=== PATIENT | male | born 1970 | race African-American/Black ===

== ENCOUNTER 2020-05-18 07:59 | Outpatient (REF) | payer OTHER, SELFPAY | END 2020-05-18 08:00 | disposition home or self-care (01) | LOC: HO.HOSX 07:59 | PROVIDERS: Visit Provider Physician Assistant | DX: M25.511 Pain in right shoulder (principal) | CPT/HCPCS: 20610; J1040 ==

== ENCOUNTER 2020-05-29 10:52 | Outpatient (REF) | payer OTHER, SELFPAY ==
--- NOTE | ~2020-05-29 | MR_ITS ---
EXAMINATION: MR SHOULDER WITHOUT CONTRAST, RIGHT CLINICAL INFORMATION: Unspecified injury of the muscles and tendons. Patient reports right shoulder pain. Decreased range of motion. Difficulty sleeping. COMPARISON: None TECHNIQUE: MRI of the shoulder without contrast was performed on a high-field scanner. FINDINGS: ROTATOR CUFF: The supraspinatus tendon is markedly thickened and heterogeneous with bursal surface fraying of the more posterior supraspinatus tendon fibers. Similar severe tendinosis is evident within the infraspinatus, more pronounced anteriorly. No discrete tears are identified. There is more mild subscapularis tendinosis. No muscle atrophy or fatty infiltration. As seen on image 14 and 15 of series 4, there is a 1.3 x 0.7 x 0.6 cm focus of low signal intensity present in the infraspinatus along the anterior aspect of the myotendinous junction, most consistent with calcific tendinitis. Additional foci of calcific tendinitis may be present near the insertion, though sensitivity is more limited due to the severity of the tendinosis in this region. BICEPS: Normal. CORACOACROMIAL ARCH: The undersurface of the acromion is flat with a small anterior subacromial spur. There is mild acromioclavicular osteoarthritis. A small volume of fluid is present in the subacromial-subdeltoid bursa, consistent with bursitis. LABRUM/CAPSULE: Posterosuperior labrum is diminutive and irregular, most consistent with labral degeneration. No discrete tears are identified. Joint capsule is intact. GLENOHUMERAL JOINT/MARROW: There is cortical irregularity at the humeral head posteriorly with mild underlying edema signal, potentially reactive to the overlying tendinosis or due to internal impingement. Glenohumeral articular cartilage appears relatively well-preserved. No fracture or malalignment. Small glenohumeral joint effusion. No loose bodies. MR/MR shoulder RT wo con IMPRESSION: 1. Severe supraspinatus and infraspinatus tendinosis without a discrete tear. A 1.3 cm focus of calcification is present at the myotendinous junction of the infraspinatus, likely corresponding to calcific tendinitis. Sensitivity for smaller foci is somewhat limited. 2. Mild acromioclavicular osteoarthritis. 3. Mild subacromial-subdeltoid bursitis. 4. Degenerative fraying of the posterosuperior glenoid labrum. Given the cortical irregularity and subcortical edema at the posterior aspect of the humeral head near the greater tuberosity, this could correspond to chronic changes of internal impingement (posterosuperior impingement).
== END 2020-05-29 10:53 | disposition home or self-care (01) ==
LOC: HO.MRI 10:52
PROVIDERS: Visit Provider Physician Assistant
DX: S46.001A Unspecified injury of muscle(s) and tendon(s) of the rotator cuff of right shoulder, initial encounter (principal); X58.XXXA Exposure to other specified factors, initial encounter; Y93.9 Activity, unspecified; Y92.9 Unspecified place or not applicable; Y99.9 Unspecified external cause status
CPT/HCPCS: 73221

== ENCOUNTER → 2020-06-16 10:18 | Outpatient (BNVA) | payer OTHER, SELFPAY | PROVIDERS: Visit Provider Physician Assistant ==

== ENCOUNTER 2020-07-26 09:00 | Outpatient (RCR) | payer OTHER, SELFPAY ==
--- NOTE | 2020-05-25 13:08 | MHC.PT.EP ---
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 HE IS A GOOD CANDIDATE FOR SKILLED PT TO ADDRESS THE ABOVE FINDINGS- TRAUMATIC IMPINGEMENT AND THE LEVEL OF RC INVOLVEMENT-> MRI FRIDAY. 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 Manual therapy to restore motion and function. Therapeutic exercise to improve strength and flexibility. Neuromuscular re-education for posture and balance. Therapeutic activities to return to functional activities of daily living. Electronically signed by: Viviana Schmidt,PT Please sign and return to therapist. Thank you for your referral.
--- NOTE | 2020-08-09 14:13 | MHC.PT.DC ---
[facility] [place] Office [place] Office [place] Office [address] Epi Ontiveros [address] [phone] F: [phone] F: [phone] F: [phone] F: [phone] Physical Therapy Discharge Report Diagnosis: RIGHT ROTATOR CUFF INJURY Date of Surgery: Date of Evaluation: 05/25/20 Date of Discharge: 08/09/20 Treatments to Date: 14 Cancellations to Date: 0 No Shows to Date: 2 Discharge Status: Achieved Goals Improved Function Independent with HEP Patient Elected to Stop Discharge Summary: Pt DEMON IMPROVED RC/ SCAP STRENGTH AND SCAP SYMMETRY- HE HAS IMPROVED FUNCT MOB/ ACTIVITY TOLERANCE, INDEP W SELF POSTURAL CORRECTION- AND IMPROVED AROM W RESIDUAL ROM RESTRICTION W IR POSTERIORLY Electronically signed by: Viviana Schmidt,PT Please sign and return to therapist. Thank you for your referral.
== END 2020-08-09 14:14 | disposition home or self-care (01) ==
LOC: HO.PTCHIC 09:00
PROVIDERS: Visit Provider Physician Assistant
DX: S46.009A Unspecified injury of muscle(s) and tendon(s) of the rotator cuff of unspecified shoulder, initial encounter (principal)
CPT/HCPCS: 97014; 97110; 97140; 97162

== ENCOUNTER → 2020-10-18 14:15 | Outpatient (BNVA) | payer OTHER, SELFPAY | PROVIDERS: Visit Provider Physician Assistant | DX: S46.001A Unspecified injury of muscle(s) and tendon(s) of the rotator cuff of right shoulder, initial encounter (principal) | CPT/HCPCS: 20610; J1040 ==

== ENCOUNTER 2021-02-21 08:39 | Outpatient (REF) | payer OTHER, SELFPAY ==
[2021-02-21 09:24] LABS: Binax Internal Control QC Valid; Binax Now Covid-19 Ag Negative (Negative)
== END 2021-02-21 08:40 | disposition home or self-care (01) ==
LOC: HO.LAB 08:39
PROVIDERS: Visit Provider Internal Medicine
DX: Z20.822 Contact with and (suspected) exposure to COVID-19 (principal)
CPT/HCPCS: C9803

== ENCOUNTER 2021-07-14 17:25 | Emergency (ER) | payer OTHER, SELFPAY ==
[2021-07-14 17:36] VITALS: BP 129/82; PULSE 74; RESP 18; TEMP 36.9; O2SAT 99; BMI 19.5
[2021-07-14] MEDS: Diphth,Pertus(ACell),Tet Adult 0.5 ML SYRINGE IM (19:34)
[2021-07-14] MEDS: Lidocaine HCl 2 % 20 ML VIAL 5 ML INFILTRATI (19:36)
--- NOTE | 2021-07-14 20:10 | ED_ITS ---
HPI - Wound/Laceration General Chief Complaint: Wound/Laceration Stated Complaint: Lac on L index finger Time Seen by Provider: 07/14/21 19:13 Source: patient Mode of arrival: ambulatory Limitations: no limitations History of Present Illness HPI narrative: 50-year-old male with laceration to left index finger that he sustained wall using a machine ii trimmer earlier today. Related Data Home Medications Medication Instructions Recorded Confirmed acetaminophen 325 mg capsule 325 mg PO QID PRN 05/18/20 (Tylenol) Allergies Allergy/AdvReac Type Severity Reaction Status Date / Time No Known Allergies Allergy Verified 10/18/20 14:29 Review of Systems Constitutional: Constitutional: Denies body ache(s), Denies chills, Denies fatigue, Denies fever(s), Denies headache(s), Denies malaise and Denies weakness Eyes: Eyes: Denies diplopia ENT: Denies vertigo, Denies dizziness, Denies otalgia, Denies headache(s), Denies mouth pain, Denies post nasal drip, Denies sinus pain, Denies sinus pressure, Denies sore throat and Denies throat swelling Cardiovascular: Cardiovascular: Denies chest pain, Denies syncope, Denies leg edema, Denies lightheadedness, Denies Loss of Consciousness, Denies palpitations and Denies dyspnea Respiratory: Respiratory: Denies chest congestion, Denies cough and Denies dyspnea Gastrointestinal: Gastrointestinal: Denies abdominal pain, Denies hematochezia, Denies constipation, Denies diarrhea and Denies vomiting Musculoskeletal: Musculoskeletal: Reports no additional musculoskeletal c omplaints Integumentary/Breasts: Skin/Breast: Reports wounds Comments: Laceration to left index finger tip Neurologic: Denies confusion, Denies vertigo, Denies dizziness, Denies syncope, Denies headache(s) and Denies weakness Psychiatric: Psychiatric: Denies anxiety, Denies confusion and Denies depression Endocrine: Endocrine: Denies fatigue and Denies palpitations Allergic/Immunologic: Allergic/Immunologic: Denies throat swelling [facility] Social History Social History (Updated 10/18/20 @ 14:30 by Can Damian) Advance Directives: No Advance Directives Information Provided: Yes Current occupational status: employed 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 Physical Exam Vital Signs: Vital Signs: Last Vital Signs Temp 98.5 F 07/14/21 17:36 Pulse 74 07/14/21 17:36 Resp 18 07/14/21 17:36 BP 129/82 07/14/21 17:36 Pulse Ox 99 07/14/21 17:36 BMI result Body Mass Index 19.5 Const: General: No confusion Nutritional Appearance: well nourished Orientation/consciousness: No confusion Limitations: no limitations Eyes: Conjunctivae: conjunctivae normal Pupils: Equal, round and reactive pupils present EOM: EOMs intact bilaterally Neck: Neck: Yes full ROM, Yes no lymphadenopathy and Yes supple Resp: Effort & Inspection: normal respiratory effort and able to speak in complete sentences Auscultation: clear to auscultation bilaterally, no crackles, no rales, no rhonchi and no wheezes Cardio: Rate: regular rate Rhythm: regular rhythm Heart sounds: S1 normal heart sound present and S2 normal heart sound present Skin: Other: Laceration to left index finger tip Neuro: General: No confusion Cranial nerves: Yes Equal, round and reactive pupils present Extrem: General: Yes normal to inspection and Yes full ROM Psych: Appearance: grossly normal Affect: normal affect Attitude: cooperative Thought process: Normal thought process present Course Course Course Narrative: Tetanus given, 3 sutures placed. Wound care instructions given, infection return precautions given, patient verbalized agreement and understanding Procedures Laceration Laceration 1: Site: hand Side (If applicable): left Size (cm): 2 Description: irregular Depth: simple, single layer Local Anesthetic: lidocaine 2% Amount of anesthesia used (mL): 3 Pre-repair: wound explored, irrigated extensively and deep structures in tact Skin layer closed with: vicryl Size (cm): 5-0 Number of sutures: 3 Technique: simple, interrupted Discharge Plan Discharge Clinical Impression: Laceration of finger of left hand Patient Disposition: Home, Self-Care Instructions: Care For Your Stitches (ED), Finger Laceration (ED) Additional Instructions: You have THREE stitches. Please return to have them removed in 7 days, on July 21. You may come back here to the emergency room, or you may have them removed at any urgent care. Please leave the dressing we put on it until tomorrow at this time. Then you may take it off, wash with soap and water, gently pat dry, apply thin layer of bacitracin, a nonstick dressing, and wrap with gauze. Do the same procedure every 24 hours for the next 3 or 4 days. After that, you may just wash daily with soap and water, and use a Band-Aid. If you have redness, swelling, warmth, or worsening pain, please return to be seen because these are signs of infection. Please return to emergency room for any new or concerning symptoms Prescriptions: No Action acetaminophen [Tylenol] 325 mg capsule 325 mg PO QID [id number]
== END 2021-07-14 20:30 | disposition home or self-care (01) ==
PROVIDERS: Emergency Provider Emergency Medicine
DX: S61.211A Laceration without foreign body of left index finger without damage to nail, initial encounter (principal); W29.3XXA Contact with powered garden and outdoor hand tools and machinery, initial encounter; Y93.9 Activity, unspecified; Y92.9 Unspecified place or not applicable; Y99.9 Unspecified external cause status
CPT/HCPCS: 12001; 90471; 90715; 99284

== ENCOUNTER 2022-04-16 18:23 | Inpatient (IN) | payer OTHER, SELFPAY ==
--- NOTE | ~2022-04-16 | CT_ITS ---
EXAMINATION: CT HEAD WITHOUT CONTRAST CT ANGIOGRAM HEAD CT ANGIOGRAM NECK CLINICAL INFORMATION: Aphasia. COMPARISON: None available. TECHNIQUE: Initial noncontrast joiner imaging of the head and neck was performed. Noncontrast head CT was also performed. Test bolus sequences followed by intravenous administration 70 mL of Omnipaque 350. Helical imaging was performed in the axial plane from the aortic arch to the skull vertex. Delayed postcontrast imaging of the head was also performed. The data was processed at the veterinary surgery technologist's workstation for generation of MIP sequences. Angled MIPs and volume rendered reformatted images were also generated at an offline 3D workstation. Stenoses are assessed in accordance with NASCET criteria unless otherwise indicated. This CT examination was performed using dose optimization techniques as appropriate, variously including the following: *Automated exposure control. *Adjustment of mA and/or kV according to patient size (this includes techniques or standardized protocols for targeted exams where dose is matched to indication/reason for exam; i.e. extremities or head). *Use of iterative reconstruction technique. DLP: 2225 mGy-cm FINDINGS: CT Head: There is no evidence of acute intracranial hemorrhage or edematous territorial infarction. There is no abnormal attenuation within the brain parenchyma. Ag-white matter differentiation is preserved. The ventricles are normal in size and configuration. No evidence for obstructive hydrocephalus. No abnormal mass effect or midline shift. No extra-axial fluid collections. No pathologic intra-axial enhancement or regional oligemia. No acute soft tissue or osseous abnormalities. Mild mucosal thickening of the paranasal sinuses. The mastoid air cells and middle ear cavities are clear. Multifocal odontogenic enamel erosions and periapical lucencies. CT Neck: The thyroid gland and remaining cervical soft tissues are within normal limits. Reversal the normal cervical lordosis centered on C4-C5. Moderate multilevel degenerative spondyloarthropathy of the cervical spine. CT Upper Chest: Mild to moderate centrilobular emphysema demonstrated in the visualized upper lungs. Otherwise, the Visualized lung apices and upper mediastinum are within normal limits. Neck CTA: Aortic Arch: Normal contour and caliber. Two vessel branching pattern of the arch with left common carotid artery arising from the brachiocephalic trunk. Great Vessel Origins: No significant stenosis of the branch origins. Right Common Carotid Artery: No focal stenosis or occlusion. Cervical Right Internal Carotid Artery: Mild calcific atherosclerotic disease of the carotid bulb and proximal internal carotid artery without flow-limiting stenosis. Left Common Carotid Artery: No focal stenosis or occlusion. Cervical Left Internal Carotid Artery: Mild calcific atherosclerotic disease of the carotid bulb and proximal internal carotid artery without flow-limiting stenosis. Cervical Right Vertebral Artery: No focal stenosis or occlusion. Cervical Left Vertebral Artery: Mildly dominant. No focal stenosis or occlusion. Brain CTA: Intracranial Internal Carotid Arteries: Mild calcific atherosclerotic disease of the intracranial internal carotid arteries without occlusion or flow-limiting stenosis. Right Anterior Cerebral Artery: Normal A1 segment. Normal opacification of the distal ARON segments. Left Anterior Cerebral Artery: Normal A1 segment. Normal opacification of the distal ARON segments. Anterior Communicating Artery: Normal. Right Middle Cerebral Artery: Normal M1 segment of the MCA without focal stenosis or occlusion. Normal arborization of the distal segments. Left Middle Cerebral Artery: Normal M1 segment of the MCA without focal stenosis or occlusion. Normal arborization of the distal segments. Right Vertebral Artery: Normal V4 segment. The posterior inferior cerebellar artery is not well opacified; however, there is no CT evidence of acute occlusion. Left Vertebral Artery: Normal V4 segment. Normal opacification of the proximal segments of the posterior inferior cerebellar artery. Basilar Artery: Normal without focal stenosis or occlusion. Normal appearance of the proximal superior cerebellar arteries. Right Posterior Cerebral Artery: Normal P1 segment. Normal opacification of the distal BUNCHER MACHINE segments. Left Posterior Cerebral Artery: Normal P1 segment. Normal opacification of the distal BUNCHER MACHINE segments. Normal opacification of the superior sagittal, straight, transverse, and sigmoid sinuses. CT/CT head/brain wo IV con IMPRESSION: 1. No evidence of acute intracranial hemorrhage or edematous territorial infarction. 2. CTA of the head and neck without proximal occlusion or flow-limiting stenosis. 3. Extensive multifocal odontogenic disease. 4. Emphysema.
--- NOTE | ~2022-04-16 | CT_ITS ---
EXAMINATION: CT HEAD WITHOUT CONTRAST CT ANGIOGRAM HEAD CT ANGIOGRAM NECK CLINICAL INFORMATION: Aphasia. COMPARISON: None available. TECHNIQUE: Initial noncontrast top ironer imaging of the head and neck was performed. Noncontrast head CT was also performed. Test bolus sequences followed by intravenous administration 70 mL of Omnipaque 350. Helical imaging was performed in the axial plane from the aortic arch to the skull vertex. Delayed postcontrast imaging of the head was also performed. The data was processed at the senior technologist's workstation for generation of MIP sequences. Angled MIPs and volume rendered reformatted images were also generated at an offline 3D workstation. Stenoses are assessed in accordance with NASCET criteria unless otherwise indicated. This CT examination was performed using dose optimization techniques as appropriate, variously including the following: *Automated exposure control. *Adjustment of mA and/or kV according to patient size (this includes techniques or standardized protocols for targeted exams where dose is matched to indication/reason for exam; i.e. extremities or head). *Use of iterative reconstruction technique. DLP: 2225 mGy-cm FINDINGS: CT Head: There is no evidence of acute intracranial hemorrhage or edematous territorial infarction. There is no abnormal attenuation within the brain parenchyma. Ag-white matter differentiation is preserved. The ventricles are normal in size and configuration. No evidence for obstructive hydrocephalus. No abnormal mass effect or midline shift. No extra-axial fluid collections. No pathologic intra-axial enhancement or regional oligemia. No acute soft tissue or osseous abnormalities. Mild mucosal thickening of the paranasal sinuses. The mastoid air cells and middle ear cavities are clear. Multifocal odontogenic enamel erosions and periapical lucencies. CT Neck: The thyroid gland and remaining cervical soft tissues are within normal limits. Reversal the normal cervical lordosis centered on C4-C5. Moderate multilevel degenerative spondyloarthropathy of the cervical spine. CT Upper Chest: Mild to moderate centrilobular emphysema demonstrated in the visualized upper lungs. Otherwise, the Visualized lung apices and upper mediastinum are within normal limits. Neck CTA: Aortic Arch: Normal contour and caliber. Two vessel branching pattern of the arch with left common carotid artery arising from the brachiocephalic trunk. Great Vessel Origins: No significant stenosis of the branch origins. Right Common Carotid Artery: No focal stenosis or occlusion. Cervical Right Internal Carotid Artery: Mild calcific atherosclerotic disease of the carotid bulb and proximal internal carotid artery without flow-limiting stenosis. Left Common Carotid Artery: No focal stenosis or occlusion. Cervical Left Internal Carotid Artery: Mild calcific atherosclerotic disease of the carotid bulb and proximal internal carotid artery without flow-limiting stenosis. Cervical Right Vertebral Artery: No focal stenosis or occlusion. Cervical Left Vertebral Artery: Mildly dominant. No focal stenosis or occlusion. Brain CTA: Intracranial Internal Carotid Arteries: Mild calcific atherosclerotic disease of the intracranial internal carotid arteries without occlusion or flow-limiting stenosis. Right Anterior Cerebral Artery: Normal A1 segment. Normal opacification of the distal ARON segments. Left Anterior Cerebral Artery: Normal A1 segment. Normal opacification of the distal ARON segments. Anterior Communicating Artery: Normal. Right Middle Cerebral Artery: Normal M1 segment of the MCA without focal stenosis or occlusion. Normal arborization of the distal segments. Left Middle Cerebral Artery: Normal M1 segment of the MCA without focal stenosis or occlusion. Normal arborization of the distal segments. Right Vertebral Artery: Normal V4 segment. The posterior inferior cerebellar artery is not well opacified; however, there is no CT evidence of acute occlusion. Left Vertebral Artery: Normal V4 segment. Normal opacification of the proximal segments of the posterior inferior cerebellar artery. Basilar Artery: Normal without focal stenosis or occlusion. Normal appearance of the proximal superior cerebellar arteries. Right Posterior Cerebral Artery: Normal P1 segment. Normal opacification of the distal IT INVESTMENT/PORTFOLIO MANAGER segments. Left Posterior Cerebral Artery: Normal P1 segment. Normal opacification of the distal IT INVESTMENT/PORTFOLIO MANAGER segments. Normal opacification of the superior sagittal, straight, transverse, and sigmoid sinuses. CT/CT angio head neck IMPRESSION: 1. No evidence of acute intracranial hemorrhage or edematous territorial infarction. 2. CTA of the head and neck without proximal occlusion or flow-limiting stenosis. 3. Extensive multifocal odontogenic disease. 4. Emphysema.
--- NOTE | ~2022-04-16 | MR_ITS ---
EXAMINATION: MR BRAIN WITHOUT CONTRAST CLINICAL INFORMATION: aphasia COMPARISON: CTA head and neck 04/16/2022 TECHNIQUE: MRI of the brain was obtained using routine sequences without contrast. FINDINGS: Mildly motion degraded examination. There is an acute left MCA territory infarct involving the left frontal lobe inclusive of the left precentral gyrus and left middle frontal gyrus, left insula, left temporal operculum, and left rice radiata, seen to better advantage on MRI due to increased sensitivity. There is no significant mass effect or hemorrhagic transformation. There is associated oligemia within the left MCA complex distal branches with FLAIR hyperintense signal. No extra-axial fluid collection. The ventricles and sulci are normal in size and configuration without significant volume loss or hydrocephalus. Normal dural venous sinus flow voids. Normal appearance of the midline structures. The orbits are grossly unremarkable. Trace mucosal disease throughout the ethmoid air cells. The mastoid air cells are well aerated. Chronic appearing C4 inferior endplate compression fracture with minimal height loss. No suspicious osseous lesion. MR/MR head/brain wo con IMPRESSION: Acute left MCA territory infarct involving the left frontal lobe inclusive of the left precentral gyrus and left middle frontal gyrus, left insula, left temporal operculum, and left rice radiata, seen to better advantage on MRI due to increased sensitivity. No significant mass effect or hemorrhagic transformation.
--- NOTE | 2022-04-16 18:36 | ED_ITS ---
HPI - General Adult General Chief complaint: Altered Mental Status <Keysha Mosley CNP - Last Filed: 04/16/22 18:54> Stated complaint: Confusion/ Anxious? <Keysha Mosley CNP - Last Filed: 04/16/22 18:54> Time Seen by Provider: 04/16/22 19:00 <Keysha Mosley CNP - Last Filed: 04/16/22 18:54> Source: patient and family <Larissa Julio MD - Last Filed: 04/16/22 20:37> Mode of arrival: ambulatory <Larissa Julio MD - Last Filed: 04/16/22 20:37> Limitations: no limitations <Larissa Julio MD - Last Filed: 04/16/22 20:37> History of Present Illness HPI narrative: Patient comes to the emergency room complaining of dysarthria and aphasia. Patient comes accompanied by his . The explains that the patient has had a hard time finding and saying words. Patient can answer yes no questions. Patient understands the conversations but is unable to express himself and he gets very frustrated. The last time the patient was seen well was approximately at 06:00, 14 hours ago. The patient's states that only conversation that they had early this morning, patient's asked the patient if it was okay to turn on the light, he answered yes but that was the only conversation they had. The last real conversation had was approximately 24 hours ago. Patient is awake alert but cannot express himself. Patient seems frustrated. <Larissa Julio MD - Last Filed: 04/16/22 20:37> Related Data Home medications: Home Medications Medication Instructions Recorded Confirmed No Known Home Meds 04/16/22 04/16/22 <Keysha Mosley CNP - Last Filed: 04/16/22 18:54> Allergies/adverse reactions: Allergies Allergy/AdvReac Type Severity Reaction Status Date / Time No Known Allergies Allergy Verified 10/18/20 14:29 <Keysha Mosley CNP - Last Filed: 04/16/22 18:54> Review of Systems Review of Systems: Constitutional : No Weight loss, No Fever, No Chills, No Night Sweats, No Fatigue, No Malaise ENT/Mouth : No Hearing loss, No Ear Pain, No Nasal Congestion, No Sinus Pain, No Hoarseness, No sore throat, No Rhinorrhea, No Swallowing Difficulty Eyes: No Eye Pain, No Swelling, No Redness, No Foreign Body, No Discharge, No Vision Changes Cardiovascular : No Chest Pain, No SOB, No Dyspnea on Exertion, No Orthopnea, No Edema, No Palpitations Respiratory : No Cough, No Sputum, No Wheezing, No Smoke Exposure, No Dyspnea Gastrointestinal : No Nausea, No Vomiting, No Diarrhea, No Constipation, No abdominal Pain, No Hematochezia, No Melena Genitourinary : no irregular bleeding, No Dysuria, No Urinary Frequency, No Hematuria, No Urinary Incontinence, No Urgency, No Flank Pain, No Urinary Flow Changes, No Hesitancy Musculoskeletal : No joint pain, No Myalgias, No Joint Swelling Skin : No Skin Lesions, No rash Neuro : Difficulty finding words, difficulty expressing words. 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 <Keysha Mosley CNP - Last Filed: 04/16/22 18:54> Physical Exam ED Vital Signs: Vital Signs - 24 hr 04/16/22 18:38 04/16/22 19:39 Temperature 97.9 F 98.5 F Pulse Rate 73 69 Respiratory Rate 18 16 Blood Pressure 152/91 H 122/82 Pulse Oximetry 99 100 Oxygen Delivery Method Room Air Room Air BMI result Body Mass Index 20.3 <Keysha Mosley CNP - Last Filed: 04/16/22 18:54> Vital Signs - 24 hr 04/16/22 18:38 04/16/22 19:39 Temperature 97.9 F 98.5 F Pulse Rate 73 69 Respiratory Rate 18 16 Blood Pressure 152/91 H 122/82 Pulse Oximetry 99 100 Oxygen Delivery Method Room Air Room Air BMI result Body Mass Index 20.3 <Larissa Julio MD - Last Filed: 04/16/22 20:37> NIH Stroke Scale Time: 18:41 <Keyshaladi Mosley CNP - Last Filed: 04/16/22 18:54> Level of Consciousness: Alert <Keyshaladi Mosley CNP - Last Filed: 04/16/22 18:54> Level of Consciousness Questions: Answers both questions correctly <Keysha Lisakayy Mosley CNP - Last Filed: 04/16/22 18:54> Level of Consciousness Commands: Performs both tasks correctly <Keyshaladi Mosley CNP - Last Filed: 04/16/22 18:54> Best Gaze: Normal <Keyshaladi Mosley CNP - Last Filed: 04/16/22 18:54> Visual: No visual loss <Keyshaladi Mosley CNP - Last Filed: 04/16/22 18:54> Facial Palsy: Normal <Keysha Lisakayy Mosley CNP - Last Filed: 04/16/22 18:54> Motor Arm (Right): No drift <Keyshaladi Mosley CNP - Last Filed: 04/16/22 18:54> Motor Arm (Left): No drift <Keyshaladi Mosley CNP - Last Filed: 04/16/22 18:54> Motor Leg (Right): No drift <Keysha Lisa Mosley CNP - Last Filed: 04/16/22 18:54> Motor Leg (Left): No drift <Keysha Lisa MANJINDER Mosley - Last Filed: 04/16/22 18:54> Limb Ataxia: Absent <Keysha Mosley CNP - Last Filed: 04/16/22 18:54> Sensory: Normal <Keysha Lisa Mosley CNP - Last Filed: 04/16/22 18:54> Best Language: No aphasia <Keysha Mosley CNP - Last Filed: 04/16/22 18:54> Dysarthia: Normal <Keysha Lisa Mosley CNP - Last Filed: 04/16/22 18:54> Extinction and Inattention: No abnormality <Keysha Mosley CNP - Last Filed: 04/16/22 18:54> Score: 0 <Keysha Mosley CNP - Last Filed: 04/16/22 18:54> 0 <Larissa Julio MD - Last Filed: 04/16/22 20:37> Course Course Course Narrative: This is an RME: Additional HPI, ROS, PE not included below will be deferred to primary provider. Patient is a 51-year-old male who presents to the emergency department. is present [id number]. came home from work at 1730, patient sitting on couch, patient seeming confused, not responding to articulate questions appropriately. He is able to state hsi name, when asked questions such as where is daughter, he said I just cant say it . Patient able to identify objects; glasses, phone, pen without difficulty. reports not pmhx, no daily medications. Denies drug or alcohol usage. PE: no focal neurological deficits. NIH stroke score 0 Plan: labs, CT/ CTA head and neck, spoke with ED attending Dr. Julio, agrees with plan <Keysha Mosley CNP - Last Filed: 04/16/22 18:54> Medications Administered Discontinued Medications Generic Name Dose Route Start Last Admin Trade Name Freq PRN Reason Stop Dose Admin Iohexol 70 ml 04/16/22 19:29 04/16/22 19:29 Iohexol 350 Mg/Ml 75 Ml Infus..Btl IV 04/16/22 19:30 70 ml ONCE ONE Administration <Keyshaladi Mosley CNP - Last Filed: 04/16/22 18:54> Medications Administered Discontinued Medications Generic Name Dose Route Start Last Admin Trade Name Freq PRN Reason Stop Dose Admin Iohexol 70 ml 04/16/22 19:29 04/16/22 19:29 Iohexol 350 Mg/Ml 75 Ml Infus..Btl IV 04/16/22 19:30 70 ml ONCE ONE Administration <Larissa Julio MD - Last Filed: 04/16/22 20:37> Medical Decision Making Medical Decision Making MDM Narrative: -patient's labs are relatively unremarkable. -patient's toxicology positive for marijuana. -I discussed the CT scan with radiology, CT scan and CTA are both negative for any acute findings. -discussed with the patient that he will be admitted, he will need a full workup and neurology consult. <Larissa Julio MD - Last Filed: 04/16/22 20:37> Differential Diagnosis Differential Diagnoses: The differential diagnosis associated with the presentation includes (Embolic CVA, hemorrhagic CVA, substance abuse) <Larissa Julio MD - Last Filed: 04/16/22 20:37> Admission/Observation Consideration of admission/observation: Escalation of care including admission/observation considered <Larissa Julio MD - Last Filed: 04/16/22 20:37> Consult Healthcare Provider Management of the patient was discussed with: Hospitalist <Larissa Julio MD - Last Filed: 04/16/22 20:37> Lab Data MDM Lab Attestation statement: I reviewed the patient's lab results. <Larissa Julio MD - Last Filed: 04/16/22 20:37> Result Diagrams: 04/16/22 18:48 04/16/22 18:48 <Keysha Mosley CNP - Last Filed: 04/16/22 18:54> Labs: Lab Results 04/16/22 04/16/22 04/16/22 Range/Units 18:48 18:48 18:48 WBC 11.1 H (4.8-10.8) X10*3/uL RBC 4.83 (4.60-5.80) X10*6/uL Hgb 14.9 (14.0-18.0) g/dl Hct 43.3 (42.0-52.0) % MCV 89.6 (80.0-98.0) fL MCH 30.8 (27.0-33.0) pg MCHC 34.4 (31.0-36.0) g/dl RDW 13.4 (11.0-16.0) % Plt Count 306 (160-400) X10*3/uL MPV 8.3 L (9.4-12.4) fL Immature Gran % (Auto) 0.3 (0.0-0.4) % Neut % (Auto) 68.2 (45-73) % Lymph % (Auto) 23.0 (20-40) % [place] % (Auto) 7.1 (2-11) % Eos % (Auto) 0.3 (0-4) % Baso % (Auto) 1.1 (0-2) % Lymph # (Auto) 2.6 (1.2-4.9) X10*3/uL [place] # (Auto) 0.8 (0.1-1.2) X10*3/uL Eos # (Auto) 0.0 (0.0-0.4) X10*3/uL Baso # (Auto) 0.1 (0.0-0.2) X10*3/uL Abs Immat Gran (auto) 0.03 (0.00-0.03) X10*3/uL Absolute Neuts (auto) 7.6 (2.0-8.3) x10*3/uL Absolute Nucleated RBC 0.000 (0.0-0.012) X10*3/uL Nucleated RBC % (auto) 0.0 (0.0-0.2) /100WBC PT 10.9 (10.0-13.1) SEC INR 1.0 (0.9-1.1) Sodium 139 (135-145) mmol/L Potassium 4.0 (3.3-5.1) mmol/L Chloride 105 (96-108) mmol/L Carbon Dioxide 23 (22-29) mmol/L Anion Gap 15 (12-20) BUN 8 L (9-16) mg/dL Creatinine 0.99 (0.5-1.4) mg/dL Estim Creat Clear Calc 72.7 Estimated GFR > 60 Random Glucose 98 (60-115) mg/dL Calcium 9.5 (8.4-10.2) mg/dL Total Bilirubin 0.5 (0.0-1.0) mg/dL AST 25 (5-37) U/L ALT 12 (0-40) U/L Alkaline Phosphatase 97 (39-117) U/L Total Protein 7.5 (6.5-8.0) g/dL Albumin 4.4 (3.5-5.0) g/dL Urine Opiates Screen (Not Detect) Urine Fentanyl Screen (Not Detect) Ur Barbiturates Screen (Not Detect) Ur Phencyclidine Scrn (Not Detect) Ur Amphetamines Screen (Not Detect) U Benzodiazepines Scrn (Not Detect) Urine Cocaine Screen (Not Detect) U Marijuana (THC) Screen (Not Detect) 04/16/22 Range/Units 18:52 WBC (4.8-10.8) X10*3/uL RBC (4.60-5.80) X10*6/uL Hgb (14.0-18.0) g/dl Hct (42.0-52.0) % MCV (80.0-98.0) fL MCH (27.0-33.0) pg MCHC (31.0-36.0) g/dl RDW (11.0-16.0) % Plt Count (160-400) X10*3/uL MPV (9.4-12.4) fL Immature Gran % (Auto) (0.0-0.4) % Neut % (Auto) (45-73) % Lymph % (Auto) (20-40) % [place] % (Auto) (2-11) % Eos % (Auto) (0-4) % Baso % (Auto) (0-2) % Lymph # (Auto) (1.2-4.9) X10*3/uL [place] # (Auto) (0.1-1.2) X10*3/uL Eos # (Auto) (0.0-0.4) X10*3/uL Baso # (Auto) (0.0-0.2) X10*3/uL Abs Immat Gran (auto) (0.00-0.03) X10*3/uL Absolute Neuts (auto) (2.0-8.3) x10*3/uL Absolute Nucleated RBC (0.0-0.012) X10*3/uL Nucleated RBC % (auto) (0.0-0.2) /100WBC PT (10.0-13.1) SEC INR (0.9-1.1) Sodium (135-145) mmol/L Potassium (3.3-5.1) mmol/L Chloride (96-108) mmol/L Carbon Dioxide (22-29) mmol/L Anion Gap (12-20) BUN (9-16) mg/dL Creatinine (0.5-1.4) mg/dL Estim Creat Clear Calc Estimated GFR Random Glucose (60-115) mg/dL Calcium (8.4-10.2) mg/dL Total Bilirubin (0.0-1.0) mg/dL AST (5-37) U/L ALT (0-40) U/L Alkaline Phosphatase (39-117) U/L Total Protein (6.5-8.0) g/dL Albumin (3.5-5.0) g/dL Urine Opiates Screen Not Detected (Not Detect) Urine Fentanyl Screen Not Detected (Not Detect) Ur Barbiturates Screen Not Detected (Not Detect) Ur Phencyclidine Scrn Not Detected (Not Detect) Ur Amphetamines Screen Not Detected (Not Detect) U Benzodiazepines Scrn Not Detected (Not Detect) Urine Cocaine Screen Not Detected (Not Detect) U Marijuana (THC) Screen POSITIVE H (Not Detect) <Keysha Mosley CNP - Last Filed: 04/16/22 18:54> Lab Results 04/16/22 04/16/22 04/16/22 Range/Units 18:48 18:48 18:48 WBC 11.1 H (4.8-10.8) X10*3/uL RBC 4.83 (4.60-5.80) X10*6/uL Hgb 14.9 (14.0-18.0) g/dl Hct 43.3 (42.0-52.0) % MCV 89.6 (80.0-98.0) fL MCH 30.8 (27.0-33.0) pg MCHC 34.4 (31.0-36.0) g/dl RDW 13.4 (11.0-16.0) % Plt Count 306 (160-400) X10*3/uL MPV 8.3 L (9.4-12.4) fL Immature Gran % (Auto) 0.3 (0.0-0.4) % Neut % (Auto) 68.2 (45-73) % Lymph % (Auto) 23.0 (20-40) % [place] % (Auto) 7.1 (2-11) % Eos % (Auto) 0.3 (0-4) % Baso % (Auto) 1.1 (0-2) % Lymph # (Auto) 2.6 (1.2-4.9) X10*3/uL [place] # (Auto) 0.8 (0.1-1.2) X10*3/uL Eos # (Auto) 0.0 (0.0-0.4) X10*3/uL Baso # (Auto) 0.1 (0.0-0.2) X10*3/uL Abs Immat Gran (auto) 0.03 (0.00-0.03) X10*3/uL Absolute Neuts (auto) 7.6 (2.0-8.3) x10*3/uL Absolute Nucleated RBC 0.000 (0.0-0.012) X10*3/uL Nucleated RBC % (auto) 0.0 (0.0-0.2) /100WBC PT 10.9 (10.0-13.1) SEC INR 1.0 (0.9-1.1) Sodium 139 (135-145) mmol/L Potassium 4.0 (3.3-5.1) mmol/L Chloride 105 (96-108) mmol/L Carbon Dioxide 23 (22-29) mmol/L Anion Gap 15 (12-20) BUN 8 L (9-16) mg/dL Creatinine 0.99 (0.5-1.4) mg/dL Estim Creat Clear Calc 72.7 Estimated GFR > 60 Random Glucose 98 (60-115) mg/dL Calcium 9.5 (8.4-10.2) mg/dL Total Bilirubin 0.5 (0.0-1.0) mg/dL AST 25 (5-37) U/L ALT 12 (0-40) U/L Alkaline Phosphatase 97 (39-117) U/L Total Protein 7.5 (6.5-8.0) g/dL Albumin 4.4 (3.5-5.0) g/dL Urine Opiates Screen (Not Detect) Urine Fentanyl Screen (Not Detect) Ur Barbiturates Screen (Not Detect) Ur Phencyclidine Scrn (Not Detect) Ur Amphetamines Screen (Not Detect) U Benzodiazepines Scrn (Not Detect) Urine Cocaine Screen (Not Detect) U Marijuana (THC) Screen (Not Detect) 04/16/22 Range/Units 18:52 WBC (4.8-10.8) X10*3/uL RBC (4.60-5.80) X10*6/uL Hgb (14.0-18.0) g/dl Hct (42.0-52.0) % MCV (80.0-98.0) fL MCH (27.0-33.0) pg MCHC (31.0-36.0) g/dl RDW (11.0-16.0) % Plt Count (160-400) X10*3/uL MPV (9.4-12.4) fL Immature Gran % (Auto) (0.0-0.4) % Neut % (Auto) (45-73) % Lymph % (Auto) (20-40) % [place] % (Auto) (2-11) % Eos % (Auto) (0-4) % Baso % (Auto) (0-2) % Lymph # (Auto) (1.2-4.9) X10*3/uL [place] # (Auto) (0.1-1.2) X10*3/uL Eos # (Auto) (0.0-0.4) X10*3/uL Baso # (Auto) (0.0-0.2) X10*3/uL Abs Immat Gran (auto) (0.00-0.03) X10*3/uL Absolute Neuts (auto) (2.0-8.3) x10*3/uL Absolute Nucleated RBC (0.0-0.012) X10*3/uL Nucleated RBC % (auto) (0.0-0.2) /100WBC PT (10.0-13.1) SEC INR (0.9-1.1) Sodium (135-145) mmol/L Potassium (3.3-5.1) mmol/L Chloride (96-108) mmol/L Carbon Dioxide (22-29) mmol/L Anion Gap (12-20) BUN (9-16) mg/dL Creatinine (0.5-1.4) mg/dL Estim Creat Clear Calc Estimated GFR Random Glucose (60-115) mg/dL Calcium (8.4-10.2) mg/dL Total Bilirubin (0.0-1.0) mg/dL AST (5-37) U/L ALT (0-40) U/L Alkaline Phosphatase (39-117) U/L Total Protein (6.5-8.0) g/dL Albumin (3.5-5.0) g/dL Urine Opiates Screen Not Detected (Not Detect) Urine Fentanyl Screen Not Detected (Not Detect) Ur Barbiturates Screen Not Detected (Not Detect) Ur Phencyclidine Scrn Not Detected (Not Detect) Ur Amphetamines Screen Not Detected (Not Detect) U Benzodiazepines Scrn Not Detected (Not Detect) Urine Cocaine Screen Not Detected (Not Detect) U Marijuana (THC) Screen POSITIVE H (Not Detect) <Larissa Julio MD - Last Filed: 04/16/22 20:37> Independent Interpretation I performed an independent interpretation of an: CT Scan (My interpretation of head CT without contrast: No acute findings, no intracranial bleed) <Larissa Julio MD - Last Filed: 04/16/22 20:37> Radiology Impression Discussion of test interpretation with radiology: I have reviewed the radiologist's reading. <Larissa Julio MD - Last Filed: 04/16/22 20:37> Radiologist Impression: FINDINGS: CT Head: There is no evidence of acute intracranial hemorrhage or edematous territorial infarction. There is no abnormal attenuation within the brain parenchyma. Ag-white matter differentiation is preserved. The ventricles are normal in size and configuration. No evidence for obstructive hydrocephalus. No abnormal mass effect or midline shift. No extra-axial fluid collections. No pathologic intra-axial enhancement or regional oligemia. No acute soft tissue or osseous abnormalities. Mild mucosal thickening of the paranasal sinuses. The mastoid air cells and middle ear cavities are clear. Multifocal odontogenic enamel erosions and periapical lucencies. CT Neck: The thyroid gland and remaining cervical soft tissues are within normal limits. Reversal the normal cervical lordosis centered on C4-C5. Moderate multilevel degenerative spondyloarthropathy of the cervical spine. CT Upper Chest: Mild to moderate centrilobular emphysema demonstrated in the visualized upper lungs. Otherwise, the Visualized lung apices and upper mediastinum are within normal limits. Neck CTA: Aortic Arch: Normal contour and caliber. Two vessel branching pattern of the arch with left common carotid artery arising from the brachiocephalic trunk. Great Vessel Origins: No significant stenosis of the branch origins. Right Common Carotid Artery: No focal stenosis or occlusion. Cervical Right Internal Carotid Artery: Mild calcific atherosclerotic disease of the carotid bulb and proximal internal carotid artery without flow-limiting stenosis. Left Common Carotid Artery: No focal stenosis or occlusion. Cervical Left Internal Carotid Artery: Mild calcific atherosclerotic disease of the carotid bulb and proximal internal carotid artery without flow-limiting stenosis. Cervical Right Vertebral Artery: No focal stenosis or occlusion. Cervical Left Vertebral Artery: Mildly dominant. No focal stenosis or occlusion. Brain CTA: Intracranial Internal Carotid Arteries: Mild calcific atherosclerotic disease of the intracranial internal carotid arteries without occlusion or flow-limiting stenosis. Right Anterior Cerebral Artery: Normal A1 segment. Normal opacification of the distal ARON segments. Left Anterior Cerebral Artery: Normal A1 segment. Normal opacification of the distal ARON segments. Anterior Communicating Artery: Normal. Right Middle Cerebral Artery: Normal M1 segment of the MCA without focal stenosis or occlusion. Normal arborization of the distal segments. Left Middle Cerebral Artery: Normal M1 segment of the MCA without focal stenosis or occlusion. Normal arborization of the distal segments. Right Vertebral Artery: Normal V4 segment. The posterior inferior cerebellar artery is not well opacified; however, there is no CT evidence of acute occlusion. Left Vertebral Artery: Normal V4 segment. Normal opacification of the proximal segments of the posterior inferior cerebellar artery. Basilar Artery: Normal without focal stenosis or occlusion. Normal appearance of the proximal superior cerebellar arteries. Right Posterior Cerebral Artery: Normal P1 segment. Normal opacification of the distal [employer]INE[employer]ING segments. Left Posterior Cerebral Artery: Normal P1 segment. Normal opacification of the distal [employer]INEERING segments. Normal opacification of the superior sagittal, straight, transverse, and sigmoid sinuses. CT/CT angio head neck IMPRESSION: 1.? No evidence of acute intracranial hemorrhage or edematous territorial infarction. 2.? CTA of the head and neck without proximal occlusion or flow-limiting stenosis. 3.? Extensive multifocal odontogenic disease. 4.? Emphysema. ? <Larissa Julio MD - Last Filed: 04/16/22 20:37> Discharge Plan Discharge Clinical Impression: Dysarthria, Aphasia, Brain TIA <Keysha Mosley CNP - Last Filed: 04/16/22 18:54> Patient Disposition: Admitted As Inpatient <Keysha Mosley CNP - Last Filed: 04/16/22 18:54> Prescriptions: No Action No Known Home Meds <Keysha Mosley CNP - Last Filed: 04/16/22 18:54>
[2022-04-16 18:38] VITALS: BP 152/91; PULSE 73; RESP 18; TEMP 36.6; O2SAT 99; BMI 20.3
[2022-04-16 18:53] LABS: MANUAL DIFF FLAG NO
[2022-04-16 18:55] LABS: Basophils Absolute Auto 0.1 X10*3/uL (0.0-0.2); Basophils Percent Auto 1.1 % (0-2); Eosinophils Percent Auto 0.3 % (0-4); Hematocrit 43.3 % (42.0-52.0); Hemoglobin 14.9 g/dl (14.0-18.0); Imm Gran Abs Auto 0.03 X10*3/uL (0.00-0.03); Imm Gran Pct Auto 0.3 % (0.0-0.4); Lymphocytes Absolute Auto 2.6 X10*3/uL (1.2-4.9); Mean Corpuscular HGB Conc 34.4 g/dl (31.0-36.0); Mean Corpuscular Hemoglobin 30.8 pg (27.0-33.0); Mean Corpuscular Volume 89.6 fL (80.0-98.0); Mean Platelet Volume 8.3 fL (9.4-12.4); Monocytes Absolute Auto 0.8 X10*3/uL (0.1-1.2); Monocytes Percent Auto 7.1 % (2-11); Neutrophils Absolute Auto 7.6 x10*3/uL (2.0-8.3); Neutrophils Percent Auto 68.2 % (45-73); Platelet Count 306 X10*3/uL (160-400); Red Blood Count 4.83 X10*6/uL (4.60-5.80); Red Cell Distribution Width 13.4 % (11.0-16.0); White Blood Count 11.1 X10*3/uL (4.8-10.8)
[2022-04-16 19:06] LABS: Prothrombin Time 10.9 SEC (10.0-13.1)
[2022-04-16 19:12] LABS: Amphetamine Screen Urine Not Detected (Not Detect); Barbiturates, Urine Not Detected (Not Detect); Benzodiazepines Screen Urine Not Detected (Not Detect); Cannabinoid Screen Urine POSITIVE (Not Detect); Cocaine Screen Urine Not Detected (Not Detect); Fentanyl, urine Not Detected (Not Detect); Opiate Screen Urine Not Detected (Not Detect); Phencyclidine Screen Urine Not Detected (Not Detect)
[2022-04-16 19:17] LABS: Alanine Aminotransferase 12 U/L (0-40); Albumin Level 4.4 g/dL (3.5-5.0); Alkaline Phosphatase 97 U/L (39-117); Anion Gap 15 (12-20); Aspartate Amino Transferase 25 U/L (5-37); Bilirubin Total 0.5 mg/dL (0.0-1.0); Blood Urea Nitrogen 8 mg/dL (9-16); Calcium 9.5 mg/dL (8.4-10.2); Carbon Dioxide 23 mmol/L (22-29); Chloride 105 mmol/L (96-108); Creatinine Clr Calc Pharmacy 72.7; Estimated Glomerular Filt Rate > 60; Glucose Random 98 mg/dL (60-115); Sodium 139 mmol/L (135-145); Total Protein 7.5 g/dL (6.5-8.0)
[2022-04-16] MEDS: iohexoL 350 MG/ML 75 ML INFUS..BTL 70 ML IV (19:29)
[2022-04-16 19:39] VITALS: BP 122/82; PULSE 69; RESP 16; TEMP 36.9; O2SAT 100
--- NOTE | 2022-04-16 22:32 | P.HPHOSP_ITS ---
History of Present Illness Date of Service: 04/16/22 Chief Complaint: Word finding difficulty 51-year-old male with no significant past medical history presented to the hospital with a chief complaint of difficulty finding words. Most of the history provided by the patient and patient's at bedside. Patient at the time of my interview is alert and awake, able to talk but has difficulty finding words and expressing words. Patient was able to answer in 1 word answers. Oriented x3. But has difficult time recalling the events and timing. Mentioned that his symptoms probably started around 13:00. Per patient's 5 patient was last well known with normal speech around 21:00 on 04/15/2022. This morning she woke up and she went to the work and has spoken to him in the evening when she came back from the work around 17:00 and noted that he has difficulty time answering her and of finding words and noted speech difficulty. Subsequently brought him to the hospital immediately for further evaluation chapito koo concerns for stroke. Patient denies any chest pain palpitations lightheadedness or dizziness. Denies any fever chills cough or sputum production. Denies any GI symptoms. Denies any focal numbness tingling or weakness. Patient mentioned that he smokes cigarettes. But denies any tobacco use. Denies any alcohol our illicit drug use. Review of all other systems is negative except mentioned above Per ER physician, patient noted to have grossly nonfocal examination but noted to have an dysarthria/expressive aphasia. CT head and CT angio head and neck were done which showed no acute intra cranial process are no acute large vessel occlusion. 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 Meds Allergies Allergy/AdvReac Type Severity Reaction Status Date / Time No Known Allergies Allergy Verified 10/18/20 14:29 Active Medications: Current Medications Acetaminophen (Acetaminophen 325 Mg Tablet) 650 mg PO Q6H PRN PRN Reason: Pain, Mild (Pain Scale 1-3) Aspirin (Aspirin Enteric Coated 81 Mg Tablet.Dr) 81 mg PO DAILY AUGUST Atorvastatin Calcium (Atorvastatin Calcium 80 Mg Tablet) 80 mg PO DAILY AUGUST Melatonin (Melatonin 3 Mg Tablet) 6 mg PO BEDTIME PRN PRN Reason: Insomnia Pharmacy Consult (Consult Rx Perform Med Rec) 1 each MISCELLANE ONCE PRN PRN Reason: Consult order Senna (Sennosides 8.6 Mg Tablet) 17.2 mg PO BEDTIME PRN PRN Reason: Constipation Physical Exam Vital Signs and Narrative: Vital Signs: Last Vital Signs Temp 98.5 F 04/16/22 19:39 Pulse 69 04/16/22 19:39 Resp 16 04/16/22 19:39 BP 122/82 04/16/22 19:39 Pulse Ox 100 04/16/22 19:39 O2 Del Method 04/16/22 19:39 BMI result Body Mass Index 20.3 Gen: Appears be in no acute distress HEENT: NCAT, Moist mucosa. Pulmonary: Vesicular breath sounds, fair air entry CVS: Normal S1-S2 Abdomen: BS+, Soft, Nontender Extremities: Warm well perfused Neuro: Alert and awake. Oriented x3; has dysarthria and word-finding difficulty-expressive aphasia. Sensations intact throughout and symmetrical. Strength 5/for eyes throughout. Tongue is midline. No able a deviation. No facial asymmetry noted. No pronator drift. Results Labs 04/16/22 18:48 04/16/22 18:48 Labs: Laboratory Results - last 24 hr 04/16/22 04/16/22 04/16/22 18:48 18:48 18:48 MCV 89.6 MCH 30.8 MCHC 34.4 RDW 13.4 Plt Count 306 MPV 8.3 L Immature Gran % (Auto) 0.3 Neut % (Auto) 68.2 Lymph % (Auto) 23.0 [place] % (Auto) 7.1 Eos % (Auto) 0.3 Baso % (Auto) 1.1 Lymph # (Auto) 2.6 [place] # (Auto) 0.8 Eos # (Auto) 0.0 Baso # (Auto) 0.1 Abs Immat Gran (auto) 0.03 Absolute Neuts (auto) 7.6 Absolute Nucleated RBC 0.000 Nucleated RBC % (auto) 0.0 PT 10.9 INR 1.0 Anion Gap 15 Estim Creat Clear Calc 72.7 Estimated GFR > 60 Random Glucose 98 Calcium 9.5 Total Bilirubin 0.5 AST 25 ALT 12 Alkaline Phosphatase 97 Total Protein 7.5 Albumin 4.4 Urine Opiates Screen Urine Fentanyl Screen Ur Barbiturates Screen Ur Phencyclidine Scrn Ur Amphetamines Screen U Benzodiazepines Scrn Urine Cocaine Screen U Marijuana (THC) Screen 04/16/22 18:52 MCV MCH MCHC RDW Plt Count MPV Immature Gran % (Auto) Neut % (Auto) Lymph % (Auto) [place] % (Auto) Eos % (Auto) Baso % (Auto) Lymph # (Auto) [place] # (Auto) Eos # (Auto) Baso # (Auto) Abs Immat Gran (auto) Absolute Neuts (auto) Absolute Nucleated RBC Nucleated RBC % (auto) PT INR Anion Gap Estim Creat Clear Calc Estimated GFR Random Glucose Calcium Total Bilirubin AST ALT Alkaline Phosphatase Total Protein Albumin Urine Opiates Screen Not Detected Urine Fentanyl Screen Not Detected Ur Barbiturates Screen Not Detected Ur Phencyclidine Scrn Not Detected Ur Amphetamines Screen Not Detected U Benzodiazepines Scrn Not Detected Urine Cocaine Screen Not Detected U Marijuana (THC) Screen POSITIVE H Imaging Radiologist's Impressions: Impressions Head CT 04/16/22 19:16 IMPRESSION: 1. No evidence of acute intracranial hemorrhage or edematous territorial infarction. 2. CTA of the head and neck without proximal occlusion or flow-limiting stenosis. 3. Extensive multifocal odontogenic disease. 4. Emphysema. Head/Neck CTA 04/16/22 19:40 IMPRESSION: 1. No evidence of acute intracranial hemorrhage or edematous territorial infarction. 2. CTA of the head and neck without proximal occlusion or flow-limiting stenosis. 3. Extensive multifocal odontogenic disease. 4. Emphysema. Assessment and Plan (1) Dysarthria: Status: Acute (2) Aphasia: Status: Acute (3) Stroke: Status: Acute Plan 51-year-old male with no significant past medical history presented to the hospital with a chief complaint of difficulty finding words. Noted to have dysarthria/expressive aphasia. Admitted to the hospital for further management. Dysarthria/expressive aphasia: Patient last well known per patient's was 21:00 on 04/15/2022. Patient also reports that his symptoms might have started around 13:00 today. ER physician felt patient is out of window for tPA. Received aspirin in the ER. CT head and CT angio head and neck showed no acute finding. -neuro checks -PT/OT/speech and swallow eval -MRI brain -echocardiogram -neurology consult -continue aspirin/statin -will check hemoglobin A1c, TSH, lipid profile History of cannabis use: Counseled to avoid cannabis use. DVT prophylaxis: SCD boots Code status: Telephone Ad Taker Spent With Patient Time: Total time managing care of this patient today ____ minutes. Quality Stroke Does the patient have a stroke diagnosis?: No VTE Prior VTE?: No VTE Risk Level:: Medical - moderate - high VTE Device Contraindication: Treatment Not Indicated VTE Drug Contraindication: N/A - Med Ordered
[2022-04-16 23:09] LABS: COVID-19 Test Negative (Negative); IDNOW Serial# 6674DD1D
[2022-04-16 23:21] LABS: Anion Gap 12 (12-20); Blood Urea Nitrogen 8 mg/dL (9-16); Calcium 9.2 mg/dL (8.4-10.2); Carbon Dioxide 26 mmol/L (22-29); Chloride 106 mmol/L (96-108); Creatinine Clr Calc Pharmacy 69.2; Estimated Glomerular Filt Rate > 60; Glucose Random 90 mg/dL (60-115); Potassium 4.8 mmol/L (3.3-5.1); Sodium 139 mmol/L (135-145)
[2022-04-16 23:30] LABS: Troponin-I High Sensitivity < 3.5 ng/L (<3.5-35.0)
[2022-04-17] VITALS: BP 136/83; PULSE 63; RESP 20; TEMP 37.9; O2SAT 99
[2022-04-17] MEDS: Aspirin Enteric Coated 81 MG TABLET.DR PO ×2 (00:53→07:53)
[2022-04-17] MEDS: Atorvastatin Calcium 80 MG TABLET PO ×2 (00:54→07:53)
[2022-04-17 01:29] VITALS: BMI 19.4
[2022-04-17 01:58] LABS: Troponin-I High Sensitivity < 3.5 ng/L (<3.5-35.0)
[2022-04-17 04:00] VITALS: BP 134/83; PULSE 88; RESP 20; TEMP 37.8; O2SAT 99
--- NOTE | 2022-04-17 05:00 | PC.NURSE ---
pt's temp 100.2 ,[address] alvarez.no other symptoms reported by patient.neuros stable except remains with expressive aphasia.no new orders per md.
[2022-04-17] MEDS: Acetaminophen 325 MG TABLET 650 MG PO (06:35)
[2022-04-17 06:48] LABS: MANUAL DIFF FLAG NO
[2022-04-17 06:55] LABS: Basophils Absolute Auto 0.1 X10*3/uL (0.0-0.2); Basophils Percent Auto 1.2 % (0-2); Eosinophils Absolute Auto 0.2 X10*3/uL (0.0-0.4); Eosinophils Percent Auto 2.1 % (0-4); Hematocrit 41.7 % (42.0-52.0); Imm Gran Abs Auto 0.02 X10*3/uL (0.00-0.03); Imm Gran Pct Auto 0.2 % (0.0-0.4); Lymphocytes Absolute Auto 2.5 X10*3/uL (1.2-4.9); Lymphocytes Percent Auto 27.3 % (20-40); Mean Corpuscular HGB Conc 33.6 g/dl (31.0-36.0); Mean Corpuscular Hemoglobin 29.9 pg (27.0-33.0); Mean Corpuscular Volume 89.1 fL (80.0-98.0); Mean Platelet Volume 8.1 fL (9.4-12.4); Monocytes Percent Auto 10.9 % (2-11); Neutrophils Absolute Auto 5.2 x10*3/uL (2.0-8.3); Neutrophils Percent Auto 58.3 % (45-73); Platelet Count 289 X10*3/uL (160-400); Red Blood Count 4.68 X10*6/uL (4.60-5.80); Red Cell Distribution Width 13.7 % (11.0-16.0)
--- NOTE | 2022-04-17 07:00 | CA_ITS ---
Transthoracic Echocardiogram Patient (Last, First, Middle): Saleem Grossman, Gender: Male Date of : 1970 Age: 51 Procedure Date: 04/17/2022 Procedure Type: Transthoracic Echocardiogram [place] [facility] [place]: 170.18 cm Weight: 56.25 kg BSA: 1.65 m2 Heart Rate: bpm BP: 105 / 65 mmHg Conservation Or Heritage Architect: Referring MD: Jason Nava MD Symptoms: bubbl study; CVA Study Quality: Good ECG Rhythm: Sinus Conclusions: - The left ventricular systolic function is normal. The calculated ejection fraction is 64% by biplane method. - There is no evidence of interatrial shunt by agitated saline. - No obvious valvular pathology seen on this study. Findings Left Ventricle Normal left ventricular cavity size. There is mildly increased left ventricular wall thickness. The left ventricular systolic function is normal. The calculated ejection fraction is 64% by biplane method. There is no evidence of regional wall motion abnormalities. Diastolic function is normal for age. LV peak GLS -18%. Right Ventricle Normal right ventricular cavity size and systolic function. Atria Both atria are normal in size. There is no evidence of interatrial shunt by agitated saline. Performed during rest and valsalva. Aortic Valve There is a normal trileaflet aortic valve. There is no aortic valve stenosis. There is no aortic valve regurgitation. Mitral Valve There is mild anterior mitral leaflet thickening. There is trace mitral valve regurgitation. There is no mitral valve stenosis. Pulmonic Valve The pulmonic valve is likely normal. Tricuspid Valve Normal tricuspid valve structure. There is trace tricuspid valve regurgitation. There is no evidence of pulmonary hypertension. Great Vessels The asc aorta is normal in size. Venous The inferior vena cava is normal in size and collapses greater than 50% with inspiration. Pericardium/Pleural There is no evidence of pericardial effusion. Prior Study Comparison No prior study available for comparison. Recommendations, Care & Conclusions No obvious valvular pathology seen on this study. Measurements 2D Linear Measurements IVSd: 1.02 0.6-0.9/0.6-1.0 cm LVIDd: 2.93 3.9-5.3/4.2-5.9 cm LVIDd Index: 1.78 2.4-3.2/2.2-3.1 cm/m2 LVIDs: 1.99 2.0-3.6 cm LVPWd: 1.12 0.7-1.1 cm Ao Root: 3.30 2.1-3.5 cm LA Diam: 2.70 2.7-3.8/3.0-4.0 cm LAIDs Index: 1.64 1.5-2.3 cm/m2 LV Mass: 109.38 67-162/88-224 g LV Mass Index: 66.29 43-95/49-115 g/m2 LVOT Diam: 2.00 3.0+(-)1.3 cm 2D Systolic Function EF 4C: 62.80 >55% EF 2C: 68.00 >55% EF BiP: 64.00 >55% Mitral Valve MV Pk E: 0.75 MV PK A: 0.51 MV Decel Time: 205.00 E/A: 1.50 E'Lateral: 14.50 E'Medial: 12.90 E/E' Med: 5.80 E/E' Lat: 5.10 PHT: 60.00 MVA PHT: 3.67 Decel Morrill: 3.63 Aortic Valve AoV Pk Venkatesh: 1.28 AoV Mn Venkatesh: 0.75 AoV VTI: 0.31 AoV Pk Grad: 7.00 Aov Mn Grad: 3.00 RAHEEM Cont.VTI: 1.71 LVOT LVOT Pk Venkatesh: 0.81 LVOT Mn Venkatesh: 0.51 LVOT VTI: 0.17 LVOT Pk Grad: 3.00 LVOT Mn Grad: 1.00 LVOT Diam: 2.00 LVOT Area: 3.14 Diastolic Function MV Pk E: 0.75 MV Pk A: 0.51 E/A: 1.50 E'Medial: 12.90 E/E' Med: 5.80 E' Laterial: 14.50 E/E' Lat: 5.10 Right Ventricle TAPSE (mm): 23.00 TVS' Venkatesh: 12.00 Tricuspid Valve TR Pk Venkatesh: 2.14 TR Pk Grad: 18.00 Great Vessels Aorta Ao Root-2D: 3.30 2.0-3.7 cm Ao Asc: 3.00 2.1-3.4 cm Pulmonary Valve PV Pk Venkatesh: 0.75 Peak PV Grad: 2.00 Updated in Other Vendor System with Status of Final Jorge Raymundo MD electronically signed on 04/17/2022 12:30:30 PM with status of Final
[2022-04-17 07:03] VITALS: BP 105/65; PULSE 69; RESP 17; TEMP 36.7; O2SAT 99
[2022-04-17 07:09] LABS: Cholesterol 185 mg/dL; HDL Cholesterol 34 mg/dL; LDL Cholesterol Calculated 134 mg/dl; Triglycerides 89 mg/dL
--- NOTE | 2022-04-17 09:37 | MHC.CM.PN ---
Patient is here with Aphasia and experiencing s/s of word finding difficulty; CM spoke with /Estella at listed cell #. Patient lives in a house with hisi and 2 Children (one of college age and other 16 years of age) and he was functionally independent and working [employer]. Patient had a recent insurance change and is aware of the need/importance of establishing care with a new PCP fredi. Home/? with outpatient [facility] is the tentative plan and CM has initiated and will follow for dc planning. Patient has received 4 Covid vax.
--- NOTE | 2022-04-17 09:56 | MHC.STROKE ---
Addendum entered by Geena Grover RN 04/18/22 16:56: At 1638 patient discharge from [facility]. I accompanied patient and his to the patient registration area and the Holter monitor order was not in the system, therefore the patient decided not to wait. I spoke with the quality assurance test program manager and he said to give the the phone number [phone] to the patient and and they can call in the morning and speak with someone for assistance. I will also follow up regarding this order in the morning. Addendum entered by Geena Grover RN 04/18/22 14:04: I have been assisting with communicating the stroke discharge recommendations to the team (Parts Processor, RN, Hospitalist, Neurologist, Cardiology). I have met with the patient and the multiple times to update them. Dr. Epperson and I spoke and he is recommending a 30-day Holter monitor and we are coordinating cardiology department and dietitian teacher to assist because the patient's PCP retired and case management arranged for a post-discharge appointment on 04/29/22. We are in the process of getting the order and a consult for cardiology to assist with this. The hospitalist did put in an order for Speech Therapy multiple times per week and I did speech with speech therapy and they can accommodate this patient and they understand he has a PCP appoint on 04/29/22. Addendum entered by Geena Grover RN 04/18/22 10:58: I met with the patient and his and discussed his ischemic stroke diagnosis. I reviewed all of his individual arnol factors, family history, excess coffee drinking 13-15 cups a day. We reviewed all of his test results, I gave them a screenshot of the MRI and location of the stroke and correlating symptoms. I reviewed the plan of care, Holter monitor and why, Hypercoag lab work and why. I reviewed the stroke education booklet, powerpoint slides and answered all of their questions. They are most concerned that he does not have a PCP and they are not comfortable being discharged without one. I conferred with speech therapy Yuliet and his plan of care. I did relay all this information to Dr. Garrett and Case Management. Original Note: Walk-in 1823, c/o aphasia, LKW 0600m discovered symptoms at 1730. See provider note. CT/CTA H/N No bleed, No LVO.00:45 Verified that patient passed nursing swallow prior to po medication, regular diet ordered. Neurology consult and MRI pending. I will continue to follow, ? if patient will need echo with bubble.
--- NOTE | 2022-04-17 10:54 | P.CNNE_ITS ---
History of Present Illness Data of Consult Service Date: 04/17/22 Primary Care Provider: Unknown Physician HPI Reason for consult: acute onset of Dysphasia 51-year-old male with no significant past medical history presented to the hospital with a chief complaint of difficulty finding words.?Patient was able to answer in 1 word answers.? Oriented x3.? But has difficult time recalling the events and timing.? Mentioned that his symptoms probably started around 14:00 on 04/16/2022. woke up and she went to the work and has spoken to him in the evening when she came back from the work around 17:30 and noted that he has difficulty time answering her and of finding words and noted speech difficulty.No previous history of stroke or TIA. He does not smoke cigarettes. He smokes marijuana regularly. No family history of stroke or heart disease? Review of Systems Review of Systems: Constitutional : No Weight loss, No Fever, No Chills, No Night Sweats, No Fatigue, No Malaise ENT/Mouth : No Hearing loss, No Ear Pain, No Nasal Congestion, No Sinus Pain, No Hoarseness, No sore throat, No Rhinorrhea, No Swallowing Difficulty Eyes: No Eye Pain, No Swelling, No Redness, No Foreign Body, No Discharge, No Vision Changes Cardiovascular : No Chest Pain, No SOB, No Dyspnea on Exertion, No Orthopnea, No Edema, No Palpitations Respiratory : No Cough, No Sputum, No Wheezing, No Smoke Exposure, No Dyspnea Gastrointestinal : No Nausea, No Vomiting, No Diarrhea, No Constipation, No abdominal Pain, No Hematochezia, No Melena Genitourinary : no irregular bleeding, No Dysuria, No Urinary Frequency, No Hematuria, No Urinary Incontinence, No Urgency, No Flank Pain, No Urinary Flow Changes, No Hesitancy Musculoskeletal : No joint pain, No Myalgias, No Joint Swelling Skin : No Skin Lesions, No rash Neuro : Difficulty finding words, difficulty expressing words. No Weakness, No Numbness, No Paresthesias, No Loss of Consciousness, No Dizziness, No Headache Psych : No Anxiety/Panic, No Depression, No SI/HI/AH/VH, No Social Issues, Heme/Lymph: No Bruising, No Bleeding,No Lymphadenopathy Endocrine : No Polyuria, No Polydipsia, No Temperature Intolerance [facility] Social History Social History (Updated 10/18/20 @ 14:30 by Can Damian) Household Members: Spouse Housing: House Do you presently have visiting nurse or other home services: No Patient Tobacco Use Status: Never used Tobacco Use of substances other than those prescribed or required for medical reasons: No Currently Displaying Signs/Symptoms of Drug Intoxication Withdrawal: No Have you been hit, kicked, punched, or otherwise hurt by someone within the past year? 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 Meds Allergies Allergy/AdvReac Type Severity Reaction Status Date / Time No Known Allergies Allergy Verified 10/18/20 14:29 Active Medications: Current Medications Acetaminophen (Acetaminophen 325 Mg Tablet) 650 mg PO Q6H PRN PRN Reason: Pain, Mild (Pain Scale 1-3) Last Admin: 04/17/22 06:35 Dose: 650 mg Aspirin (Aspirin Enteric Coated 81 Mg Tablet.) 81 mg PO DAILY [facility] Last Admin: 04/17/22 07:53 Dose: 81 mg Atorvastatin Calcium (Atorvastatin Calcium 80 Mg Tablet) 80 mg PO DAILY [facility] Last Admin: 04/17/22 07:53 Dose: 80 mg Melatonin (Melatonin 3 Mg Tablet) 6 mg PO BEDTIME PRN PRN Reason: Insomnia Pharmacy Consult (Consult Rx Perform Med Rec) 1 each MISCELLANE ONCE PRN PRN Reason: Consult order Senna (Sennosides 8.6 Mg Tablet) 17.2 mg PO BEDTIME PRN PRN Reason: Constipation Home Medications Medication Instructions Recorded Confirmed Last Taken Type No Known Home Meds 04/16/22 04/16/22 Unknown History Physical Exam Vital Signs: Vital Signs: Last Vital Signs Temp 98.1 F 04/17/22 07:03 Pulse 69 04/17/22 07:03 Resp 17 04/17/22 07:03 BP 105/65 04/17/22 07:03 Pulse Ox 99 04/17/22 07:03 O2 Del Method 04/17/22 07:03 BMI result Body Mass Index 19.4 Const: Other: Constitutional : Awake, interactive, not in distress Neck : Normal inspection, Supple Cardiovascular : RRR, no JVP, no lower extremity edema Respiratory : good bilateral air entry, no crackles, wheezes or rhonchi Gastrointestinal: soft, lax, Normal bowel sounds, Non tender Skin : Warm, Dry Neurological : Alert & oriented x3, No focal deficit , CN 2-12 within normal, problems in expressive, receptive languages and memory Neuro: Other: Rare word finding hesitancy. Speech is fluent. Nonfocal examinatiion with no facial droop. Slight weakness of right shoulder abduction which she says is because of her shoulder problem. Results Labs 04/17/22 06:40 04/16/22 22:57 Labs: Short CBC 04/16/22 04/17/22 Range/Units 18:48 06:40 WBC 11.1 H 9.0 (4.8-10.8) X10*3/uL Hgb 14.9 14.0 (14.0-18.0) g/dl Hct 43.3 41.7 L (42.0-52.0) % Plt Count 306 289 (160-400) X10*3/uL BMP 04/16/22 04/16/22 18:48 22:57 Sodium 139 139 Potassium 4.0 4.8 Chloride 105 106 Carbon Dioxide 23 26 BUN 8 L 8 L Creatinine 0.99 1.04 Calcium 9.5 9.2 Liver Function 04/16/22 Range/Units 18:48 Total Bilirubin 0.5 (0.0-1.0) mg/dL AST 25 (5-37) U/L ALT 12 (0-40) U/L Alkaline Phosphatase 97 (39-117) U/L Albumin 4.4 (3.5-5.0) g/dL Assessment and Plan (1) Dysarthria: Status: Acute (2) Aphasia: Status: Acute Acute stroke in the left middle cerebral territory probably embolic in origin. CT of the head and neck are negative. The patient was outside of the TPA window. No intervention because there was no vascular occlusiion noted. Recommendations: Aspirin 81 mg a day clopidogrel 75 mg a day. Echocardiogram with bubble study. 30 day cardiac event monitor for atrial fibrillation Plan 51-year-old male with no significant past medical history presented to the hospital with a chief complaint of difficulty finding words. Noted to have dysarthria/expressive aphasia. Admitted to the hospital for further management. Dysarthria/expressive aphasia: Patient last well known per patient's was 21:00 on 04/15/2022. Patient also reports that his symptoms might have started around 13:00 today. ER physician felt patient is out of window for tPA. Received aspirin in the ER. CT head and CT angio head and neck showed no acute finding. -neuro checks -PT/OT/speech and swallow eval -MRI brain -echocardiogram -neurology consult -continue aspirin/statin -will check hemoglobin A1c, TSH, lipid profile History of cannabis use: Counseled to avoid cannabis use. DVT prophylaxis: SCD boots Code status: Banking Center Manager Spent With Patient Time: Total time managing care of this patient today ____ minutes. Procedures Date of Service Date of Service: 04/17/22
[2022-04-17 11:28] VITALS: BP 115/82; PULSE 75; RESP 17; TEMP 36.7; O2SAT 99
--- NOTE | 2022-04-17 12:06 | MHC.SP.ADU ---
Addendum entered and electronically signed by Sujey Dockery MA, CCC-ORDER DESK CALLER 04/17/22 13:12: D.S. Original Note: Referring provider: MD Brandy Reason for Referral: lang/celina evdodie Type of Treatment: 93309 Evaluation Speech Sound Production WITH Language Date of Plan of Treatment: 04/17/22 Onset of Symptoms/Illness: 04/16/22 Date Treatment Started: 04/17/22 Medical Diagnosis: Dysarthria, Aphasia Primary Speech Language Diagnosis: R47.01 Aphasia History Patient is a 51 year old male who reported to ED on 04/16 d/t altered mental status and difficulty with expressive language. CT head and CT angio head and neck were done which showed no acute intra cranial process are no acute large vessel occlusion. MRI to be done. Patient's reports that his expressive language has improved since last night. 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 Patient presents w/ difficulty in expressive language, receptive language, and memory. Difficulty in expressive language characterized by difficulty in word finding, expressing complex thoughts, use of only filler words at times (I mean, well, you know). Difficulty in receptive language characterized by difficulty understanding complex directions. Difficulty in memory characterized by inability to repeat 2 to 3 digits back in reverse order. Patient does not present with dysarthric speech. Notably, patient not able to accurately complete clock drawing task. Patient performed with 100% accuracy on the following test items: responsive naming (i.e. what do you write with?), word and sentence repetition, Y/N auditory comprehension questions, sentence completion (i.e. the grass is ___), word recognition (i.e. point to the TV), automatic sequences and speech (days of the week, months of year, address). Patient followed 1-2 step commands with minimal difficulty, however when asked to wiggle your fingers, patient observed to wiggle both toes and fingers. Patient observed to use resources in room to answer questions. For example, when asked, What month is it? patient responded 3. Patient prompted to provide month name, unable to do so until prompted to recite months starting with February. When asked his age, patient initially reported 22 before laughing and changing his response to 52. When his responded his answer was not correct, patient responded with only filler words and gestures (well... I mean... you know...) to indicate that he would be turning 52 in a few months. When asked, what season comes before spring? the patient answered fall. In clock drawing task, patient accurately displayed numbers on the clock, when asked to set the clock to ten minutes after eleven he adolfo one hand of the clock to the 12 and stated I can't. With moderate prompting, patient wrote 11:10 to indicate understanding of what time the clock should be set to. When prompted to set the clock to 11:10, he again stated I can't. When prompted to set clock to 1:00, the patient adolfo hands to both 12 and 1 of the same length. When asked which hand is longer, he reported I don't know. Patient was left with a [employer] communication board with symbols and keyboard. Patient demonstrated understanding of various icons and the ability to spell words using keyboard on communication board. Patient left with dry erase marker for communication needs if needed. Informal Voice Assessment: Voice Loudness: Normal Voice Nasal Resonance: Normal Voice Oral Resonance: Normal Voice Phonatory-based Quality: Normal Voice Pitch: Normal Voice Other Observations: Clinical Impression: Intact Clinicial Observations: Impressions and Recommendations Summary: Impact on Daily Function/Activity Limitations: Daily Activities: Interpersonal Interactions: Education: Employment: Community: Prognosis for Improvement: Comment: Recommendation for Speech Therapy: Further Testing Needed Recommend patient be seen by ORDER DESK CALLER during hospitalization. If difficulty with language and cognition persist following discharge, recommend further evaluation by ORDER DESK CALLER. Recommended Referrals to be Discussed with Primary Care Provider: Neurology Patient Education: Completed: Yes Patient/Caregiver Education: Described Results of Evaluation Patient expressed understanding of evaluation Family/Caregivers expressed understanding of results Comments/Barriers to Learning: Enlisted Aircrew/Aerial Observer/Gunner Clinican/Clinical Fellow: Yes: Geena Degroot M.A., CF-ORDER DESK CALLER Supervisory Statement: Speech Language Pathologist:
--- NOTE | 2022-04-17 12:27 | P.PNIM_ITS ---
Subjective Subjective Date of Service: 04/17/22 Interval History: Seen and evaluated this morning more expressive but still having problems in expressive, receptive languages and memory no reported overnight events Review of Systems No fever, chills or weakness No chest pain, palpitation No shortness of breath or coughing No abdominal pain, nausea or vomiting No urinary symptoms No any rash or wounds Physical Exam Vital Signs: Vital Signs: Last Vital Signs Temp 98.0 F 04/17/22 11:28 Pulse 75 04/17/22 11:28 Resp 17 04/17/22 11:28 BP 115/82 04/17/22 11:28 Pulse Ox 99 04/17/22 11:28 O2 Del Method 04/17/22 11:28 BMI result Body Mass Index 19.4 Const: Other: Constitutional : Awake, interactive, not in distress Neck : Normal inspection, Supple Cardiovascular : RRR, no JVP, no lower extremity edema Respiratory : good bilateral air entry, no crackles, wheezes or rhonchi Gastrointestinal: soft, lax, Normal bowel sounds, Non tender Skin : Warm, Dry Neurological : Alert & oriented x3, No focal deficit , CN 2-12 within normal, problems in expressive, receptive languages and memory Objective Data Active Medications Acetaminophen (Acetaminophen 325 Mg Tablet) 650 mg PO Q6H PRN PRN Reason: Pain, Mild (Pain Scale 1-3) Last Admin: 04/17/22 06:35 Dose: 650 mg Documented By: ELISABETH Aspirin (Aspirin Enteric Coated 81 Mg Tablet.) 81 mg PO DAILY [facility] Last Admin: 04/17/22 07:53 Dose: 81 mg Documented By: ELIZABETH Atorvastatin Calcium (Atorvastatin Calcium 80 Mg Tablet) 80 mg PO DAILY [facility] Last Admin: 04/17/22 07:53 Dose: 80 mg Documented By: ELIZABETH Melatonin (Melatonin 3 Mg Tablet) 6 mg PO BEDTIME PRN PRN Reason: Insomnia Pharmacy Consult (Consult Rx Perform Med Rec) 1 each MISCELLANE ONCE PRN PRN Reason: Consult order Senna (Sennosides 8.6 Mg Tablet) 17.2 mg PO BEDTIME PRN PRN Reason: Constipation Labs 04/17/22 06:40 04/16/22 22:57 Labs: Laboratory Results - last 24 hr 04/16/22 04/16/22 04/16/22 18:48 18:48 18:48 MCV 89.6 MCH 30.8 MCHC 34.4 RDW 13.4 Plt Count 306 MPV 8.3 L Immature Gran % (Auto) 0.3 Neut % (Auto) 68.2 Lymph % (Auto) 23.0 [place] % (Auto) 7.1 Eos % (Auto) 0.3 Baso % (Auto) 1.1 Lymph # (Auto) 2.6 [place] # (Auto) 0.8 Eos # (Auto) 0.0 Baso # (Auto) 0.1 Abs Immat Gran (auto) 0.03 Absolute Neuts (auto) 7.6 Absolute Nucleated RBC 0.000 Nucleated RBC % (auto) 0.0 PT 10.9 INR 1.0 Anion Gap 15 Estim Creat Clear Calc 72.7 Estimated GFR > 60 Random Glucose 98 Calcium 9.5 Total Bilirubin 0.5 AST 25 ALT 12 Alkaline Phosphatase 97 Troponin I High Sens Total Protein 7.5 Albumin 4.4 Triglycerides Cholesterol LDL Cholesterol, Calc HDL Cholesterol Urine Opiates Screen Urine Fentanyl Screen Ur Barbiturates Screen Ur Phencyclidine Scrn Ur Amphetamines Screen U Benzodiazepines Scrn Urine Cocaine Screen U Marijuana (THC) Screen COVID-19 ([facility]) COVID-Lumafit 04/16/22 04/16/22 04/16/22 18:52 22:43 22:57 MCV MCH MCHC RDW Plt Count MPV Immature Gran % (Auto) Neut % (Auto) Lymph % (Auto) [place] % (Auto) Eos % (Auto) Baso % (Auto) Lymph # (Auto) [place] # (Auto) Eos # (Auto) Baso # (Auto) Abs Immat Gran (auto) Absolute Neuts (auto) Absolute Nucleated RBC Nucleated RBC % (auto) PT INR Anion Gap 12 Estim Creat Clear Calc 69.2 Estimated GFR > 60 Random Glucose 90 Calcium 9.2 Total Bilirubin AST ALT Alkaline Phosphatase Troponin I High Sens Total Protein Albumin Triglycerides Cholesterol LDL Cholesterol, Calc HDL Cholesterol Urine Opiates Screen Not Detected Urine Fentanyl Screen Not Detected Ur Barbiturates Screen Not Detected Ur Phencyclidine Scrn Not Detected Ur Amphetamines Screen Not Detected U Benzodiazepines Scrn Not Detected Urine Cocaine Screen Not Detected U Marijuana (THC) Screen POSITIVE H COVID-19 ([place]) Negative COVID-19 [facility] Com See Note 04/16/22 04/17/22 04/17/22 22:57 01:01 06:40 MCV 89.1 MCH 29.9 MCHC 33.6 RDW 13.7 Plt Count 289 MPV 8.1 L Immature Gran % (Auto) 0.2 Neut % (Auto) 58.3 Lymph % (Auto) 27.3 [place] % (Auto) 10.9 Eos % (Auto) 2.1 Baso % (Auto) 1.2 Lymph # (Auto) 2.5 [place] # (Auto) 1.0 Eos # (Auto) 0.2 Baso # (Auto) 0.1 Abs Immat Gran (auto) 0.02 Absolute Neuts (auto) 5.2 Absolute Nucleated RBC 0.000 Nucleated RBC % (auto) 0.0 PT INR Anion Gap Estim Creat Clear Calc Estimated GFR Random Glucose Calcium Total Bilirubin AST ALT Alkaline Phosphatase Troponin I High Sens < 3.5 < 3.5 Total Protein Albumin Triglycerides Cholesterol LDL Cholesterol, Calc HDL Cholesterol Urine Opiates Screen Urine Fentanyl Screen Ur Barbiturates Screen Ur Phencyclidine Scrn Ur Amphetamines Screen U Benzodiazepines Scrn Urine Cocaine Screen U Marijuana (THC) Screen COVID-19 ([place]) COVID-19 Clin Com 04/17/22 06:40 MCV MCH MCHC RDW Plt Count MPV Immature Gran % (Auto) Neut % (Auto) Lymph % (Auto) [place] % (Auto) Eos % (Auto) Baso % (Auto) Lymph # (Auto) [place] # (Auto) Eos # (Auto) Baso # (Auto) Abs Immat Gran (auto) Absolute Neuts (auto) Absolute Nucleated RBC Nucleated RBC % (auto) PT INR Anion Gap Estim Creat Clear Calc Estimated GFR Random Glucose Calcium Total Bilirubin AST ALT Alkaline Phosphatase Troponin I High Sens Total Protein Albumin Triglycerides 89 Cholesterol 185 LDL Cholesterol, Calc 134 HDL Cholesterol 34 Urine Opiates Screen Urine Fentanyl Screen Ur Barbiturates Screen Ur Phencyclidine Scrn Ur Amphetamines Screen U Benzodiazepines Scrn Urine Cocaine Screen U Marijuana (THC) Screen COVID-19 ([facility]) COVID-19 Clin Com Assessment and Plan (1) Aphasia: Status: Acute Plan 51-year-old male with no significant past medical history presented to [facility] with a chief complaint of difficulty finding words. Noted to have dysarthria/expressive aphasia. Admitted to the hospital for further management. Aphasia, Expressive out of window for tPA CT head and CT angio head and neck showed no acute finding. Pending MRI neuro checks PT/OT speech team to follow pending echocardiogram pending neurology consult continue aspirin/statin History of cannabis use: Counseled to avoid cannabis use. DVT prophylaxis: SCD boots Code status: Community Advocate Spent With Patient Time: Total time managing care of this patient today ____ minutes. Quality Stroke Does the patient have a stroke diagnosis?: No VTE Prior VTE?: No VTE Risk Level:: Medical - moderate - high VTE Device Contraindication: Treatment Not Indicated VTE Drug Contraindication: N/A - Med Ordered
[2022-04-17] MEDS: Enoxaparin Sodium 40 MG/0.4 ML SYRINGE SUBCUT (13:51)
[2022-04-17 15:01] VITALS: BMI 19.4
[2022-04-17 15:42] VITALS: BP 132/68; PULSE 57; RESP 14; TEMP 37.2; O2SAT 99
[2022-04-17 19:24] VITALS: BP 120/83; PULSE 63; RESP 14; TEMP 37; O2SAT 98
[2022-04-18] VITALS: BP 133/75; PULSE 60; RESP 20; TEMP 36.9; O2SAT 99
[2022-04-18 03:54] VITALS: BP 134/65; PULSE 57; RESP 20; TEMP 37; O2SAT 98
[2022-04-18 07:11] VITALS: BP 127/74; PULSE 60; RESP 18; TEMP 37.2; O2SAT 100
[2022-04-18] MEDS: Clopidogrel Bisulfate 75 MG TABLET PO (09:22)
[2022-04-18] MEDS: Aspirin Enteric Coated 81 MG TABLET.DR PO (09:22)
[2022-04-18] MEDS: Atorvastatin Calcium 80 MG TABLET PO (09:22)
[2022-04-18 10:13] LABS: Prothrombin Time 11.8 SEC (10.0-13.1)
[2022-04-18 10:16] LABS: Partial Thromboplastin Time 29.7 SEC (26.0-36.4)
--- NOTE | 2022-04-18 11:02 | MHC.CM.PN ---
Per MD's request in ROUNDS, CM met with Patient and his at bedside to present to them a PCP Pamphlet in order to assist Patient to obtain a PCP. Patient's expressed her disbelief that CM was unable to tell her which Doctors are accepting new Patients and requested to speak with CM Administration. CM has relayed this request and CM/Director/Kelly will be meeting with Patient and his shortly. CM will follow further as needed.
--- NOTE | 2022-04-18 11:15 | MHC.CLN ---
F/U SUPPLEMENT CHANGED TO ENSURE BID. PROVIDES ADDITIONAL 700 KCALS, 40 G PROTEIN.
[2022-04-18 11:18] VITALS: BP 120/82; PULSE 69; RESP 18; TEMP 36.9; O2SAT 100
--- NOTE | 2022-04-18 11:36 | MHC.CM.PN ---
Patient has been medically cleared for dc to home today, self care.
--- NOTE | 2022-04-18 11:37 | PM.DS ---
DS: Providers Provider Date of Service: 04/18/22 Date of admission: 04/16/22 22:27 Primary care physician: Unknown Physician Consults: 04/16/22 22:26 Consult to Neurology Routine Consulting Provider: Liss Mackenzie Reason for consultation: Exp aphasia DS: Diagnosis Discharge Diagnosis (1) Dysarthria: Status: Acute (2) Aphasia: Status: Acute (3) Stroke: Status: Acute DS: Summary Hospital Course Hospital Course: Admission note HPI 51-year-old male with no significant past medical history presented to the hospital with a chief complaint of difficulty finding words.? Most of the history provided by the patient and patient's at bedside.? Patient at the time of my interview is alert and awake, able to talk but has difficulty finding words and expressing words.? Patient was able to answer in 1 word answers.? Oriented x3.? But has difficult time recalling the events and timing.? Mentioned that his symptoms probably started around 13:00.? Per patient's 5 patient was last well known with normal speech around 21:00 on 04/15/2022. This morning she woke up and she went to the work and has spoken to him in the evening when she came back from the work around 17:00 and noted that he has difficulty time answering her and of finding words and noted speech difficulty.? Subsequently brought him to the hospital immediately for further evaluation given concerns for stroke.? Patient denies any chest pain palpitations lightheadedness or dizziness.?Denies any fever chills cough or sputum production.?Denies any GI symptoms.?Denies any focal numbness tingling or weakness.? Patient mentioned that he smokes cigarettes.? But denies any tobacco use.? Denies any alcohol our illicit drug use.? Per ER physician, patient noted to have grossly nonfocal examination but noted to have an dysarthria/expressive aphasia.? CT head and CT angio head and neck were done which showed no acute intra cranial process are no acute large vessel occlusion. Hospital course The patient was admitted to the hospital for evaluation of speech problem. Diagnosed as expressive aphasia as he was evaluated with brain images of CT angiogram of head and neck showing no acute stenosis or evidence of bleeding or stroke. MRI was done showing evidence of left MCA territory stroke with concern over possible embolic origin. Echocardiogram was done with bubble study showing no evidence of connection between left and right side of the heart. CTA showed no car the disease. Monitored on telemetry with no evidence of irregular rhythm. Evaluated by speech therapy who recommended outpatient follow-up. PT and OT recommended no therapy needed at this stage for the patient. Started on dual antiplatelet therapy of aspirin and Plavix with addition of atorvastatin at bedtime. Patient will need multiple sessions of speech therapy on weekly basis for best possible outcome. Start baby aspirin daily Start clopidogrel (Plavix) daily Start atorvastatin 80 mg at bedtime To follow-up with Cardiology as outpatient for Holter monitoring device within the next 2 weeks To follow-up with speech therapy as outpatient You will need a primary care to follow on pending blood work and to arrange the care for you in the future Time Spent with Patient Time attestation: Total time managing care of this patient today ____ minutes. Discharge coordination time: Greater than 30 minutes Quality: Safe Use of Opioids Does Pt have an Active Cancer Diagnosis on the Problem List?: No Quality: Stroke Does the patient have a stroke diagnosis?: Yes Reason for No Anti-thrombotic at DC: N/A - Med Ordered Reason for No Anticoagulant at DC: N/A - Med Ordered Reason Not Initiating IV-Tpa: N/A - Med Ordered Reason for No Anti-thrombotic by Day Two: N/A - Med Ordered Reason for No Statin at DC: N/A - Med Ordered Physical Exam Vital Signs: Vital Signs: Last Vital Signs Temp 98.5 F 04/18/22 11:18 Pulse 69 04/18/22 11:18 Resp 18 04/18/22 11:18 BP 120/82 04/18/22 11:18 Pulse Ox 100 04/18/22 11:18 O2 Del Method 04/18/22 11:18 BMI result Body Mass Index 19.4 Const: Other: Constitutional : Awake, interactive, not in distress Neck : Normal inspection, Supple Cardiovascular : RRR, no JVP, no lower extremity edema Respiratory : good bilateral air entry, no crackles, wheezes or rhonchi Gastrointestinal: soft, lax, Normal bowel sounds, Non tender Skin : Warm, Dry Neurological : Alert & oriented x3, No focal deficit , CN 2-12 within normal, problems in expressive, receptive languages and memory DS: Data Data Completed and Pending Labs on day of discharge: Laboratory Results - last 24 hr 04/18/22 09:59 PT 11.8 INR 1.[address] scan - head: Radiologist's impression: ITS Impressions Head CT 04/16/22 19:16 IMPRESSION: 1. No evidence of acute intracranial hemorrhage or edematous territorial infarction. 2. CTA of the head and neck without proximal occlusion or flow-limiting stenosis. 3. Extensive multifocal odontogenic disease. 4. Emphysema. Head/Neck CTA 04/16/22 19:40 IMPRESSION: 1. No evidence of acute intracranial hemorrhage or edematous territorial infarction. 2. CTA of the head and neck without proximal occlusion or flow-limiting stenosis. 3. Extensive multifocal odontogenic disease. 4. Emphysema. Brain MRI 04/17/22 12:15 IMPRESSION: Acute left MCA territory infarct involving the left frontal lobe inclusive of the left precentral gyrus and left middle frontal gyrus, left insula, left temporal operculum, and left rice radiata, seen to better advantage on MRI due to increased sensitivity. No significant mass effect or hemorrhagic transformation. Discharge Plan Discharge Anticipated Discharge Date/Time: 04/18/22 11:18 Patient Disposition: Home, Self-Care Discharge Diagnosis: Acute left MCA stroke Referrals: Ke Barajas MD [Physician] - 1 Month (Left Shoulder pain, recurrent need of steroid injections. ) Sita Abraham FNP [Nurse Practitioner] - 04/29/22 2:30 pm Joe Alvarez MD [Physician] - 2 Weeks (Acute stroke, concern for embolic origin. for Holter monitoring and follow up. ) Discharge Medications: New atorvastatin 80 mg Tablet 80 mg PO BEDTIME Qty: 90 0RF clopidogrel 75 mg Tablet 75 mg PO DAILY Qty: 90 0RF aspirin 81 mg Tablet,Delayed Release (Dr/Ec) 81 mg PO DAILY 90 Days Qty: 90 0RF Discharge Orders: Discharge Order (Routine); Ordered 04/18/22 Ordered By: Nena Garrett Diet: Advance to usual diet Activity on Discharge: As tolerated Stand Alone Forms: Patient Portal Discharge page, Work/School Release Other Ambulatory Orders: ECG 14 day holter monitor (Routine) Timeframe: 2 Weeks Facility: [facility] - Location: Cardiology Ordered By: Nena Garrett Care Plan Goals: Read below Health Concerns: Read below Plan of Treatment: Read below Assessment: You were admitted to the hospital for evaluation of difficulty speech. Evaluated with brain images of CT scan and MRI showing an evidence of acute stroke in left cerebral artery territory. Evaluated by neurologist , physical therapy and speech therapist with recommendation for outpatient speech therapy and to start aspirin, Plavix and cholesterol medication. Start baby aspirin daily Start clopidogrel (Plavix) daily Start atorvastatin 80 mg at bedtime To follow-up with Cardiology as outpatient for Holter monitoring device within the next 2 weeks To follow-up with speech therapy as outpatient You will need a primary care to follow on pending blood work and to arrange the care for you in the future Patient Instructions: Clopidogrel (By mouth) Discharge Date/Time: 04/18/22 16:38
--- NOTE | 2022-04-18 11:57 | MHC.CM.PN ---
This securities underwriter was asked to speak with patient and regarding f/u PCP appointment. Prior to hospital admission patient's PCP appt had retired and they are seeking a new PCP. This securities underwriter was able to secure a PCP appt for patient @ [address] w/ CAMERA OPERATOR Sita Mathew @ 2:30pm. Instructed patient and that they MUST call [facility] insurance HEATHER to assign the CAMERA OPERATOR to the insurance or they will not be able to be seen, they verbalized understanding.
--- NOTE | 2022-04-18 12:26 | MHC.CM.PN ---
Per 's request, COREY called Cardiology at Ext. [phone] and spoke with José.Per José, in order for Patient to obtain a halter monitor today, MD must first write an order, once Patient is completely dc and out of INPATIENT status, Patient must then go to REGISTRATION, register as an OUTPATIENT and get a new account number and then go to the Cardiology Department to get the halter monitor. Process Cheese Cooker/Geena is informing Patient and his of this process and COREY has informed the MD.
[2022-04-18 15:49] VITALS: BP 117/79; PULSE 62; RESP 18; TEMP 37.2; O2SAT 100
--- NOTE | 2022-04-18 16:04 | MHC.CM.PN ---
Patient will be dc to home today with his . Lizbet Monitor is on Patient and PCP appointment has been set up by CM Director.
--- NOTE | 2022-04-18 16:07 | MHC.CM.PN ---
New PCP appointment is scheduled for 04/29/2022 at 2:30 PM.
[2022-04-21 21:48] LABS: Anti-Thrombin III Antigen 94 % normal (80-120)
[2022-04-21 23:54] LABS: Protein C Activity 131 % normal (70-180)
[2022-04-22 00:02] LABS: Protein S Activity rflx Tot&Fr 97 % normal (70-150)
[2022-04-22 16:29] LABS: Homocysteine 10.4 umol/L (<11.4)
[2022-04-23 19:24] LABS: Prothrombin 20210A NEGATIVE
[2022-04-23 23:04] LABS: PTT (LAC) Screen 31 sec (<=40)
[2022-04-24 16:24] LABS: Factor V Leiden NEGATIVE
[2022-05-05 16:19] LABS: Cardiolipin IgG Ab <2.0 GPL-U/mL (<20.0); Cardiolipin IgM Ab <2.0 MPL-U/mL (<20.0)
== END 2022-04-18 16:38 | disposition home or self-care (01) | DRG 66 ==
LOC: HO.ED 20:37 → HO.EDOVER 22:38 → HO.IMC 23:15
PROVIDERS: Nurse Practitioner Family; Admitting Provider Hospitalist; Emergency Provider Emergency Medicine; Visit Provider Student in an Organized Health Care Education/Training Program
DX: I63.412 Cerebral infarction due to embolism of left middle cerebral artery (principal); R47.01 Aphasia; R47.1 Dysarthria and anarthria; Z20.822 Contact with and (suspected) exposure to COVID-19; F17.210 Nicotine dependence, cigarettes, uncomplicated; Z71.6 Tobacco abuse counseling
CPT/HCPCS: 36415; 70450; 70496; 70498; 70551; 80048; 80053; 80061; 80307; 81240; 81241; 83090; 84484; 85025; 85301; 85302; 85303; 85305; 85306; 85597; 85610; 85613; 85730; 86147; 87635; 92523; 93306; 93356; 97161; 97165; 99282; J1650; Q9967

== ENCOUNTER → 2022-04-18 | Outpatient (REF) | payer OTHER, SELFPAY | LOC: HO.CARD | PROVIDERS: Visit Provider Internal Medicine | DX: I63.9 Cerebral infarction, unspecified (principal); R00.0 Tachycardia, unspecified; R00.2 Palpitations | CPT/HCPCS: 93270 ==

== ENCOUNTER 2022-04-24 12:52 | Outpatient (RCR) | payer OTHER, SELFPAY ==
--- NOTE | 2022-04-25 11:24 | MHC.SP.ADU ---
Referring provider: Dr. Garrett Reason for Referral: Assess and treat Expressive Aphasia, s/p CVA Type of Treatment: 86236 Evaluation Speech Sound Production WITH Language Date of Plan of Treatment: 04/24/22 Onset of Symptoms/Illness: 04/15/22 Date Treatment Started: 04/24/22 Medical Diagnosis: S/P CVA with residual Aphasia. Inpatient stay at [facility] 04/16-04/18. From MRI report of Brain study completed 04/17/22: Acute Left MCA territory Infarct involving Left Frontal Gyrus, Left Insula, Left Temporal Lobe, L Omalley Radiata with no mass effect or hemorrhagic transformation. Primary Speech Language Diagnosis: R47.01 Aphasia Secondary Speech Language Diagnosis: History Saleem Grossman is a 51 year old man who recently had a stroke (onset 04/15/22) and was admitted for treatment at [facility] 04/16/22-04/18/22. 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 Saleem and his , Estella, report that the primary presenting symptoms at the time of his stroke was his loss of ability to express himself, at the time, using single words haltingly. Saleem's ability to use language expressively has steadily improved since the time of the stroke, but he notes that he still has some word finding difficulty that can interrupt his ability to communicate his thoughts fluently. Saleem and Estella have also noted occasional difficulty understanding and recalling information from more complex expression. At the time of the assessment, Saleem was planning on returning to his place of work ([employer] in [place]) on the following day. While he was eager to return to work, he expressed awareness that he might have some communication difficulties, and reported that he had notified his employer of the Stroke. In his intake report, Saleem indicated that he has hobbies that include woodworking/carpentry as well as art/painting. He also reported he enjoys listening to audiobooks and has a special interest in astronomy. He is a proud parent of two children one age 21 and one age 16. Medical History: Other: Anxiety/Depression Medication List: Lipitor, Plaxid Recent Hospitalizations: Yes: [facility] 04/16/22-04/18/22 Respiratory Needs: Room Air Patient Orientation: Alert & Oriented x 4 Social History: Employment Status: [employer] Former Employed Highest level of education obtained: Completed some years of college. Current Living Situation: Saleem lives with his and children in a private home in [place]. Assistive Devices in use: Saleem reported that he needs readers, and intends to see an honing machine operator production for his age related vision needs. Past Speech Language Therapy: None Other Therapies Seen in Current Calendar Year: Other: While he was an inpatient, Saleem was screened by both Occupational and Physical Therapy and found to have no needs. Swallowing History: Dysphagia Specific: Within Functional Limits Comments: Saleem has had no difficulty swallowing and no oral motor impairment was indicated as a result of his Stroke. Reported Speech, Language, Cognition difficulties: Understanding, Memory, Speaking Comments: Saleem is currently presenting with mild language issues related to word finding difficulties (in context) and retention and recall of details/information from short term auditory memory. Quality of Life: Excellent Patient Stated Goal of Speech-Language Therapy: Improve verbal expression and recall of information through structured exercises and instruction of compensatory strategies. Assessment Speech Production: Aphasic: Nonfluent Articulate Clinical Impression: Intact Observations: Saleem presents with clear and articulate speech. He evidenced excellent prosody, volume and the ability to use speech effectively and expressively. Aphasic behaviors relate to expressive production of language; Saleem evidenced no use of paraphasia or jargon in his expressive language. Informal Voice Assessment: Voice Loudness: Normal Voice Nasal Resonance: Normal Voice Oral Resonance: Normal Voice Phonatory-based Quality: Normal Voice Pitch: Normal Voice Other Observations: Clinical Impression: Impaired Clinicial Observations: All aspects of voice and vocal production were normal. Tests of Speech & Lang Adults: BDAE BNT Clinical Impression: Impaired Observations: Saleem was administered the Ambler Naming Test and The Ambler Diagnostic Aphasia Evaluation, Short Form. He sustained very strong attention to the evaluation throughout, mostly responding rapidly and efficiently to all items presented. On the Ambler Naming Test, Saleem had difficulty retrieving four more advanced items on the test. He notably demonstrated tip of the tongue behavior (sensing that he knew the word, but could not retrieve it), and was able to describe function or use of the item. When given the first letter or sound of these words, he was able to retrieve the target words. On narrative and conversational tasks, Saleem was generally able to grammatical and fluent speech with descriptive details and some complex vocabulary. While this was evident on testing today, he reports that he continues to have some issues with word retrieval functionally, which can interrupt his flow of communication with others. On receptive language tasks, Saleem was able to retain and repeat words and sentences, follow two step and complex directions, and answer some more abstract yes/no questions in response to a paragraph. He had mild errors retaining/recalling information from paragraph length information that he had read aloud. Impressions and Recommendations Summary: Saleem is currently presenting with primarily a mild anomic aphasia that functionally mildly affects his fluent expression in conversational and functional communication activity. He has made gains in his communicative function, steadily, since the event of his stroke at the beginning of April. Saleem additionally evidences some mild issues with recall related to his short term memory, although further testing is needed in this area. Saleem's difficulties with word retrieval and interruptions to his ability to communicate fluently are likely more salient to him and family members, but his functional ability to communicate is largely intact, and should not impede his return to work and daily communication. Saleem would benefit from a period of speech therapy to improve skills and strategies related to word finding and to further assess issues related to short term memory. Impact on Daily Function/Activity Limitations: Daily Activities: None Interpersonal Interactions: Mild Education: Mild Employment: Mild Community: Mild Prognosis for Improvement: Excellent Comment: Saleem's steady recovery of his communication skills is a strong indication for full recovery from his stroke. Recommendation for Speech Therapy: Outpatient Speech Therapy Frequency/Duration: One weekly speech therapy session to address word finding needs and related memory function, with carry over activities provided during each session. Date Range for Service Requested: 4-8 weeks Time to Reassess: PRN Fpc Goals: Saleem keren improve fluency of word recall in functional and conversational speech, demonstrating awareness of learned strategies as evaluated by demonstrating skills in the 80th percentle or higher on re-evaluation of his skills. Short Term Goals: Goal # : 1./ Saleem will participate and complete assessment of the Repeatable Battery A NS, over two to three sessions. Goal Status: Goal# : 2.1: When given a closed set category (list of items, similar terms, similar functions), Saleem will retrieve the category word with 80% accuracy 2.2 When given an open set category (category name), Saleem will used strategies to name at least 8 items w/in the category w/ 80% accuracy. 2.3: When given a task that requires reasoning or multistep deduction, Saleem will retrieve the target word with 80% accuracy Goal Status: Goal # : 3.1: In a descriptive language or narrative task, Saleem will elect to use one or more of the following word finding strategies to aid communication: Circumlocution, visualization, association, semantic; as demonstrated by fluent production and self report in four out of five contexts. Goal Status: Goal # : 4.1: When given a prompt in the form or a picture or a verbal social problem, Saleem will produce at least 12 sentence length utterances w/ minimal word finding errors (>10%) Goal Status: Patient Education: Completed: Yes Patient/Caregiver Education: Described Results of Evaluation Patient expressed understanding of evaluation Patient agrees with goals and treatment plan Comments/Barriers to Learning: None X Ray Physician Clinican/Clinical Fellow: No Supervisory Statement: N/A Speech Language Pathologist: Kayli Potts M.A., CCC-SPINNING FRAME TENDER
== END 2022-04-26 08:35 | disposition still patient (30) ==
LOC: HO.SH 12:52
PROVIDERS: Visit Provider Student in an Organized Health Care Education/Training Program
DX: R47.01 Aphasia (principal)
CPT/HCPCS: 92523

== ENCOUNTER 2022-05-20 08:12 | Outpatient (REF) | payer OTHER, SELFPAY ==
--- NOTE | ~2022-05-20 | XR_ITS ---
EXAMINATION: Bilateral shoulder x-ray CLINICAL INFORMATION: Pain COMPARISON: MRI of the right shoulder May 2020 TECHNIQUE: 3 views of each shoulder FINDINGS: Bone alignment is normal. No fracture or dislocation. The glenohumeral joints are normal. There is osteoarthritis at both acromioclavicular joints. Soft tissues are unremarkable. XR/XR shoulder LT min 2V IMPRESSION: Arthritis at the bilateral acromioclavicular joints.
--- NOTE | ~2022-05-20 | XR_ITS ---
EXAMINATION: Bilateral shoulder x-ray CLINICAL INFORMATION: Pain COMPARISON: MRI of the right shoulder May 2020 TECHNIQUE: 3 views of each shoulder FINDINGS: Bone alignment is normal. No fracture or dislocation. The glenohumeral joints are normal. There is osteoarthritis at both acromioclavicular joints. Soft tissues are unremarkable. XR/XR shoulder RT min 2V IMPRESSION: Arthritis at the bilateral acromioclavicular joints.
== END 2022-05-20 08:13 | disposition home or self-care (01) ==
LOC: HO.HOSX 08:12
PROVIDERS: Visit Provider Physician Assistant
DX: S46.001A Unspecified injury of muscle(s) and tendon(s) of the rotator cuff of right shoulder, initial encounter (principal); S46.002A Unspecified injury of muscle(s) and tendon(s) of the rotator cuff of left shoulder, initial encounter
CPT/HCPCS: 20610; 73030; J1020

== ENCOUNTER → 2022-05-31 10:54 | Outpatient (BNVA) | payer OTHER, SELFPAY | PROVIDERS: PCP Nurse Practitioner Family; Visit Provider Psychiatry & Neurology Neurology | DX: Z13.89 Encounter for screening for other disorder (principal) ==

== ENCOUNTER → 2022-06-05 12:55 | Outpatient (BNVA) | payer OTHER, SELFPAY | PROVIDERS: PCP Nurse Practitioner Family; Visit Provider Internal Medicine Cardiovascular Disease | DX: R06.09 Other forms of dyspnea (principal) | CPT/HCPCS: 93005 ==

== ENCOUNTER 2022-06-14 10:31 | Day surgery (SDC) | payer OTHER, SELFPAY ==
--- NOTE | 2022-06-13 09:25 | P.CONAN_ITS ---
HPI - Anesthesia Eval Consult details Narrative: 51yo M for Loop Recorder Implant, Transesophageal Echocardiogram [facility] admit 04/2022: Hospital course The patient was admitted to the hospital for evaluation of speech problem.? Diagnosed as expressive aphasia as he was evaluated with brain images of CT angiogram of head and neck showing no acute stenosis or evidence of bleeding or stroke.? MRI was done showing evidence of left MCA territory stroke with concern over possible embolic origin.? Echocardiogram was done with bubble study showing no evidence of connection between left and right side of the heart.? CTA showed no car the disease.? Monitored on telemetry with no evidence of irregular rhythm.? Evaluated by speech therapy who recommended outpatient follow-up.? PT and OT recommended no therapy needed at this stage for the patient.? Started on dual antiplatelet therapy of aspirin and Plavix with addition of atorvastatin at bedtime. PMFSH Active Problems Active Problems: All Active Problems (Updated 05/31/22 @ 11:41 by Tierra Delgadillo MD) CVA, old, aphasia (Acute) Hypersomnia (Acute) Snoring (Acute) Stroke (Acute) Hyperlipidemia (Acute) Rotator cuff injury (Acute) Right shoulder pain (Acute) Past Medical History Medical History Aphasia CVA, old, aphasia Hyperlipidemia Hypersomnia Snoring Stroke Family History Family History Father Epilepsy Mother Esophageal cancer Maternal Aunt Breast CA Maternal Aunt Lung cancer Daughter No problems noted. Son No problems noted. 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 Meds Allergies Allergy/AdvReac Type Severity Reaction Status Date / Time No Known Allergies Allergy Verified 06/05/22 13:04 Home Medications Medication Instructions Recorded Confirmed Last Taken Type amoxicillin 875 mg tablet 875 mg PO BID 06/05/22 06/14/22 Unknown History Exam Exam Date and Time: June 13, 2022 0925 Pertinent Lab Results Pertinent Lab Results: Laboratory Tests 04/16/22 04/17/22 22:57 06:40 WBC 9.0 Hgb 14.0 Hct 41.7 L Plt Count 289 Sodium 139 Potassium 4.8 Chloride 106 Carbon Dioxide 26 BUN 8 L Creatinine 1.04 Narrative Narrative: EKG 05/2022 normal sinus rhythm with right atrial enlargement with rightward axis suggestive pulmonary disease pattern ECHO 04/2022 Conclusions: - The left ventricular systolic function is normal.? The ? calculated ejection fraction is 64% by biplane method. ? - There is no evidence of interatrial shunt by agitated saline.? - No obvious valvular pathology seen on this study.? ??
[2022-06-14 11:17] VITALS: BMI 19.6
[2022-06-14 11:19] VITALS: BP 120/81; PULSE 57; RESP 18; TEMP 36.7; O2SAT 100
[2022-06-14] MEDS: Lactated Ringers 1,000 ML 100 ML IVCONT (11:48)
--- NOTE | 2022-06-14 11:48 | CA_ITS ---
Transesophageal Echocardiogram Patient (Last, First, Middle): Saleem Grossman, Gender: Male Date of : 1970 Age: 51 Procedure Date: 06/14/2022 Procedure Type: Transesophageal Echocardiogram Location: OP Height: 170.18 cm Weight: 57. kg BSA: 1.66 m2 Heart Rate: 112 bpm BP: 165 / 92 mmHg Link Trainer Teacher: SB Referring MD: Carlos Alberto Tamez MD Symptoms: CVA Conclusion: ??? 1. No intracardiac shunting 2. No intracardiac masses, thrombi, vegetations 3. Mild atherosclerotic changes noted in descending thoracic and arch of the aorta 4. Low normal LV systolic function 5. Normal pericardium Findings Procedure Information Consent was obtained prior to the procedure. Pre FROILAN oral cavity was checked and revealed mild overcrowding. The adult 3D probe was passed with minimal difficulty. Left Ventricle Normal left ventricular cavity size. There is normal left ventricular wall thickness. The left ventricular systolic function is low normal. The visually estimated ejection fraction is between 50-55%. Spectral Doppler is indicative of a normal filling pattern. There is no evidence of a mass in the left ventricle. Right Ventricle Normal right ventricular cavity size and systolic function. Atria Both atria are normal in size. There is no evidence of interatrial shunt by agitated saline. the left atrial appendage was added 5 multiple views. Then a thrombi masses seen in the left atrial cavity. Left atrial appendage was also free of any thrombus or masses. The left atrial appendage ejection velocity was within normal limits. The left upper, left lower, right upper and right lower pulmonary vein drain normally into the left atrium. There appears to be a right accessory vein as well. The right atrium was free of any thrombi or masses. The IVC in SVC drain normally into the left atrium. There is no evidence of intracardiac shunting at the atrial level. Aortic Valve Normal aortic valve structure and function. There is no evidence of a mass on the aortic valve. Mitral Valve There is mild anterior and posterior mitral leaflet thickening. There is no mitral valve prolapse. There is mild mitral valve regurgitation. There is no mitral valve stenosis. There is no mass noted on the mitral valve. string he mobile structure noted attached to the undersurface of the posterior mitral leaflet consistent with ruptured cord. Pulmonic Valve The pulmonic valve is normal. Tricuspid Valve Normal tricuspid valve structure. There is trace tricuspid valve regurgitation. There is no evidence of a mass on the tricuspid valve. Great Vessels All visible segments of the aorta are normal in size. Small plaque is seen in the arch and descending thoracic aorta. The visualized portions of the pulmonary artery and branches are normal. Venous The inferior vena cava is normal in size and collapses greater than 50% with inspiration. Pericardium/Pleural There is no evidence of pericardial effusion. Updated by Carlos Alberto Tamez on 03:46 PM with Status of Final Carlos Alberto Tamez MD electronically signed on 06/19/2022 3:46:00 PM with status of Final
--- NOTE | 2022-06-14 11:50 | MHC.SHP ---
Pre-Procedural Eval Section A Date of Service: 06/14/22 The patient is an INPATIENT: No Changes since office visit: Yes Patient answered all questions; No Cold of Flu in the past 2 weeks, No New Medical Problems and No Changes in Medication The History & Physical has been completed within 30 days and I have reviewed it.: Yes Section B Chief Complaint: Cerebral infarction, unspecified Allergies: Allergies Allergy/AdvReac Type Severity Reaction Status Date / Time No Known Allergies Allergy Verified 06/05/22 13:04 Plan I have reviewed the history and physical and performed a pertinent physical examination on my patient. No changes have occurred unless specified. Time Spent With Patient Time: Total time managing care of this patient today ____ minutes.
--- NOTE | 2022-06-14 12:03 | P.CONAN_ITS ---
[facility] [place] Active Problems Active Problems: All Active Problems (Updated 05/31/22 @ 11:41 by Tierra Delgadillo MD) CVA, old, aphasia (Acute) Hypersomnia (Acute) Snoring (Acute) Stroke (Acute) Hyperlipidemia (Acute) Rotator cuff injury (Acute) Right shoulder pain (Acute) Past Medical History Medical History Aphasia CVA, old, aphasia Hyperlipidemia Hypersomnia Snoring Stroke Family History Family History Father Epilepsy Mother Esophageal cancer Maternal Aunt Breast CA Maternal Aunt Lung cancer Daughter No problems noted. Son No problems noted. Maternal Grandmother Stroke Parkinson disease Family history of problems with anesthesia: No Surgical History History of Problems with Anesthesia: No Social History Social History Household Members: Spouse Housing: House Do you presently have visiting nurse or other home services: No Alcohol intake: former Year quit: 2014 Patient Tobacco Use Status: Never used Tobacco Use of substances other than those prescribed or required for medical reasons: Yes Substance Use Type: Marijuana Are you DNR?: No Advance Directives: No Advance Directives Information Provided: Yes service: No Current occupational status: employed 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 Meds Allergies Allergy/AdvReac Type Severity Reaction Status Date / Time No Known Allergies Allergy Verified 06/05/22 13:04 Active Medications: Current Medications Lactated Ringer's (Lr) 1,000 mls @ 100 mls/hr IVCONT .Q10H AUGUST Last Admin: 06/14/22 11:48 Dose: 100 mls/hr Home Medications Medication Instructions Recorded Confirmed Last Taken Type amoxicillin 875 mg tablet 875 mg PO BID 06/05/22 06/05/22 Unknown History Exam Exam Date and Time: June 14, 2022 120 Height,Weight and Vital Signs: Height 5 ft 7 in Weight 56.699 kg Last Vital Signs Temp 98.0 F 06/14/22 11:19 Pulse 57 06/14/22 11:19 Resp 18 06/14/22 11:19 BP 120/81 06/14/22 11:19 Pulse Ox 100 06/14/22 11:19 O2 Del Method Room Air 06/14/22 11:19 Airway Mallampati Class: II TM Dist: >3cm Neck ROM: Full Heart: RRR Lungs: CTA Assessment and Plan Final Anesthetic Review Family History of Problems with Anesthesia: No History of Problems with Anesthesia: No NPO: Yes ASA Class: III Final Preanesthetic Review: Meds/Allgs Chart Reviewed, Consent Obtained/Reviewed and Anes Risks/Benef Reviewed Patient Risk: Low Procedure Risk: Low Anesthetic Plan Anesthetic Plan: GA Disposition: Standard PACU
[2022-06-14 13:30] VITALS: BP 146/96; PULSE 63; RESP 16; TEMP 36.2; O2SAT 100
--- NOTE | 2022-06-14 13:34 | HO.POSTANES ---
Post Anesthesia Evaluation Post Anesthesia Evaluation Vital Signs: Vital Signs Temp Pulse Resp BP Pulse Ox O2 Del Method 06/14/22 11:19 98.0 F 57 18 120/81 100 Room Air Anesthesia: General Endotracheal-GETA Mental Status: Awake Pain Control: Satisfactory Nausea/Vomiting: None Hydration: Adequate Anesthesia-Related Issues: No Anes. Related Issues
[2022-06-14 13:35] VITALS: BP 139/88; PULSE 59; RESP 16; O2SAT 99
[2022-06-14 13:40] VITALS: BP 143/89; PULSE 52; RESP 16; O2SAT 99
--- NOTE | 2022-06-14 13:40 | PM.OP ---
Brief Operative Note Date of Service: 06/14/22 Pre-op diagnosis: CVA Post-op diagnosis: same Procedure: Implantable loop recorder placement Implants: After obtaining full informed consent patient was brought to the OR suite. Patient was in fasting condition. Patient was then given general anesthesia as he was planned to undergo FROILAN as well. The precordial area was then prepped and draped in sterile fashion. A small incision was then made in the precordial area. A [employer] implantable loop recorder was then inserted using Seldinger technique in the subcutaneous space. Measured R-waves at 0.25 mV with excellent P-wave detection. The wound was then closed with Steri-Strips and pressure dressing applied. Surgeon: Carlos Alberto Tamez MD Anesthesia: GLMA Was an Tanker Serviceman used for this Procedure?: No Estimated blood loss (mL): 2 Pathology: none sent Condition: stable Disposition: PACU
[2022-06-14 13:45] VITALS: BP 153/93; PULSE 56; RESP 16; O2SAT 99
[2022-06-14 14:00] VITALS: BP 163/92; PULSE 56; RESP 16; TEMP 36.3; O2SAT 100
== END 2022-06-14 14:55 | disposition home or self-care (01) ==
PROVIDERS: PCP Nurse Practitioner Family; Visit Provider Internal Medicine Cardiovascular Disease
PROC: (CPT 33285; principal; 2022-06-14 12:00)
PROC: (CPT 93312; 2022-06-14 12:00)
DX: I69.320 Aphasia following cerebral infarction (principal); E78.5 Hyperlipidemia, unspecified
CPT/HCPCS: 33285; C1764; J1100; J2250; J3010

== ENCOUNTER → 2022-06-25 09:30 | Outpatient (REF) | payer OTHER, SELFPAY ==
--- NOTE | 2022-06-25 09:32 | CA_ITS ---
Acquisition Time: 2022-06-25 09:43:55 Total Exercise Time: 00:10:12 Test Indications: EXERTIONAL DYSPNEA Medications: SEE MED LIST Protocol: PRICILLA Max HR: 153 BPM 91% of Pred: 168 BPM Max BP: 196/082 mmHG Max Work Load: 12.0 METS Exercise stress test with exercise 10 min 12 sec of Pricilla protocol, achieving 91% MPHR, 12 METs, with fatigue and request to stop, without anginal symptoms, with isolated PVCs and one ventricular cuplet, with normotensive response to exercise, without EKG changes meeting criteria for ischemia. Test reviewed with Dr Alvarez. Referred By: Carlos Alberto Tamez Overread By: CHEAL BLACKMON
== END ==
LOC: HO.CARD 09:30
PROVIDERS: PCP Nurse Practitioner Family; Visit Provider Internal Medicine Cardiovascular Disease
DX: R06.09 Other forms of dyspnea (principal)
CPT/HCPCS: 93017

== ENCOUNTER 2022-06-25 11:00 | Outpatient (RCR) | payer OTHER, SELFPAY | END 2022-07-01 13:49 | disposition home or self-care (01) | LOC: HO.SH 11:00 | PROVIDERS: Visit Provider Nurse Practitioner Family | DX: R13.0 Aphagia (principal) | CPT/HCPCS: 92507 ==

== ENCOUNTER → 2022-06-27 15:45 | Outpatient (BNVA) | payer OTHER, SELFPAY | PROVIDERS: Visit Provider Nurse Practitioner Family ==

== ENCOUNTER → 2022-07-02 09:51 | Outpatient (REF) | payer OTHER, SELFPAY | LOC: HO.SL 09:51 | PROVIDERS: PCP Nurse Practitioner Family; Visit Provider Psychiatry & Neurology Neurology | DX: G47.10 Hypersomnia, unspecified (principal); R06.83 Snoring | CPT/HCPCS: 95806 ==

== ENCOUNTER → 2022-07-25 10:25 | Outpatient (BNVA) | payer OTHER, SELFPAY | PROVIDERS: PCP Nurse Practitioner Family; Visit Provider Psychiatry & Neurology Neurology | DX: R06.83 Snoring (principal); G47.10 Hypersomnia, unspecified; I63.9 Cerebral infarction, unspecified ==

== ENCOUNTER → 2022-08-14 23:59 | Outpatient (BNV) | payer OTHER, SELFPAY ==
--- NOTE | 2022-08-20 11:29 | MHC.OFFVIS ---
Intake Intake Visit Reasons: Remote ILR Check- [employer] Allergies No Known Allergies Allergy (Verified 07/30/22 10:39) [facility] Medical History Aphasia CVA, old, aphasia Hyperlipidemia Hypersomnia Snoring Stroke Family History Father Epilepsy Mother Esophageal cancer Maternal Aunt Breast CA Maternal Aunt Lung cancer Daughter No problems noted. Son No problems noted. 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 No arrhythmias detected [id number] Cardiac Interrogation, subcut cardiac rhythm monitor Procedure code (CPT) selection complete Coding Level of Care Code Procedure Only Diagnoses CPT Codes Cardiac Device Check - Cardiac Device 16: [id number] Cardiac Interrogation, subcut cardiac rhythm monitor ([id number])
== END ==
PROVIDERS: PCP Nurse Practitioner Family; Visit Provider Internal Medicine Cardiovascular Disease
DX: I63.9 Cerebral infarction, unspecified (principal)
CPT/HCPCS: 93298

== ENCOUNTER 2022-08-20 12:54 | Outpatient (REF) | payer OTHER, SELFPAY ==
--- NOTE | ~2022-08-20 | US_ITS ---
EXAMINATION: US ARM, LEFT CLINICAL INFORMATION: Localized swelling with a mass and lump. COMPARISON: None available. TECHNIQUE: High-frequency linear ultrasound transducer was used to examine the area of clinical concern in the arm. FINDINGS: There is a soft compressible 1.7 x 1.3 x 0.7 cm mass present which has similar echogenicity to surrounding fat. No other masses are seen. No fluid collections. US/US extremity nonvascular IMPRESSION: Soft tissue mass most likely a lipoma. If further evaluation is needed, MRI could be performed.
== END 2022-08-20 12:55 | disposition home or self-care (01) ==
LOC: HO.US 12:54
PROVIDERS: PCP Nurse Practitioner Family; Visit Provider Nurse Practitioner Family
DX: R22.32 Localized swelling, mass and lump, left upper limb (principal)
CPT/HCPCS: 76882

== ENCOUNTER → 2022-09-10 20:30 | Outpatient (REF) | payer OTHER, SELFPAY | LOC: HO.SL 20:30 | PROVIDERS: PCP Nurse Practitioner Family; Visit Provider Psychiatry & Neurology Neurology | DX: G47.10 Hypersomnia, unspecified (principal); R06.83 Snoring; I69.320 Aphasia following cerebral infarction | CPT/HCPCS: 95810 ==

== ENCOUNTER → 2022-09-10 23:00 | Outpatient (BNV) | payer OTHER, SELFPAY | PROVIDERS: PCP Nurse Practitioner Family; Visit Provider Psychiatry & Neurology Neurology | DX: R06.83 Snoring (principal) | CPT/HCPCS: 95810 ==

== ENCOUNTER → 2022-09-15 23:59 | Outpatient (BNV) | payer OTHER, SELFPAY ==
--- NOTE | 2022-09-23 11:06 | A.OFFVIS_ITS ---
Intake Intake Visit Reasons: Remote ILR monitoring- [employer] Allergies No Known Allergies Allergy (Verified 07/30/22 10:39) [facility] Medical History Aphasia CVA, old, aphasia Hyperlipidemia Hypersomnia Snoring Stroke Family History Father Epilepsy Mother Esophageal cancer Maternal Aunt Breast CA Maternal Aunt Lung cancer Daughter No problems noted. Son No problems noted. 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 No episodes of atrial fibrillation noted [id number] Cardiac Interrogation, subcut cardiac rhythm monitor Procedure code (CPT) selection complete Coding Level of Care Code Procedure Only Diagnoses CPT Codes Cardiac Device Check - Cardiac Device 16: [id number] Cardiac Interrogation, subcut cardiac rhythm monitor ([id number])
== END ==
PROVIDERS: PCP Nurse Practitioner Family; Visit Provider Internal Medicine Cardiovascular Disease
DX: I63.9 Cerebral infarction, unspecified (principal)
CPT/HCPCS: 93298

== ENCOUNTER → 2022-10-16 23:59 | Outpatient (BNV) | payer OTHER, SELFPAY ==
--- NOTE | 2022-10-17 11:26 | MHC.OFFVIS ---
Intake Intake Visit Reasons: Remote ILR Check- [employer] Allergies No Known Allergies Allergy (Verified 07/30/22 10:39) [facility] Medical History Aphasia CVA, old, aphasia Hyperlipidemia Hypersomnia Snoring Stroke Family History Father Epilepsy Mother Esophageal cancer Maternal Aunt Breast CA Maternal Aunt Lung cancer Daughter No problems noted. Son No problems noted. 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 No arrhythmias detected [id number] Cardiac Interrogation, subcut cardiac rhythm monitor Procedure code (CPT) selection complete Coding Level of Care Code Procedure Only CPT Codes Cardiac Device Check - Cardiac Device 16: [id number] Cardiac Interrogation, subcut cardiac rhythm monitor ([id number])
== END ==
PROVIDERS: PCP Nurse Practitioner Family; Visit Provider Internal Medicine Cardiovascular Disease
DX: I63.9 Cerebral infarction, unspecified (principal)
CPT/HCPCS: 93298

== ENCOUNTER → 2022-11-16 23:59 | Outpatient (BNV) | payer OTHER, SELFPAY ==
--- NOTE | 2022-12-02 08:58 | MHC.OFFVIS ---
Intake Intake Visit Reasons: Remote ILR Check- [employer] Allergies No Known Allergies Allergy (Verified 11/21/22 08:43) [facility] Medical History CVA, old, aphasia Hypersomnia Snoring Hyperlipidemia Stroke Aphasia Family History Father Epilepsy Mother Esophageal cancer Maternal Aunt Breast CA Maternal Aunt Lung cancer Daughter No problems noted. Son No problems noted. 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 No arrhythmias or pauses detected [id number] Cardiac Interrogation, subcut cardiac rhythm monitor Procedure code (CPT) selection complete Coding Level of Care Code Procedure Only CPT Codes Cardiac Device Check - Cardiac Device 16: [id number] Cardiac Interrogation, subcut cardiac rhythm monitor ([id number])
== END ==
PROVIDERS: PCP Nurse Practitioner Family; Visit Provider Internal Medicine Cardiovascular Disease
DX: I63.9 Cerebral infarction, unspecified (principal); Z95.818 Presence of other cardiac implants and grafts
CPT/HCPCS: 93298

== ENCOUNTER 2022-11-21 08:31 | Outpatient (AMB) | payer OTHER, SELFPAY ==
--- NOTE | 2022-11-21 08:38 | MHC.OFFVIS ---
Intake Vital Signs 11/21/22 08:40 Height 5 ft 7 in Weight 119 lb 0.794 oz BMI 18.6 BP 138/84 Blood Pressure Location Lt brachial Position Sitting Pulse 61 Intake Visit Reasons: Colonoscopy Screening Intake Note: Saleem presents in the office as a colonoscopy screening. CC: No concerns today just nervous for the procedure. Allergies No Known Allergies Allergy (Verified 11/21/22 08:43) Medication List - Last Reconciled 11/21/22 by Hazel Wolff PA-C aspirin 81 mg PO DAILY 90 days atorvastatin 80 mg PO BEDTIME clopidogrel 75 mg PO DAILY HPI HPI Comments History of Present Illness Details A 52 y/o male referred for index screening colonoscopy-s/p CVA- speech and memory - taking Plavix past few months Sees Cardiology awaiting -further testing No GI concerns Appetite is good, he has always been thin Bowels normal No nausea, vomiting, hematemesis, fever chills PFSH Medical History CVA, old, aphasia Hypersomnia Snoring Hyperlipidemia Stroke Aphasia Family History Father Epilepsy Mother Esophageal cancer Maternal Aunt Breast CA Maternal Aunt Lung cancer Daughter No problems noted. Son No problems noted. 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 Cognitive needs: No Hearing needs: No Vision needs: No Review of Systems Const All systems reviewed & are unremarkable except as noted in HPI and below Card Denies chest pain and Denies dyspnea Resp Denies dyspnea GI Denies abdominal pain, Denies hematochezia, Denies change in bowel habits, Denies heartburn, Denies nausea and Denies vomiting Physical Exam Vital Signs: Last Vital Signs Pulse 61 11/21/22 08:40 BP 138/84 11/21/22 08:40 BMI result Body Mass Index 18.6 Const General: cooperative, comfortable and well groomed Nutritional Appearance: thin Orientation/consciousness: patient oriented x3 Limitations: no limitations Resp Effort & Inspection: normal respiratory effort and able to speak in complete sentences Cardio Rate: regular rate Rhythm: regular rhythm GI Palpation (GI): Soft to palpation and nontender Auscultation: normal bowel sounds Skin General skin exam: no rashes or lesions noted Neuro General: patient oriented x3 Extrem General: Yes full ROM Psych Appearance: grossly normal Mental Status: mental status grossly normal Speech and movement: Normal speech and movement present Affect: normal affect Attitude: cooperative Thought process: Normal thought process present Thought content: Normal thought content present Insight: Good insight present (Psych) Judgement: Good judgement present (Psych) Assessment & Plan Assessment & Plan (1) Implantable loop recorder present: Code(s): Z95.818 - Presence of other cardiac implants and grafts Plan: Continue follow with cardiology (2) Encounter for screening for malignant neoplasm of colon: Comment: 52-year-old male recent CVA, currently Plavix, referred index screening colonoscopy no G I concerns Code(s): Z12.11 - Encounter for screening for malignant neoplasm of colon Plan: Discuss colon cancer screening, alternatives to colonoscopy to include Cologuard Plan cologuard-13% false-positive If positive recommend colonoscopy Orders: Referrals Cologuard Test I63.9 - Cerebral infarction, unspecified, Z12.11 - Encounter for screening for malignant neoplasm of colon, Z95.818 - Presence of other cardiac implants and grafts Patient Instructions: 52-year-old male, recent CVA, anticoagulation, no GI concerns, no family history GI cancer Reviewed alternatives to colonoscopy given recent health status- Agrees to Cologuard-if positive would recommend colonoscopy- He will continue follow-up with cardiology- He is encouraged to call questions or concerns There are no major barriers to understanding identified Appreciate the opportunity assist in the care the patient Coding Level of Care Code New Pt Level 3 (85618) Diagnoses Implantable loop recorder present Z95.818 Encounter for screening for malignant neoplasm of colon Z12.11 Time Spent (min) 30
[2022-11-21 08:40] VITALS: BP 138/84; PULSE 61; BMI 18.6
== END 2022-11-21 10:41 | disposition home or self-care (01) ==
PROVIDERS: PCP Nurse Practitioner Family; Visit Provider Physician Assistant
DX: Z95.818 Presence of other cardiac implants and grafts (principal); Z12.11 Encounter for screening for malignant neoplasm of colon
CPT/HCPCS: 99203; 99213

== ENCOUNTER → 2022-11-21 08:31 | Outpatient (BNVA) | payer OTHER, SELFPAY | PROVIDERS: PCP Nurse Practitioner Family; Visit Provider Physician Assistant ==

== ENCOUNTER 2022-12-13 09:28 | Outpatient (AMB) | payer OTHER, SELFPAY ==
--- NOTE | 2022-12-13 09:35 | MHC.OFFVIS ---
Intake Vital Signs 12/13/22 09:36 Height 5 ft 7 in Weight 123 lb 7.342 oz BMI 19.3 BP 114/70 Blood Pressure Location Lt brachial Position Sitting Pulse 47 L Intake Visit Reasons: 6 mth fu Intake Note: 6 month follow up Manager Generation Required: No Accompanied by: Self / Same As Patient Allergies No Known Allergies Allergy (Verified 12/13/22 09:36) Medication List - Last Reconciled 12/13/22 by Carlos Alberto Tamez MD aspirin 81 mg PO DAILY 90 days atorvastatin 80 mg PO BEDTIME clopidogrel 75 mg PO DAILY HPI HPI Comments History of Present Illness Details Saleem comes for follow up office implantable loop recorder check. No new symptoms. Taking all his medications. Denies any exertional symptoms. [facility] Medical History CVA, old, aphasia Hypersomnia Snoring Hyperlipidemia Stroke Aphasia Family History Father Epilepsy Mother Esophageal cancer Maternal Aunt Breast CA Maternal Aunt Lung cancer Daughter No problems noted. Son No problems noted. 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 Cognitive needs: No Hearing needs: No Vision needs: No Review of Systems Const Denies weakness ENT Denies dizziness Card Denies chest pain, Denies chest pain with activity, Denies syncope, Denies rapid heart rate, Denies pedal edema, Denies edema, Denies leg edema, Denies lightheadedness, Denies palpitations, Denies dyspnea, Denies dyspnea on exertion and Denies orthopnea Resp Denies cough, Denies dyspnea and Denies dyspnea on exertion GI Denies hematochezia and Denies change in stool character Musc Denies abnormal gait, Denies muscle cramps, Denies muscle weakness, Denies numbness, Denies radiating pain into limb and Denies tingling Neuro Denies abnormal gait, Denies dizziness, Denies syncope, Denies numbness, Denies tingling and Denies weakness Endo Denies palpitations Physical Exam Vital Signs: Last Vital Signs Pulse 47 L 12/13/22 09:36 BP 114/70 12/13/22 09:36 BMI result Body Mass Index 19.3 Const General: cooperative, healthy appearing, comfortable and no acute distress Orientation/consciousness: patient oriented x3 Chest Chest palpation & inspection: normal inspection of the chest Resp Effort & Inspection: normal respiratory effort Auscultation: clear to auscultation bilaterally, no rales, no rhonchi and no wheezes Cardio Jugular venous distension: no JVD Rate: regular rate Rhythm: regular rhythm Heart sounds: S1 normal heart sound present, S2 normal heart sound present, no gallops, no murmurs and no rubs Neuro General: patient oriented x3 Psych Appearance: grossly normal Mental Status: mental status grossly normal Speech and movement: Normal speech and movement present Office Procedures Cardiac Device Check Cardiac Device Check Details: [employer] implantable loop recorder in place. Battery life is good. Detected R-waves at 0.37 mV. No arrhythmias detected. [id number] Device Interrogation, subcut cardiac rhythm monitor Procedure code (CPT) selection complete Assessment & Plan Assessment & Plan (1) CVA, old, aphasia: Code(s): I69.320 - Aphasia following cerebral infarction Plan: CVA without any obvious etiology. No evidence of atrial fibrillation so far. Will monitor for 6 more months. If no evidence of atrial fibrillation will discussed about explanting the device. Continue dual antiplatelet therapy in absence of any other obvious etiology. Consider consultation with Neurology. Continue high-intensity statin therapy. Target goal LDL less than 70 mg/dL. Advised lipid panel near future. Complete abstinence from smoking was discussed. Will follow up in the clinic in 6 months time. Orders: Orders Lipid Panel Today I25.10 - Atherosclerotic heart disease of [place] coronary artery without angina pectoris, I69.320 - Aphasia following cerebral infarction Coding Level of Care Code Est Pt Level 3 (05561) Diagnoses CVA, old, aphasia I69.320 CPT Codes Cardiac Device Check - Cardiac Device 11: [id number] Device Interrogation, subcut cardiac rhythm monitor ([id number])
[2022-12-13 09:36] VITALS: BP 114/70; PULSE 47; BMI 19.3
== END 2022-12-13 09:53 | disposition home or self-care (01) ==
PROVIDERS: PCP Nurse Practitioner Family; Visit Provider Internal Medicine Cardiovascular Disease
DX: I69.320 Aphasia following cerebral infarction (principal); Z95.818 Presence of other cardiac implants and grafts
CPT/HCPCS: 93291; 99213

== ENCOUNTER → 2022-12-13 09:28 | Outpatient (BNVA) | payer OTHER, SELFPAY | PROVIDERS: PCP Nurse Practitioner Family; Visit Provider Internal Medicine Cardiovascular Disease ==

== ENCOUNTER → 2022-12-16 23:59 | Outpatient (BNV) | payer OTHER, SELFPAY ==
--- NOTE | 2022-12-17 11:29 | A.OFFVIS_ITS ---
Intake Intake Visit Reasons: Remote ILR Check- [employer] Allergies No Known Allergies Allergy (Verified 12/13/22 09:36) PFSH Medical History CVA, old, aphasia Hypersomnia Snoring Hyperlipidemia Stroke Aphasia Family History Father Epilepsy Mother Esophageal cancer Maternal Aunt Breast CA Maternal Aunt Lung cancer Daughter No problems noted. Son No problems noted. 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 No episodes of atrial fibrillation 43330-Egijmu Cardiac Interrogation, subcut cardiac rhythm monitor Procedure code (CPT) selection complete Coding Level of Care Code Procedure Only CPT Codes Cardiac Device Check - Cardiac Device 16: 92260-Lssfbw Cardiac Interrogation, subcut cardiac rhythm monitor ([id number])
== END ==
PROVIDERS: PCP Nurse Practitioner Family; Visit Provider Internal Medicine Cardiovascular Disease
DX: I63.9 Cerebral infarction, unspecified (principal); Z95.818 Presence of other cardiac implants and grafts
CPT/HCPCS: 93298

== ENCOUNTER 2022-12-20 09:49 | Outpatient (REF) | payer OTHER, SELFPAY ==
[2022-12-20 11:37] LABS: Cholesterol 106 mg/dL (<200); HDL Cholesterol 39 mg/dL (>40); LDL Cholesterol Calculated 52 mg/dL (<100); Triglycerides 79 mg/dL (<150)
== END 2022-12-20 09:50 | disposition home or self-care (01) ==
LOC: HO.LAB 09:49
PROVIDERS: PCP Nurse Practitioner Family; Visit Provider Internal Medicine Cardiovascular Disease
DX: I25.10 Atherosclerotic heart disease of native coronary artery without angina pectoris (principal); I69.320 Aphasia following cerebral infarction
CPT/HCPCS: 36415; 80061

== ENCOUNTER → 2023-01-16 23:59 | Outpatient (BNV) | payer OTHER, SELFPAY ==
--- NOTE | 2023-01-20 14:33 | MHC.OFFVIS ---
Intake Intake Visit Reasons: Remote ILR Check- [employer] Allergies No Known Allergies Allergy (Verified 12/13/22 09:36) PFS Medical History CVA, old, aphasia Hypersomnia Snoring Hyperlipidemia Stroke Aphasia Family History Father Epilepsy Mother Esophageal cancer Maternal Aunt Breast CA Maternal Aunt Lung cancer Daughter No problems noted. Son No problems noted. 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 No episodes of atrial fibrillation or pauses noted 28936-Zyrife Cardiac Interrogation, subcut cardiac rhythm monitor Procedure code (CPT) selection complete Assessment & Plan Assessment & Plan (1) Implantable loop recorder present: Code(s): Z95.818 - Presence of other cardiac implants and grafts Plan: See above Coding Level of Care Code Procedure Only Diagnoses Implantable loop recorder present Z95.818 CPT Codes Cardiac Device Check - Cardiac Device 16: 07293-Sbwfuu Cardiac Interrogation, subcut cardiac rhythm monitor ([id number])
== END ==
PROVIDERS: PCP Nurse Practitioner Family; Visit Provider Internal Medicine Cardiovascular Disease
DX: I63.9 Cerebral infarction, unspecified (principal); Z95.818 Presence of other cardiac implants and grafts
CPT/HCPCS: 93298

== ENCOUNTER → 2023-02-16 23:59 | Outpatient (BNV) | payer OTHER, SELFPAY ==
--- NOTE | 2023-02-18 16:26 | MHC.OFFVIS ---
Intake Intake Visit Reasons: Remote ILR Check- [employer] Allergies No Known Allergies Allergy (Verified 12/13/22 09:36) PFSH Medical History CVA, old, aphasia Hypersomnia Snoring Hyperlipidemia Stroke Aphasia Family History Father Epilepsy Mother Esophageal cancer Maternal Aunt Breast CA Maternal Aunt Lung cancer Daughter No problems noted. Son No problems noted. 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 No arrhythmias or pauses noted 30758-Vkvchv Cardiac Interrogation, subcut cardiac rhythm monitor Procedure code (CPT) selection complete Assessment & Plan Assessment & Plan (1) Implantable loop recorder present: Code(s): Z95.818 - Presence of other cardiac implants and grafts Plan: See above Coding Level of Care Code Procedure Only Diagnoses Implantable loop recorder present Z95.818 CPT Codes Cardiac Device Check - Cardiac Device 16: 53103-Nascpj Cardiac Interrogation, subcut cardiac rhythm monitor ([id number])
== END ==
PROVIDERS: PCP Nurse Practitioner Family; Visit Provider Internal Medicine Cardiovascular Disease
DX: I63.9 Cerebral infarction, unspecified (principal); Z95.818 Presence of other cardiac implants and grafts
CPT/HCPCS: 93298

== ENCOUNTER → 2023-03-19 23:59 | Outpatient (BNV) | payer OTHER, SELFPAY ==
--- NOTE | 2023-03-24 14:06 | MHC.OFFVIS ---
Intake Intake Visit Reasons: Remote ILR Check- [employer] Allergies No Known Allergies Allergy (Verified 12/13/22 09:36) PFS Medical History CVA, old, aphasia Hypersomnia Snoring Hyperlipidemia Stroke Aphasia Family History Father Epilepsy Mother Esophageal cancer Maternal Aunt Breast CA Maternal Aunt Lung cancer Daughter No problems noted. Son No problems noted. 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 No episodes of atrial fibrillation or pauses noted 28782-Dbjnhs Cardiac Interrogation, subcut cardiac rhythm monitor Procedure code (CPT) selection complete Assessment & Plan Assessment & Plan (1) Implantable loop recorder present: Code(s): Z95.818 - Presence of other cardiac implants and grafts Plan: See above Coding Level of Care Code Procedure Only Diagnoses Implantable loop recorder present Z95.818 CPT Codes Cardiac Device Check - Cardiac Device 16: 93328-Xdkjov Cardiac Interrogation, subcut cardiac rhythm monitor ([id number])
== END ==
PROVIDERS: PCP Nurse Practitioner Family; Visit Provider Internal Medicine Cardiovascular Disease
DX: Z95.818 Presence of other cardiac implants and grafts (principal); I63.9 Cerebral infarction, unspecified
CPT/HCPCS: 93298

== ENCOUNTER → 2023-04-19 23:59 | Outpatient (BNV) | payer OTHER, SELFPAY ==
--- NOTE | 2023-04-21 15:46 | A.OFFVIS_ITS ---
Intake Intake Visit Reasons: Remote ILR Check- [employer] Allergies No Known Allergies Allergy (Verified 12/13/22 09:36) PFSH Medical History CVA, old, aphasia Hypersomnia Snoring Hyperlipidemia Stroke Aphasia Family History Father Epilepsy Mother Esophageal cancer Maternal Aunt Breast CA Maternal Aunt Lung cancer Daughter No problems noted. Son No problems noted. 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 No arrhythmias or pauses detected 71354-Dtdybt Cardiac Interrogation, subcut cardiac rhythm monitor Procedure code (CPT) selection complete Assessment & Plan Assessment & Plan (1) Implantable loop recorder present: Code(s): Z95.818 - Presence of other cardiac implants and grafts Plan: See above Coding Level of Care Code Procedure Only Diagnoses Implantable loop recorder present Z95.818 CPT Codes Cardiac Device Check - Cardiac Device 16: 57090-Inpebt Cardiac Interrogation, subcut cardiac rhythm monitor ([id number])
== END ==
PROVIDERS: PCP Nurse Practitioner Family; Visit Provider Internal Medicine Cardiovascular Disease
DX: I63.9 Cerebral infarction, unspecified (principal); Z95.818 Presence of other cardiac implants and grafts
CPT/HCPCS: 93298

== ENCOUNTER → 2023-05-21 23:59 | Outpatient (BNV) | payer OTHER, SELFPAY ==
--- NOTE | 2023-05-29 15:57 | A.OFFVIS_ITS ---
Intake Visit Reasons: Remote ILR check- [employer] Allergies No Known Allergies Allergy (Verified 12/13/22 09:36) PFS Medical History CVA, old, aphasia Hypersomnia Snoring Hyperlipidemia Stroke Aphasia Family History Father Epilepsy Mother Esophageal cancer Maternal Aunt Breast CA Maternal Aunt Lung cancer Daughter No problems noted. Son No problems noted. 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 No arrhythmias or pauses noted [id number]-Xemkfu Cardiac Interrogation, subcut cardiac rhythm monitor Procedure code (CPT) selection complete Assessment & Plan Assessment & Plan (1) Implantable loop recorder present: Code(s): Z95.818 - Presence of other cardiac implants and grafts Category: Medical Plan: See above
== END ==
PROVIDERS: PCP Nurse Practitioner Family; Visit Provider Internal Medicine Cardiovascular Disease
DX: Z45.09 Encounter for adjustment and management of other cardiac device (principal)
CPT/HCPCS: 93298

== ENCOUNTER 2023-06-20 08:17 | Outpatient (AMB) | payer OTHER, SELFPAY ==
[2023-06-20 08:19] VITALS: BP 122/80; PULSE 69; BMI 19.0
--- NOTE | 2023-06-20 08:19 | A.OFFVIS_ITS ---
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 He has been doing well. He has had no neurologic events. Takes his medication symptoms forgets to take his LDL. Despite that his LDL is optimized at 52. He said with exercise he feels tired but otherwise no exertional symptoms. No bleeding issues or neurologic events. He denies any palpitations. [facility] Medical History CVA, old, aphasia Hypersomnia Snoring Hyperlipidemia Stroke Aphasia Family History Father Epilepsy Mother Esophageal cancer Maternal Aunt Breast CA Maternal Aunt Lung cancer Daughter No problems noted. Son No problems noted. 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 Cognitive needs: No Hearing needs: No Vision needs: No Review of Systems Const Denies chills, Denies fatigue, Denies fever(s), Denies frequent falls, Denies weakness, Denies weight gain and Denies weight loss ENT Denies dizziness Card Denies chest pain, Denies leg edema, Denies lightheadedness, Denies palpitatio ns, Denies dyspnea, Denies dyspnea on exertion, Denies orthopnea and Denies other (loss of consciousness) Resp Denies cough, Denies dyspnea and Denies dyspnea on exertion GI Denies hematochezia and Denies change in stool character Musc Denies abnormal gait, Denies muscle weakness, Denies numbness, Denies radiating pain into limb and Denies tingling Neuro Denies abnormal gait, Denies dizziness, Denies frequent falls, Denies numbness, Denies tingling and Denies weakness Endo Denies fatigue and Denies palpitations Physical Exam Vital Signs: Last Vital Signs Pulse 69 06/20/23 08:19 BP 122/80 06/20/23 08:19 BMI result Body Mass Index 19.0 Const General: cooperative, healthy appearing, comfortable, no acute distress and poor hygiene Orientation/consciousness: patient oriented x3 Chest Chest palpation & inspection: normal inspection of the chest Resp Effort & Inspection: normal respiratory effort Auscultation: clear to auscultation bilaterally, no rales, no rhonchi and no wheezes Cardio Jugular venous distension: no JVD Rate: regular rate Rhythm: regular rhythm Heart sounds: S1 normal heart sound present, S2 normal heart sound present, no gallops, no murmurs and no rubs Neuro General: patient oriented x3 Psych Appearance: grossly normal Mental Status: mental status grossly normal Speech and movement: Normal speech and movement present Office Procedures Cardiac Device Check Cardiac Device Check Details: [employer] implantable loop recorder in place. No arrhythmias detected. Measured R-waves 0.35-0.4 mV 94413-Bzpqsop Device Interrogation, subcut cardiac rhythm monitor Procedure code (CPT) selection complete EKG Details: EKG shows normal sinus rhythm with sinus arrhythmia with possible left atrial enlargement otherwise normal EKG 05616-Pdnpphbnrlpmthqqf, Complete Assessment & Plan Assessment & Plan (1) CVA, old, aphasia: Code(s): I69.320 - Aphasia following cerebral infarction Category: Medical Plan: CVA of unclear origin. Currently on dual antiplatelet therapy tolerating well. Continue the same. So far there are no arrhythmias noted. No intracardiac shunting noted. LDL is well optimized. He can take all of his 3 medications the morning so he does not forget to take them in the evening. Will continue follow implantable loop recorder remotely and if there no further events in 6 months will schedule him for removal of the implantable loop recorder. Follow- up after for wound check only. Beyond that does not require regular cardiology follow-up He requires a primary care physician for follow-ups. Coding Level of Care Code Est Pt Level 3 (86052) Diagnoses CVA, old, aphasia I69.320 CPT Codes Cardiac Device Check - Cardiac Device 11: 61596-Fromheh Device Interrogation, subcut cardiac rhythm monitor ([id number]) EKG - CPT: 36101-Bpcaoxqurujeritya, Complete ([id number])
== END 2023-06-20 08:57 | disposition home or self-care (01) ==
PROVIDERS: PCP Nurse Practitioner Family; Visit Provider Internal Medicine Cardiovascular Disease
DX: I69.320 Aphasia following cerebral infarction (principal)
CPT/HCPCS: 93010; 93291; 99213

== ENCOUNTER → 2023-06-20 08:17 | Outpatient (BNVA) | payer OTHER, SELFPAY | PROVIDERS: PCP Nurse Practitioner Family; Visit Provider Internal Medicine Cardiovascular Disease | DX: I69.320 Aphasia following cerebral infarction (principal); Z79.899 Other long term (current) drug therapy; Z45.09 Encounter for adjustment and management of other cardiac device | CPT/HCPCS: 93005 ==

== ENCOUNTER → 2023-06-21 23:59 | Outpatient (BNV) | payer OTHER, SELFPAY ==
--- NOTE | 2023-07-14 13:24 | MHC.OFFVIS ---
Intake Visit Reasons: Remote ILR check- [employer] Allergies No Known Allergies Allergy (Verified 12/13/22 09:36) PFSH Medical History CVA, old, aphasia Hypersomnia Snoring Hyperlipidemia Stroke Aphasia Family History Father Epilepsy Mother Esophageal cancer Maternal Aunt Breast CA Maternal Aunt Lung cancer Daughter No problems noted. Son No problems noted. 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 No Af or pauses noted 81248-Ycrunb Cardiac Interrogation, subcut cardiac rhythm monitor Procedure code (CPT) selection complete Assessment & Plan Assessment & Plan (1) Implantable loop recorder present: Code(s): Z95.818 - Presence of other cardiac implants and grafts Category: Medical Plan: See above Coding Level of Care Code Procedure Only Diagnoses Implantable loop recorder present Z95.818 CPT Codes Cardiac Device Check - Cardiac Device 16: 46442-Yczihl Cardiac Interrogation, subcut cardiac rhythm monitor ([id number])
== END ==
PROVIDERS: PCP Nurse Practitioner Family; Visit Provider Internal Medicine Cardiovascular Disease
DX: Z45.09 Encounter for adjustment and management of other cardiac device (principal)
CPT/HCPCS: 93298

== ENCOUNTER → 2023-07-22 23:59 | Outpatient (BNV) | payer OTHER, SELFPAY ==
--- NOTE | 2023-08-05 16:16 | A.OFFVIS_ITS ---
Intake Visit Reasons: Remote ILR check- [employer] Allergies No Known Allergies Allergy (Verified 12/13/22 09:36) PFSH Medical History CVA, old, aphasia Hypersomnia Snoring Hyperlipidemia Stroke Aphasia Family History Father Epilepsy Mother Esophageal cancer Maternal Aunt Breast CA Maternal Aunt Lung cancer Daughter No problems noted. Son No problems noted. 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 No episodes of atrial fibrillation with pauses noted 85574-Knigjg Cardiac Interrogation, subcut cardiac rhythm monitor Procedure code (CPT) selection complete Assessment & Plan Assessment & Plan (1) Implantable loop recorder present: Code(s): Z95.818 - Presence of other cardiac implants and grafts Category: Medical Plan: See above Coding Level of Care Code Procedure Only Diagnoses Implantable loop recorder present Z95.818 CPT Codes Cardiac Device Check - Cardiac Device 16: 10672-Lwobrm Cardiac Interrogation, subcut cardiac rhythm monitor ([id number])
== END ==
PROVIDERS: PCP Nurse Practitioner Family; Visit Provider Internal Medicine Cardiovascular Disease
DX: I48.91 Unspecified atrial fibrillation (principal); Z95.818 Presence of other cardiac implants and grafts
CPT/HCPCS: 93298

== ENCOUNTER 2023-08-06 14:45 | Outpatient (AMB) | payer OTHER, SELFPAY ==
--- NOTE | 2023-08-06 14:49 | MHC.PC.OV ---
Vital Signs 08/06/23 14:52 Height 5 ft 7 in Weight 117 lb 8 oz BMI 18.4 BP 120/60 Blood Pressure Location Lt brachial Position Sitting Pulse 70 Pulse Source Pulse Oximeter Pulse Oximetry (%) 97 Oxygen Delivery Method Room Air Intake Visit Reasons: annual exam/ establish care/ Sita patient Intake Note: Patient is here today for a physical and RISHABH from [employer] Card Cancellation Clerk Required: No Phlebotomist Prn: Not Required per policy Accompanied by: Self / Same As Patient Allergies No Known Allergies Allergy (Verified 08/07/23 06:10) Medication List - Last Reconciled 08/07/23 by Raj Quinn MD aspirin 81 mg PO DAILY 90 days atorvastatin 80 mg PO BEDTIME clopidogrel 75 mg PO DAILY Tobacco use date assessed: 08/06/23 Dental Screening Dental Screen Date: 08/06/23 Did you have a dental visit in the last 12 months?: No Did you have a dental problem in the last 6 months where you did not have access to dental care?: No Was dental information given to patient?: No HPI annual exam/ establish care/ Sita patient HPI Details 3-year-old male presents to the office to discuss his chronic problems and requesting a physical. Patient had expressive aphasia in 04/29/2022. Workup including an MRI of the brain was positive for a lacunar stroke in the left frontal area. The remaining of the workup including Holter monitor echo and sleep study was unremarkable. Patient now has a loop monitor placed which is periodically reviewed. 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 Able to function and do activities of daily living. Due to poor dental hygiene and condition of the mouth, his intake is poor. [facility] Medical History (Updated 08/07/23 @ 06:16 by Raj Quinn MD) Hypersomnia Snoring Hyperlipidemia Stroke Surgical History No pertinent past surgical history Family History Father Epilepsy Mother Esophageal cancer Maternal Aunt Breast CA Maternal Aunt Lung cancer Daughter No problems noted. Son No problems noted. 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 1. Little interest or pleasure in doing things: not at all 2. Feeling down, depressed, or hopeless: not at all 3. Trouble falling or staying asleep, or sleeping too much: not at all 4. Feeling tired or having little energy: not at all 5. Poor appetite or overeating: not at all 6. Feeling bad about yourself - or that you are a failure or have let yourself or your family down: not at all 7. Trouble concentrating on things, such as reading the newspaper or watching television: not at all 8. Moving or speaking so slowly that other people could have noticed. Or the opposite - being so fidgety or restless that you have been moving around a lot more than usual: not at all 9. Thoughts that you would be better off or of hurting yourself in some way: not at all Total score: 0 Depression Screening Interpretation: Negative Depression Screening Done: Yes Source: Developed by Drs. Jordon Spears, Jillian Aldrich, Luisito Hong and colleagues, with an educational abner from [employer]. Thrive Questionnaire Date Thrive assessed: 08/06/23 I am a: Patient What is your living situation today?: I have a steady place to live Within the past 12 months, did the food you bought not last and you didn't have the money to get more?: Never true Within the past 12 months, did you worry whether your food would run out before you got money to buy more?: Never true Do you have trouble paying for medicines?: No Do you have trouble getting transportation to medical appointments?: No Do you have trouble paying your heating and electricity bill?: No Do you have trouble taking care of your child, family member or friend?: No Do you have trouble with day-to-day activities such as bathing, preparing meals, shopping, managing finances, etc.?: No Are you currently unemployed and looking for a job?: No Are you interested in more education?: No Currently or been in a relationship where the following occur: No concerns reported THRIVE Score: 0 AUDIT C Alcohol Use Questionnaire (AUDIT-C) 1. How often do you have a drink containing alcohol?: Never Total Score: 0 SUNITA-7 AMB Questionnaire SUNITA-7 Date SUNITA - 7 assessed: 08/06/23 Feeling nervous, anxious, or on edge: 0 = Not at all Not being able to stop or control worryin = Not at all Worrying too much about different things: 0 = Not at all Trouble relaxin = Not at all Being so restless that it is hard to sit still: 0 = Not at all Becoming easily annoyed or irritable: 0 = Not at all Feeling afraid as if something awful might happen: 0 = Not at all Total SUNITA-7 score (0-4 normal; 5-9 mild; 10-14 moderate; 15-21 severe): 0 Source: Developed by Drs. Jordon Spears, Jillian Aldrich, Luisito Hong and colleagues, with an educational abner from [employer]. Physical exam (Primary Care) Vital Signs: Last Vital Signs Pulse 70 08/06/23 14:52 BP 120/60 08/06/23 14:52 Pulse Ox 97 08/06/23 14:52 Oxygen Delivery Method Room Air 08/06/23 14:52 BMI result Body Mass Index 18.4 Tobacco/Smoking Status: Tobacco use Status Tobacco use date assessed 08/06/23 08/06/23 14:58 Patient Tobacco Use Status Never used Tobacco 08/06/23 14:58 e-Cigarette/Vaping Use Never Used 08/06/23 14:58 PHQ-9: PHQ-9 Score PHQ-9: Total score 0 08/06/23 14:58 Depression Screening Interpretation: Negative Thrive Assessment: Date of Thrive Assessment Date Thrive assessed 08/06/23 08/06/23 14:58 Currently or been in a relationship where the following occur: No concerns reported Const General: cooperative and healthy appearing Nutritional Appearance: well nourished Orientation/consciousness: patient oriented x3 Limitations: no limitations HENMT Head: Yes normal to inspection Eyes General: appearance normal, both eyes and all related structures Neck Neck: Yes normal visual inspection Chest Chest palpation & inspection: normal palpation of entire chest wall Resp Effort & Inspection: normal respiratory effort Neuro General: patient oriented x3 Assessment and Plan Assessment & Plan (1) Stroke: Code(s): I63.9 - Cerebral infarction, unspecified Plan: Blood work has been ordered . Neurology note reviewed. Continue the Plavix and medication for hyper cholesterolemia. Patient can proceed for dental and a preop clearance will be provided. (2) Annual physical exam: Code(s): Z00.00 - Encounter for general adult medical examination without abnormal findings Plan: Blood work ordered. Screening Cologuard results were reviewed. Orders: Orders Basic Metabolic Panel 08/06/23 E78.5 - Hyperlipidemia, unspecified, I63.9 - Cerebral infarction, unspecified, M25.511 - Pain in right shoulder Complete Blood Count no Diff 08/06/23 E78.5 - Hyperlipidemia, unspecified, I63.9 - Cerebral infarction, unspecified, M25.511 - Pain in right shoulder Liver Panel 08/06/23 E78.5 - Hyperlipidemia, unspecified, I63.9 - Cerebral infarction, unspecified, M25.511 - Pain in right shoulder Lipid Panel 08/06/23 E78.5 - Hyperlipidemia, unspecified, I63.9 - Cerebral infarction, unspecified, M25.511 - Pain in right shoulder Thyroid Stimulating Hormone 08/06/23 E78.5 - Hyperlipidemia, unspecified, I63.9 - Cerebral infarction, unspecified, M25.511 - Pain in right shoulder UA and rflx microscopic 08/06/23 E78.5 - Hyperlipidemia, unspecified, I63.9 - Cerebral infarction, unspecified, M25.511 - Pain in right shoulder Coding Level of Care Code Est Pt Level 3 (58213) Est Pt Prev Care 40-64y(92697) Diagnoses Stroke I63.9 Annual physical exam Z00.00
[2023-08-06 14:52] VITALS: BP 120/60; PULSE 70; O2SAT 97; BMI 18.4
== END 2023-08-06 15:37 | disposition home or self-care (01) ==
PROVIDERS: PCP Nurse Practitioner Family; Visit Provider Internal Medicine
DX: Z00.00 Encounter for general adult medical examination without abnormal findings (principal); Z86.73 Personal history of transient ischemic attack (TIA), and cerebral infarction without residual deficits
CPT/HCPCS: 99396

== ENCOUNTER 2023-08-06 15:42 | Outpatient (REF) | payer OTHER, SELFPAY ==
[2023-08-06 17:41] LABS: Hematocrit 42.5 % (42.0-52.0); Hemoglobin 14.1 g/dl (14.0-18.0); Mean Corpuscular HGB Conc 33.2 g/dl (31.0-36.0); Mean Corpuscular Hemoglobin 30.1 pg (27.0-33.0); Mean Corpuscular Volume 90.8 fL (80.0-98.0); Mean Platelet Volume 8.9 fL (9.4-12.4); Platelet Count 307 X10*3/uL (160-400); Red Blood Count 4.68 X10*6/uL (4.60-5.80); White Blood Count 8.1 X10*3/uL (4.8-10.8)
[2023-08-06 17:50] LABS: Appearance Urine Clear; Color Urine Yellow; Glucose Urine UA Negative (Negative); Leukocyte Esterase Urine Negative (Negative); Nitrite Urine Negative (Negative); PH 6.5 (5.0-9.0); Urine Blood Negative (Negative); Urine Ketones Trace mg/dL (Negative); Urine Protein Trace mg/dL (Neg-Trace)
[2023-08-06 18:23] LABS: Alanine Aminotransferase 24 U/L (0-40); Albumin Level 4.4 g/dL (3.5-5.0); Alkaline Phosphatase 105 U/L (39-117); Anion Gap 13 (12-20); Aspartate Amino Transferase 32 U/L (5-37); Bilirubin Direct 0.2 mg/dL (0.0-0.5); Bilirubin Total 0.5 mg/dL (0.0-1.0); Blood Urea Nitrogen 6 mg/dL (9-16); Calcium 9.5 mg/dL (8.4-10.2); Carbon Dioxide 27 mmol/L (22-29); Chloride 105 mmol/L (96-108); Cholesterol 106 mg/dL (<200); Estimated Glomerular Filt Rate > 60; Glucose Random 83 mg/dL (60-115); HDL Cholesterol 41 mg/dL (>40); LDL Cholesterol Calculated 47 mg/dL (<100); Potassium 3.9 mmol/L (3.3-5.1); Sodium 141 mmol/L (135-145); Total Protein 7.6 g/dL (6.5-8.0); Triglycerides 92 mg/dL (<150)
[2023-08-06 18:39] LABS: Thyroid Stimulating Hormone 1.91 uIU/mL (0.32-4.0)
== END 2023-08-06 15:43 | disposition home or self-care (01) ==
LOC: HO.LAB 15:42
PROVIDERS: PCP Internal Medicine; Visit Provider Internal Medicine
DX: I63.9 Cerebral infarction, unspecified (principal); E78.5 Hyperlipidemia, unspecified; M25.511 Pain in right shoulder
CPT/HCPCS: 36415; 80048; 80061; 80076; 81003; 84443; 85027

== ENCOUNTER → 2023-08-23 23:59 | Outpatient (BNV) | payer OTHER, SELFPAY ==
--- NOTE | 2023-09-23 12:35 | A.OFFVIS_ITS ---
Intake Visit Reasons: Remote ILR check- [employer] Allergies No Known Allergies Allergy (Verified 08/07/23 06:10) PFSH Medical History (Updated 08/07/23 @ 06:16 by Raj Quinn MD) Hypersomnia Snoring Hyperlipidemia Stroke Surgical History No pertinent past surgical history Family History Father Epilepsy Mother Esophageal cancer Maternal Aunt Breast CA Maternal Aunt Lung cancer Daughter No problems noted. Son No problems noted. 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 No arrhythmias or pauses noted [id number] Cardiac Interrogation, subcut cardiac rhythm monitor Procedure code (CPT) selection complete Assessment & Plan Assessment & Plan (1) Implantable loop recorder present: Code(s): Z95.818 - Presence of other cardiac implants and grafts Category: Medical Plan: See above Coding Level of Care Code Procedure Only Diagnoses Implantable loop recorder present Z95.818 CPT Codes Cardiac Device Check - Cardiac Device 16: [id number] Cardiac Interrogation, subcut cardiac rhythm monitor ([id number])
== END ==
PROVIDERS: PCP Internal Medicine; Visit Provider Internal Medicine Cardiovascular Disease
DX: Z45.09 Encounter for adjustment and management of other cardiac device (principal)
CPT/HCPCS: 93298

== ENCOUNTER → 2023-11-23 23:59 | Outpatient (BNV) | payer OTHER, SELFPAY ==
--- NOTE | 2023-12-15 17:27 | MHC.OFFVIS ---
Intake Visit Reasons: Remote ILR check- [employer] Allergies No Known Allergies Allergy (Verified 08/07/23 06:10) PFSH Medical History (Updated 08/07/23 @ 06:16 by Raj Quinn MD) Hypersomnia Snoring Hyperlipidemia Stroke Surgical History No pertinent past surgical history Family History Father Epilepsy Mother Esophageal cancer Maternal Aunt Breast CA Maternal Aunt Lung cancer Daughter No problems noted. Son No problems noted. 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 No arrhythmias or pauses noted [id number] Cardiac Interrogation, subcut cardiac rhythm monitor Procedure code (CPT) selection complete Assessment & Plan Assessment & Plan (1) Implantable loop recorder present: Code(s): Z95.818 - Presence of other cardiac implants and grafts Category: Medical Plan: See above Coding Level of Care Code Procedure Only Diagnoses Implantable loop recorder present Z95.818 CPT Codes Cardiac Device Check - Cardiac Device 16: [id number] Cardiac Interrogation, subcut cardiac rhythm monitor ([id number])
== END ==
PROVIDERS: PCP Internal Medicine; Visit Provider Internal Medicine Cardiovascular Disease
DX: Z45.09 Encounter for adjustment and management of other cardiac device (principal)
CPT/HCPCS: 93298

== ENCOUNTER 2023-12-17 14:41 | Outpatient (REF) | payer OTHER, SELFPAY ==
[2023-12-17 14:42] VITALS: BP 97/58; PULSE 81; RESP 19; TEMP 36.4; O2SAT 97; BMI 42.1
--- NOTE | 2023-12-17 15:30 | P.BOP_ITS ---
Brief Operative Note Date of Service: 12/17/23 Pre-op diagnosis: ILR is place Post-op diagnosis: same Procedure: Removal of ILR Implants: After obtaining consent patient was placed on the table in supine position. The precordial area was then prepped and draped in sterile fashion. Patient was then given 2% lidocaine with epinephrine over the head of the device intradermally and subcutaneously. A small inciison was then made. The device was then removed the help of a Viviana forcep. The wound was then closed with a steristrip and pressure dressing applied. Surgeon: Carlos Alberto Tamez MD Anesthesia: local Was an Dental Insurance Coordinator used for this Procedure?: No Estimated blood loss (mL): 1 Pathology: none sent Condition: stable Disposition: same day
== END 2023-12-17 14:42 | disposition home or self-care (01) ==
LOC: HO.MS 14:41
PROVIDERS: Visit Provider Internal Medicine Cardiovascular Disease
PROC: (CPT 33286; principal; 2023-12-17 15:00)
DX: Z95.818 Presence of other cardiac implants and grafts (principal)
CPT/HCPCS: 33286; J2004

== ENCOUNTER → 2023-12-17 14:41 | Outpatient (BNV) | payer OTHER, SELFPAY | PROVIDERS: Visit Provider Internal Medicine Cardiovascular Disease | DX: Z45.09 Encounter for adjustment and management of other cardiac device (principal) | CPT/HCPCS: 33286 ==

== ENCOUNTER → 2023-12-24 23:59 | Outpatient (BNV) | payer OTHER, SELFPAY ==
--- NOTE | 2023-12-31 15:43 | A.OFFVIS_ITS ---
Intake Visit Reasons: REmote ILR check- [employer] Allergies No Known Allergies Allergy (Verified 08/07/23 06:10) PFSH Medical History (Updated 08/07/23 @ 06:16 by Raj Quinn MD) Hypersomnia Snoring Hyperlipidemia Stroke Surgical History No pertinent past surgical history Family History Father Epilepsy Mother Esophageal cancer Maternal Aunt Breast CA Maternal Aunt Lung cancer Daughter No problems noted. Son No problems noted. 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 Since then the loop recorder has been explanted. No arrhythmias detected during that time [id number] Cardiac Interrogation, subcut cardiac rhythm monitor Procedure code (CPT) selection complete Assessment & Plan Assessment & Plan (1) Implantable loop recorder present: Code(s): Z95.818 - Presence of other cardiac implants and grafts Category: Medical Plan: See above Coding Level of Care Code Procedure Only Diagnoses Implantable loop recorder present Z95.818 CPT Codes Cardiac Device Check - Cardiac Device 16: [id number] Cardiac Interrogation, subcut cardiac rhythm monitor ([id number])
== END ==
PROVIDERS: Visit Provider Internal Medicine Cardiovascular Disease
DX: Z45.02 Encounter for adjustment and management of automatic implantable cardiac defibrillator (principal)
CPT/HCPCS: 93298

== ENCOUNTER 2024-02-12 07:48 | Outpatient (AMB) | payer OTHER, SELFPAY ==
[2024-02-12 07:56] VITALS: BP 100/80; PULSE 78; O2SAT 98; BMI 19.1
--- NOTE | 2024-02-12 07:56 | A.OFFPC_ITS ---
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 Accompanied by: Self / Same As Patient Allergies No Known Allergies Allergy (Verified 02/12/24 08:00) Tobacco use date assessed: 02/12/24 Dental Screening Dental Screen Date: 02/12/24 Did you have a dental visit in the last 12 months?: No Did you have a dental problem in the last 6 months where you did not have access to dental care?: No Was dental information given to patient?: No [facility] Medical History (Updated 02/12/24 @ 08:20 by Raj Quinn MD) Encounter for colorectal cancer screening using Cologuard test (~12/30/22) Hypersomnia Snoring Hyperlipidemia Stroke Surgical History No pertinent past surgical history Family History Father Epilepsy Mother Esophageal cancer Maternal Aunt Breast CA Maternal Aunt Lung cancer Daughter No problems noted. Son No problems noted. 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 1. Little interest or pleasure in doing things: not at all 2. Feeling down, depressed, or hopeless: not at all 3. Trouble falling or staying asleep, or sleeping too much: not at all 4. Feeling tired or having little energy: not at all 5. Poor appetite or overeating: not at all 6. Feeling bad about yourself - or that you are a failure or have let yourself or your family down: not at all 7. Trouble concentrating on things, such as reading the newspaper or watching television: not at all 8. Moving or speaking so slowly that other people could have noticed. Or the opposite - being so fidgety or restless that you have been moving around a lot more than usual: not at all 9. Thoughts that you would be better off or of hurting yourself in some way: not at all Total score: 0 Depression Screening Interpretation: Negative Depression Screening Done: Yes Source: Developed by Drs. Jordon Spears, Jillian Aldrich, Luisito Hong and colleagues, with an educational abner from [employer]. Thrive Questionnaire Date Thrive assessed: 02/12/24 I am a: Patient What is your living situation today?: I have a steady place to live Within the past 12 months, did the food you bought not last and you didn't have the money to get more?: Never true Within the past 12 months, did you worry whether your food would run out before you got money to buy more?: Never true Do you have trouble paying for medicines?: No Do you have trouble getting transportation to medical appointments?: No Do you have trouble paying your heating and electricity bill?: No Do you have trouble taking care of your child, family member or friend?: No Do you have trouble with day-to-day activities such as bathing, preparing meals, shopping, managing finances, etc.?: No Are you currently unemployed and looking for a job?: No Are you interested in more education?: No Please select the resources that you would like help with: None Currently or been in a relationship where the following occur: No concerns reported THRIVE Score: 0 AUDIT C Alcohol Use Questionnaire (AUDIT-C) 1. How often do you have a drink containing alcohol?: Never Total Score: 0 SUNITA-7 AMB Questionnaire SUNITA-7 Date SUNITA - 7 assessed: 02/12/24 Feeling nervous, anxious, or on edge: 0 = Not at all Not being able to stop or control worryin = Not at all Worrying too much about different things: 0 = Not at all Trouble relaxin = Not at all Being so restless that it is hard to sit still: 0 = Not at all Becoming easily annoyed or irritable: 0 = Not at all Feeling afraid as if something awful might happen: 0 = Not at all Total SUNITA-7 score (0-4 normal; 5-9 mild; 10-14 moderate; 15-21 severe): 0 Source: Developed by Drs. Jordon Spears, Jillian Aldrich, Luisito Hong and colleagues, with an educational abner from [employer]. Physical exam (Primary Care) Vital Signs: Last Vital Signs Pulse 78 02/12/24 07:56 BP 100/80 02/12/24 07:56 Pulse Ox 98 02/12/24 07:56 Oxygen Delivery Method Room Air 02/12/24 07:56 BMI result Body Mass Index 19.1 Tobacco/Smoking Status: Tobacco use Status Tobacco use date assessed 02/12/24 02/12/24 08:00 Patient Tobacco Use Status Never used Tobacco 02/12/24 08:00 e-Cigarette/Vaping Use Never Used 02/12/24 08:00 PHQ-9: PHQ-9 Score PHQ-9: Total score 0 02/12/24 08:00 Depression Screening Interpretation: Negative Thrive Assessment: Date of Thrive Assessment Date Thrive assessed 02/12/24 02/12/24 08:00 Currently or been in a relationship where the following occur: No concerns reported Coding Level of Care Code Est Pt Level 4 (21792) Complex EM visit Add On G2211 Diagnoses Sprain of left shoulder S43.402A Stroke I63.9 Rotator cuff injury S46.009A Hyperlipidemia E78.5 Assessment & Plan Assessment & Plan (1) Sprain of left shoulder: Code(s): S43.402A - Unspecified sprain of left shoulder joint, initial encounter Plan: Physical therapy for left shoulder suggested. Use OTC tylenol for pain relief. (2) Stroke: Code(s): I63.9 - Cerebral infarction, unspecified Category: Medical Plan: Patient is asymptomatic. Will consider if Plavix can be discontinued. (3) Rotator cuff injury: Code(s): S46.009A - Unspecified injury of muscle(s) and tendon(s) of the rotator cuff of unspecified shoulder, initial encounter Category: Medical (4) Hyperlipidemia: Code(s): E78.5 - Hyperlipidemia, unspecified Category: Medical Plan: Blood work ordered. Will call with results. Plan History of Present Illness The patient is a 53-year-old male presenting with painful shoulder impingement and management of long-term medications. He has a history of stroke with ongoing difficulty in finding words. Currently, he reports significant pain in his left shoulder despite previous physical therapy, which initially improved his condition. He notes that lifting his arms exacerbates the pain, and sometimes it affects his sleep and demeanor. 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 In addition, he requires guidance regarding ongoing medications, including clopidogrel and aspirin, particularly in the context of upcoming dental work for which he currently has no scheduled appointment. There is also mention of past improvement after receiving a cortisone injection for his shoulder pain, which he reports as very beneficial. He expresses concern about the cost of dental treatments and has not had these concerns addressed due to holiday season commitments. 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 - Reports feeling fortunate compared to a friend with more severe post-stroke disabilities. - Encountered difficulties scheduling dental treatment due to cost and busyness during holidays. Review of Systems - Neurological: Reports dysphasia (difficulty finding words). Physical Exam General: Appearance normal, both eyes and all related structures Nutritional Appearance: Well nourished Orientation/consciousness: Patient oriented x3 Limitations: Limitations in lifting arms due to shoulder pain Head: Normal to inspection Neck: Normal visual inspection Chest: Normal palpation of entire chest wall Respiratory: Normal respiratory effort Neurology: Patient oriented x3, some difficulty finding words due to past stroke Results - Tests and Diagnostics: Cologuard test was negative. Plan - The patient is advised to consider physical therapy for the right shoulder to address impingement and related symptoms. - Discuss the potential benefits of a cortisone injection if shoulder pain persists or worsens. - For dental procedures, the patient is informed he can safely interrupt clopidogrel a few days before and resume it post-procedure. - Continue current medications for antiplatelet therapy unless advised otherwise by cardiology. Patient was informed and verbally consented to the use of an ambient scribe for clinic note documentation during this visit. Discussion Notes I discussed with the patient the management of his shoulder pain, emphasizing the potential benefit of restarting physical therapy and the possible use of cortisone injections should symptoms worsen. We reviewed his medication regimen, particularly the safe pause of clopidogrel in preparation for dental procedures. 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 He expressed understanding of the plan and agreed with the proposed management steps. Additionally, we touched upon the emotional impact of his condition, particularly concerning workplace limitations and the stress related to holiday financial constraints. The importance of regular blood work and follow-ups was highlighted. Patient Instructions - Schedule an appointment for physical therapy to address shoulder pain. - Discuss with your dentist the timing of antiplatelet medication adjustment before any procedures. - Continue taking your prescribed medications, unless a healthcare provider advises any changes. - Remember to fast before your next blood work, avoiding coffee and food after midnight. - Consider costs and scheduling for upcoming dental treatments and plan accordingly. Orders: Orders PT Evaluation and Treatment Today S43.402A - Unspecified sprain of left shoulder joint, initial encounter Complete Blood Count no Diff Today E78.5 - Hyperlipidemia, unspecified, S46.009A - Unspecified injury of muscle(s) and tendon(s) of the rotator cuff of unspecified shoulder, initial encounter Lipid Panel Today E78.5 - Hyperlipidemia, unspecified, S46.009A - Unspecified injury of muscle(s) and tendon(s) of the rotator cuff of unspecified shoulder, initial encounter Liver Panel Today E78.5 - Hyperlipidemia, unspecified, S46.009A - Unspecified injury of muscle(s) and tendon(s) of the rotator cuff of unspecified shoulder, initial encounter Thyroid Stimulating Hormone Today E78.5 - Hyperlipidemia, unspecified, S46.009A - Unspecified injury of muscle(s) and tendon(s) of the rotator cuff of unspecified shoulder, initial encounter UA and rflx microscopic Today E78.5 - Hyperlipidemia, unspecified, S46.009A - Unspecified injury of muscle(s) and tendon(s) of the rotator cuff of unspecified shoulder, initial encounter
== END 2024-02-12 11:48 | disposition home or self-care (01) ==
PROVIDERS: PCP Internal Medicine; Visit Provider Internal Medicine
DX: S43.402A Unspecified sprain of left shoulder joint, initial encounter (principal); I63.9 Cerebral infarction, unspecified; S46.009A Unspecified injury of muscle(s) and tendon(s) of the rotator cuff of unspecified shoulder, initial encounter; E78.5 Hyperlipidemia, unspecified

== ENCOUNTER 2024-02-25 09:00 | Outpatient (REF) | payer OTHER, SELFPAY ==
[2024-02-25 09:30] LABS: Hematocrit 44.2 % (42.0-52.0); Hemoglobin 14.9 g/dl (14.0-18.0); Mean Corpuscular HGB Conc 33.7 g/dl (31.0-36.0); Mean Corpuscular Hemoglobin 30.9 pg (27.0-33.0); Mean Corpuscular Volume 91.7 fL (80.0-98.0); Mean Platelet Volume 8.5 fL (9.4-12.4); Platelet Count 315 X10*3/uL (160-400); Red Blood Count 4.82 X10*6/uL (4.60-5.80); Red Cell Distribution Width 13.3 % (11.0-16.0); White Blood Count 7.3 X10*3/uL (4.8-10.8)
[2024-02-25 09:44] LABS: Appearance Urine Clear; Color Urine Yellow; Glucose Urine UA Negative (Negative); Leukocyte Esterase Urine Negative (Negative); Nitrite Urine Negative (Negative); Urine Blood Negative (Negative); Urine Ketones Negative (Negative); Urine Protein Trace mg/dL (Neg-Trace)
[2024-02-25 10:15] LABS: Alanine Aminotransferase 22 U/L (0-40); Albumin Level 4.2 g/dL (3.5-5.0); Alkaline Phosphatase 108 U/L (39-117); Aspartate Amino Transferase 37 U/L (5-37); Bilirubin Direct 0.1 mg/dL (0.0-0.5); Bilirubin Total 0.4 mg/dL (0.0-1.0); Cholesterol 109 mg/dL (<200); HDL Cholesterol 37 mg/dL (>40); LDL Cholesterol Calculated 55 mg/dL (<100); Total Protein 7.4 g/dL (6.5-8.0); Triglycerides 88 mg/dL (<150)
[2024-02-25 10:21] LABS: Thyroid Stimulating Hormone 2.81 uIU/mL (0.32-4.0)
== END 2024-02-25 09:01 | disposition home or self-care (01) ==
LOC: HO.LAB 09:00
PROVIDERS: PCP Internal Medicine; Visit Provider Internal Medicine
DX: S00.522A Blister (nonthermal) of oral cavity, initial encounter (principal); K05.10 Chronic gingivitis, plaque induced; E78.5 Hyperlipidemia, unspecified; S46.009A Unspecified injury of muscle(s) and tendon(s) of the rotator cuff of unspecified shoulder, initial encounter; X58.XXXA Exposure to other specified factors, initial encounter; Y93.9 Activity, unspecified; Y92.9 Unspecified place or not applicable; Y99.9 Unspecified external cause status
CPT/HCPCS: 36415; 80061; 80076; 81003; 84443; 85027; 96127

== ENCOUNTER 2024-02-25 09:37 | Outpatient (AMB) | payer OTHER, SELFPAY ==
[2024-02-25 09:39] VITALS: BP 116/80; PULSE 66; TEMP 36.3; O2SAT 98; BMI 19.3
--- NOTE | 2024-02-25 09:39 | A.OFFPC_ITS ---
Vital Signs 02/25/24 09:39 Height 5 ft 7 in Weight 123 lb BMI 19.3 BP 116/80 Blood Pressure Location Lt brachial Position Sitting Pulse 66 Pulse Source Pulse Oximeter Temp 97.3 F Temp Source Temporal Artery Scan Pulse Oximetry (%) 98 Oxygen Delivery Method Room Air Intake Visit Reasons: dental infection Bronc Breaker Required: No Accompanied by: Self / Same As Patient Allergies No Known Allergies Allergy (Verified 02/25/24 10:33) Medication List - Last Reconciled 02/25/[address] amoxicillin 500 mg PO Q8H 7 days aspirin 81 mg PO DAILY 90 days atorvastatin 80 mg PO BEDTIME clopidogrel 75 mg PO DAILY Tobacco use date assessed: 02/25/24 Dental Screening Dental Screen Date: 02/25/24 Did you have a dental visit in the last 12 months?: Yes Did you have a dental problem in the last 6 months where you did not have access to dental care?: No Was dental information given to patient?: Patient has dentist HPI dental infection HPI Details The patient is a 53-year-old male with significant past medical history anxiety, CVA, hyperlipidemia, rotator cuff injury The patient is presenting today for dental pain/infection He is a patient of Dr. Hernandez. He was last seen on 02/12/2024 Patient reports that he was told to see dentist on his last visit Patient reports that he has been having mouth discomfort for a while now -For a couple of weeks the pain has been increasing He reports going to [facility]-but they are out of his [place] range ($ 4000). Reports seeing blood when brushing teeth intermittently, he denies any exudate, just swollen inflamed gums. Reports that he has been unable to eat solid foods. He denies fever or chills, shortness of breaths, chest pain, current problem or dizziness [facility] Medical History (Updated 02/25/24 @ 11:[address]) Encounter for colorectal cancer screening using Cologuard test (~12/30/22) Hypersomnia Snoring Hyperlipidemia Stroke Surgical History No pertinent past surgical history Family History Father Epilepsy Mother Esophageal cancer Maternal Aunt Breast CA Maternal Aunt Lung cancer Daughter No problems noted. Son No problems noted. 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 1. Little interest or pleasure in doing things: not at all 2. Feeling down, depressed, or hopeless: not at all 3. Trouble falling or staying asleep, or sleeping too much: not at all 4. Feeling tired or having little energy: not at all 5. Poor appetite or overeating: not at all 6. Feeling bad about yourself - or that you are a failure or have let yourself or your family down: not at all 7. Trouble concentrating on things, such as reading the newspaper or watching television: not at all 8. Moving or speaking so slowly that other people could have noticed. Or the opposite - being so fidgety or restless that you have been moving around a lot more than usual: not at all 9. Thoughts that you would be better off or of hurting yourself in some way: not at all Total score: 0 Depression Screening Interpretation: Negative Depression Screening Done: Yes 14725 - PHQ-9 Billing: Yes Source: Developed by Drs. Jordon Spears, Jillian Aldrich, Luisito Hong and colleagues, with an educational abner from [employer]. Thrive Questionnaire Date Thrive assessed: 02/25/24 I am a: Patient What is your living situation today?: I have a steady place to live Within the past 12 months, did the food you bought not last and you didn't have the money to get more?: Never true Within the past 12 months, did you worry whether your food would run out before you got money to buy more?: Never true Do you have trouble paying for medicines?: No Do you have trouble getting transportation to medical appointments?: No Do you have trouble paying your heating and electricity bill?: No Do you have trouble taking care of your child, family member or friend?: No Do you have trouble with day-to-day activities such as bathing, preparing meals, shopping, managing finances, etc.?: No Are you currently unemployed and looking for a job?: No Are you interested in more education?: No Please select the resources that you would like help with: None Currently or been in a relationship where the following occur: No concerns reported THRIVE Score: 0 AUDIT C Alcohol Use Questionnaire (AUDIT-C) 1. How often do you have a drink containing alcohol?: Never 3. How often do you have six or more drinks on one occasion?: Never Total Score: 0 Score Reviewed/Action Taken: Yes SUNITA-7 AMB Questionnaire SUNITA-7 Date SUNITA - 7 assessed: 02/25/24 Feeling nervous, anxious, or on edge: 0 = Not at all Not being able to stop or control worryin = Not at all Worrying too much about different things: 0 = Not at all Trouble relaxin = Not at all Being so restless that it is hard to sit still: 0 = Not at all Becoming easily annoyed or irritable: 0 = Not at all Feeling afraid as if something awful might happen: 0 = Not at all Total SUNITA-7 score (0-4 normal; 5-9 mild; 10-14 moderate; 15-21 severe): 0 Source: Developed by Drs. Jordon Spears, Jillian Aldrich, Luisito Hong and colleagues, with an educational abner from [employer]. SUNITA-7 Assessment Billing SUNITA-7 Assessment Tool: SUNITA-7 Assessment 38764 Review of Systems Const Details: Denies chills, Denies fatigue, Denies fever(s), Denies headache(s) and Denies weakness HEENT Denies change in vision, Denies dizziness, Denies headache(s), Denies hearing loss, Denies nasal congestion, Denies sinus pain, Denies sinus pressure and Denies sore throat Mouth: reports that he has a gum/teeth infection with mouth pain Card Denies chest pain, Denies lightheadedness, Denies dyspnea and Denies other (palpitations) Resp Denies cough, Denies dyspnea and Denies wheezing GI Denies abdominal pain, Denies melena, Denies hematochezia, Denies change in bowel habits, Denies dyspepsia and Denies nausea Denies hematuria and Denies dysuria Musc Denies abnormal gait, Denies myalgias, Denies arthralgias, Denies numbness and Denies tingling Skin/Breast Denies rash, Denies unusual bruising and Denies wounds Neuro Denies abnormal gait, Denies dizziness, Denies headache(s), Denies memory loss, Denies numbness, Denies Sensory deficit (Neuro), Denies tingling and Denies weakness Psych Denies anxiety, Denies depression and Denies memory loss Endo Denies cold intolerance, Denies fatigue, Denies heat intolerance, Denies polydipsia and Denies polyuria Nixon/Lymph Denies easy bleeding and Denies easy bruising Aller/Immun Denies wheezing Physical exam (Primary Care) Vital Signs: Last Vital Signs Temp 97.3 F 02/25/24 09:39 Pulse 66 02/25/24 09:39 BP 116/80 02/25/24 09:39 Pulse Ox 98 02/25/24 09:39 Oxygen Delivery Method Room Air 02/25/24 09:39 BMI result Body Mass Index 19.3 Tobacco/Smoking Status: Tobacco use Status Tobacco use date assessed 02/25/24 02/25/24 09:44 Patient Tobacco Use Status Never used Tobacco 02/25/24 09:44 e-Cigarette/Vaping Use Never Used 02/25/24 09:44 PHQ-9: PHQ-9 Score PHQ-9: Total score 0 02/25/24 10:20 Depression Screening Interpretation: Negative Thrive Assessment: Date of Thrive Assessment Date Thrive assessed 02/25/24 02/25/24 09:44 Currently or been in a relationship where the following occur: No concerns reported Const Other: General: no acute distress, well developed, alert and awake Nutritional Appearance: well nourished Orientation/consciousness: patient oriented x3 HENMT Head: Yes normocephalic and Yes atraumatic Ears: hearing grossly normal bilaterally and TM's normal bilaterally General nose exam: Normal external nose present and Normal nares present Mouth:bilateral lower gums inflamed and swollen. No extudate noted Teeth and gingiva: dentition poor-with multiple darken areas on teeth Throat: Yes oropharynx normal Eyes Pupils: Equal, round and reactive pupils present and Pupil accommodation reflex normal EOM: EOMs intact bilaterally Neck Neck: Yes normal visual inspection, Yes no lymphadenopathy and Yes trachea midline Thyroid: Thyroid normal Carotids: no bruits Lymphatic: no lymphadenopathy noted Chest Chest palpation & inspection: normal inspection of the chest Resp Effort & Inspection: normal respiratory effort Auscultation: clear to auscultation bilaterally Cardio Rate: regular rate Rhythm: regular rhythm Heart sounds: S1 normal heart sound present, S2 normal heart sound present, no gallops, no murmurs and no rubs Bruits: no abdominal aortic bruits and no carotid bruits GI Palpation (GI): Soft to palpation, nontender, No hepatosplenomegaly present and No Rebound tenderness present Auscultation: normal bowel sounds General: Yes no CVA tenderness Back/Spine/Pelvis Back: no CVA tenderness Skin General: warm and dry. Normal skin color Nails: normal Neuro General: patient oriented x3, gait normal Cranial nerves: Yes Equal, round and reactive pupils present Cognition (Neuro): normal cognition Gait exam (Neuro): Normal gait present Extrem General: Yes normal to inspection, No edema and No calf tenderness Psych Appearance: grossly normal Affect: normal affect Attitude: cooperative-but irritated Thought process: Normal thought process present Results Reviewed Results Reviewed: Laboratory Tests 02/25/24 09:17 WBC 7.3 RBC 4.82 Hgb 14.9 Hct 44.2 MCV 91.7 RDW 13.3 Plt Count 315 Coding Level of Care Code Est Pt Level 3 (54709) Diagnoses Blister of gingiva with infection, initial encounter S00.522A; K05.10 Encounter type: initial encounter Additional Codes SUNITA-7 Assessment Billing - SUNITA-7 Assessment Tool: SUNITA-7 Assessment 82007 ([id number]) PHQ-9 - 49553 - PHQ-9 Billing: Yes ([id number]) Time Spent (min) 21 Assessment & Plan Assessment & Plan (1) Blister of gum with infection: Code(s): S00.522A - Blister (nonthermal) of oral cavity, initial encounter; K05.10 - Chronic gingivitis, plaque induced Category: Medical Qualifiers: Encounter type: initial encounter Qualified Code(s): S00.522A - Blister (nonthermal) of oral cavity, initial encounter; K05.10 - Chronic gingivitis, plaque induced Plan: Patient bilateral lower gums are inflamed and swollen --poor dentition: Multiple areas of teeth decay Ordered amoxicillin 500 mg q.8 hours x7 days Discussed with patient that this is a temporary fix and he needs to see a dentist Patient verbalized understanding and said he will work on seeing a dentist HEATHER. Plan To return as scheduled in August 2024 for his annual physical examination with his PCP Medications: New amoxicillin 500 mg PO Q8H 21 caps 0RF 7 days K05.10 - Chronic gingivitis, plaque induced, S00.522A - Blister (nonthermal) of oral cavity, initial encounter
== END 2024-02-25 10:34 | disposition home or self-care (01) ==
PROVIDERS: PCP Internal Medicine
DX: S00.522A Blister (nonthermal) of oral cavity, initial encounter (principal); K05.10 Chronic gingivitis, plaque induced

== ENCOUNTER 2024-04-15 08:00 | Outpatient (RCR) | payer OTHER, SELFPAY ==
--- NOTE | 2024-03-05 07:51 | MHC.PT.EP ---
[facility] [place] [facility] [place] [facility] [place] [facility] [address] Epi Ontiveros [address] [phone] F: [phone] F: [phone] F: [phone] F: [phone] Physical Therapy Plan of Care Date of Evaluation: 03/05/24 Date of Surgery: Diagnosis: strain of L shoulder Assessment: 53 y/o R hand dominant male referred to PT with L shoulder strain. He presents with s/s consistent with impingement resulting in pain and difficulty with lifting, reaching overhead, work duties at [employer], and sleeping. Examination shows decreased shoulder/ scapular strength, atrophy supraspinatus fossa and scapular winging, poor scapulohumeral rhythm, and impaired postural awareness. Recommend PT 2x/week for 5 weeks however he has high co-pay so we trial 1x/wee for 5 weeks to develop excellent HEP, address impairments, and optimize function Frequency and Duration: The patient will be seen 1x/week for 5 weeks Short Term Goals: 3 weeks I with HEP Pt will demosntrate non painful arc with shoulder flexion Contract Implementation Analyst Goals: 5 weeks I with HEP and self management of sx Pt will report > 50% improvement in sleeping (current up 75% of the evening) Pt will reports > 50% decrease in pain with work duties (ranges 6-10) Treatment Plan: Modalities to reduce pain, spasms and effusion. Manual therapy to restore motion and function. Therapeutic exercise to improve strength and flexibility. Neuromuscular re-education for posture and balance. Therapeutic activities to return to functional activities of daily living. Electronically signed by: Venessa Ruffin PT Please sign and return to therapist. Thank you for your referral.
--- NOTE | 2024-04-16 09:40 | MHC.PT.DC ---
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 Reports improved sleeping as well. His shoulder ROM is WFL and strength grossly 4+/5 in shoulders. He is I with HEP and appropriate for d/c at this time Electronically signed by: Venessa Ruffin PT Please sign and return to therapist. Thank you for your referral.
== END 2024-04-16 09:40 | disposition home or self-care (01) ==
LOC: HO.PTCHIC 08:00
PROVIDERS: PCP Internal Medicine; Visit Provider Internal Medicine
DX: S43.402D Unspecified sprain of left shoulder joint, subsequent encounter (principal)
CPT/HCPCS: 97110; 97140; 97161

== ENCOUNTER 2024-11-24 13:39 | Outpatient (AMB) | payer OTHER, SELFPAY ==
--- NOTE | 2024-11-24 13:44 | A.OFFPC_ITS ---
Vital Signs 11/24/24 13:45 Height 5 ft 7 in Weight 117 lb 6 oz BMI 18.4 BP 112/70 Blood Pressure Location Lt brachial Position Sitting Pulse 73 Pulse Source Pulse Oximeter Temp 97.3 F Temp Source Temporal Artery Scan Pulse Oximetry (%) 100 Oxygen Delivery Method Room Air Intake Visit Reasons: annual exam Intake Note: Patient is here today for a physical. Discuss Liptor recall question Elevator Constructor Electric Required: No Head Sawyer Automatic: Not Required per policy Accompanied by: Self / Same As Patient Allergies No Known Allergies Allergy (Verified 11/24/24 13:45) Tobacco use date assessed: 11/24/24 Dental Screening Dental Screen Date: 02/25/24 [facility] Medical History (Updated 02/25/24 @ 11:[address]) Encounter for colorectal cancer screening using Cologuard test (~12/30/22) Hypersomnia Snoring Hyperlipidemia Stroke Surgical History No pertinent past surgical history Family History Father Epilepsy Mother Esophageal cancer Maternal Aunt Breast CA Maternal Aunt Lung cancer Daughter No problems noted. Son No problems noted. 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 1. Little interest or pleasure in doing things: not at all 2. Feeling down, depressed, or hopeless: not at all 3. Trouble falling or staying asleep, or sleeping too much: more than half the days 4. Feeling tired or having little energy: several days 5. Poor appetite or overeating: several days 6. Feeling bad about yourself - or that you are a failure or have let yourself or your family down: not at all 7. Trouble concentrating on things, such as reading the newspaper or watching television: not at all 8. Moving or speaking so slowly that other people could have noticed. Or the opposite - being so fidgety or restless that you have been moving around a lot more than usual: not at all 9. Thoughts that you would be better off or of hurting yourself in some way: not at all Total score: 4 Depression Screening Interpretation: Positive Depression Screening Done: Yes Source: Developed by Drs. Jordon Spears, Jillian Aldrich, Luisito Hong and colleagues, with an educational abner from [employer]. Thrive Questionnaire Date Thrive assessed: 02/25/24 I am a: Patient What is your living situation today?: I have a steady place to live Within the past 12 months, did the food you bought not last and you didn't have the money to get more?: I choose not to answer this question Within the past 12 months, did you worry whether your food would run out before you got money to buy more?: I choose not to answer this question Do you have trouble paying for medicines?: I choose not to answer this question Do you have trouble getting transportation to medical appointments?: No Do you have trouble paying your heating and electricity bill?: I choose not to answer this question Do you have trouble taking care of your child, family member or friend?: I choose not to answer this question Do you have trouble with day-to-day activities such as bathing, preparing meals, shopping, managing finances, etc.?: I choose not to answer this question Are you currently unemployed and looking for a job?: I choose not to answer this question Are you interested in more education?: I choose not to answer this question Please select the resources that you would like help with: None Currently or been in a relationship where the following occur: I choose not to answer THRIVE Score: 0 AUDIT C Alcohol Use Questionnaire (AUDIT-C) 1. How often do you have a drink containing alcohol?: Never Total Score: 0 SUNITA-7 AMB Questionnaire SUNITA-7 Date SUNITA - 7 assessed: 02/25/24 Feeling nervous, anxious, or on edge: 1 = Several days Not being able to stop or control worryin = Several days Worrying too much about different things: 1 = Several days Trouble relaxin = Several days Being so restless that it is hard to sit still: 1 = Several days Becoming easily annoyed or irritable: 1 = Several days Feeling afraid as if something awful might happen: 1 = Several days Total SUNITA-7 score (0-4 normal; 5-9 mild; 10-14 moderate; 15-21 severe): 7 Source: Developed by Drs. Jordon Spears, Jillian Aldrich, Luisito Hong and colleagues, with an educational abner from [employer]. Physical exam (Primary Care) Vital Signs: Last Vital Signs Temp 97.3 F 11/24/24 13:45 Pulse 73 11/24/24 13:45 BP 112/70 11/24/24 13:45 Pulse Ox 100 11/24/24 13:45 Oxygen Delivery Method Room Air 11/24/24 13:45 BMI result Body Mass Index 18.4 Tobacco/Smoking Status: Tobacco use Status Tobacco use date assessed 11/24/24 11/24/24 13:49 Patient Tobacco Use Status Never used Tobacco 11/24/24 13:49 e-Cigarette/Vaping Use Never Used 11/24/24 13:49 PHQ-9: PHQ-9 Score PHQ-9: Total score 4 11/24/24 13:49 Depression Screening Interpretation: Positive Thrive Assessment: Date of Thrive Assessment Date Thrive assessed 02/25/24 11/24/24 13:49 Currently or been in a relationship where the following occur: I choose not to answer Coding Level of Care Code Est Pt Prev Care 40-64y(38812) Diagnoses Hyperlipidemia E78.5 Annual physical exam Z00.00 Assessment & Plan Assessment & Plan (1) Hyperlipidemia: Code(s): E78.5 - Hyperlipidemia, unspecified Category: Medical Plan: Blood work has been ordered. Will call with results (2) Annual physical exam: Code(s): Z00.00 - Encounter for general adult medical examination without abnormal findings Plan: History of Present Illness - The patient is a 54-year-old male presenting for a wellness visit and management of chronic conditions. - Shoulder pain: Previously diagnosed with arthritis, the patient experiences i ntermittent significant pain, primarily on the left side, affecting sleep. - Relief has been achieved through physical therapy and corticosteroid injections. - Hyperlipidemia: The patient is adherent to statin therapy. - Cardiovascular disease: The patient is on aspirin therapy for heart-related issues. - Preventative care: Completed a negative Cologuard test in December 2022, with plans for future colonoscopy screening. - Social history: Reports marijuana use, denies alcohol consumption, and engages in minimal exercise. Social History - Employment: Recently changed jobs to reduce commute time. - Exercise: Engages in minimal physical activity. - Substance use: Reports smoking marijuana, denies alcohol use. Review of Systems - Musculoskeletal: Reports intermittent shoulder pain, denies current pain. - Gastrointestinal: Denies abdominal pain. Physical Exam General: Cooperative and healthy appearing Nutritional Appearance: Well nourished Orientation/consciousness: Patient oriented x3 Limitations: No limitations Head: Normal to inspection General: Appearance normal, both eyes and all related structures Neck: Normal visual inspection Chest: Normal palpation of entire chest wall Respiratory: Normal respiratory effort Neurology: Patient oriented x3 Results - Labs: Cologuard test completed in December 2022, negative result. Plan - Refer to orthopedics for shoulder evaluation and possible corticosteroid injection. - Continue statin therapy for hyperlipidemia. - Continue aspirin therapy for cardiovascular disease. - Order blood work to update lab results, instruct patient to fast before testing. - Administer influenza vaccination during the visit. Discussion Notes I discussed with the patient the plan to refer him to orthopedics for further evaluation of his shoulder pain and the possibility of receiving a corticosteroid injection to improve his symptoms. We reviewed his current medication regimen, including statin and aspirin therapy, and confirmed his adherence. I advised him to continue these medications as prescribed. We also discussed the importance of updating his blood work and the need to fast before the test. Additionally, I recommended receiving the influenza vaccination during today's visit to prevent seasonal flu. Patient Instructions - Follow up with orthopedics for shoulder evaluation and possible injection. - Continue taking your statin and aspirin as prescribed. - Get your blood work done after fasting; do not eat or drink anything except water after midnight before the test. - Receive your flu shot today to protect against the flu. Orders: Orders Basic Metabolic Panel Today E78.5 - Hyperlipidemia, unspecified Lipid Panel Today E78.5 - Hyperlipidemia, unspecified Liver Panel Today E78.5 - Hyperlipidemia, unspecified Complete Blood Count no Diff Today E78.5 - Hyperlipidemia, unspecified Erythrocyte Sedimentation Rate Today E78.5 - Hyperlipidemia, unspecified Thyroid Stimulating Hormone Today E78.5 - Hyperlipidemia, unspecified UA and rflx microscopic Today E78.5 - Hyperlipidemia, unspecified
[2024-11-24 13:45] VITALS: BP 112/70; PULSE 73; TEMP 36.3; O2SAT 100; BMI 18.4
--- OUTSIDE RECORDS SUMMARY | 2024-11-24 17:24 | XMS_ITS | Clinical Summary ---
Author Organization [facility] Address [address] [place] [address] Phone Care Team Providers Care Roll Up Operator Name Role Phone Unknown, Unknown Primary Care Provider Arjun lawson Allergies No known active allergies Medications No known medications Active Problems No known active problems Social History Tobacco Use Types Packs/Day Years Used Date Smoking Tobacco: Never Assessed Education Answer Date Recorded Are you interested in more education? Not on yani e 06/07/2022 Are you concerned about learning? Not on file 06/07/2022 No 06/07/2022 No 06/07/2022 Digital Access Answer Date Recorded No 07/06/2022 No 07/06/2022 No 07/06/2022 Reliable internet access at home? Not on file 07/06/2022 Device with a working camera? Not on file Sex and Gender Information Value Date Recorded Sex Assigned at Not on file Legal Sex Male 9:35 PM EDT Gender Identity Not on file Sexual Orientation Not on file Last Filed Vital Signs Vital Sign Reading Time Taken Comments Blood Pressure 120/70 04/02/2017 6:55 PM EST Pulse 110 04/02/2017 6:55 PM EST Temperature 36.8 C (98.3 F) 04/02/2017 6:55 PM EST Respiratory Rate - - Oxygen Saturation 99% 04/02/2017 6:55 PM EST Inhaled Oxygen Concentration - - Weight 56.7 kg (125 lb) 04/02/2017 6:55 PM EST Height 170.2 cm (5' 7 ) 04/02/2017 6:55 PM EST Body Mass Index 19.58 04/02/2017 6:55 PM EST Plan of Treatment Health Maintenance Due Date Last Done Comments Adult Td,Tdap Booster 1969 LIPID PANEL 1969 DEPRESSION SCREENING 1981 SMOKING Hx and SMOKELESS TOB ACCO SCREENING 1982 HEPATITIS C SCREENING 08/02/1987 HIV ONE-TIME SCREENING (18-6 5 YEARS) 08/02/1987 COLOGUARD 2014 COLONOSCOPY 2014 COLORECTAL CANCER SCREENING 2014 FIT TEST 2014 FOBT 2014 SIGMOIDOSCOPY 2014 VIRTUAL COLONOSCOPY 2014 PNEUMOCOCCAL VACCINES (50+ y ears) (1 of 1 - PCV) 08/02/2019 ZOSTER VACCINES (1 of 2) 08/02/2019 INFLUENZA VACCINE (#1) 2024 COVID-19 VACCINE (2 - 2024-2 6 season) 2024 05/09/2020 RSV VACCINE (1 - 1-dose 75+ series) 2044 HEPATITIS A VACCINES Aged Out No long er eligible based on patient's age to complete this topic HIB VACCINES Aged Out No longer eligi ble based on patient's age to complete this topic MENINGOCOCCAL VACCINES (ACWY) Aged Out No longer eligible based on patient's age to complete this topic MENINGOCOCCAL VACCINES (B) Aged Out N o longer eligible based on patient's age to complete this topic Medical Devices Not on file Insurance [facility] PPO BLUE CROSS OUT OF STATE PPO BLUE CROSS OUT OF STATE PPO BLUE CROSS OUT OF STATE [place] [address] [place] [address] [address] [place] [address] [place] [address] OUT OF [facility] PPO BLUE CROSS OUT OF STATE PPO Member Subscriber Plan / Payer (Ef fective 2014-Present) Name:Chauncey Saleem Relation to Subscriber:Spouse Name:DAVIDAUBREEESTELLA Date of :1900 (Home) Address: [address] [place] [address] Payer ID:[id number] (NAIC) Type:PPO Address: [address] [place] [phone] BLUE CROSS OUT OF STATE PPO BLUE CROSS OUT OF STATE PPO Care Teams Roll Up Operator Relationship Specialty Start Date End Date Unknown, Unknown, PCP - General 04/02/17 Additional Source Comments The information contained in this document represents components of the legal health record. It is not the complete legal health record.[facility]
== END 2024-11-24 14:20 | disposition home or self-care (01) ==
LOC: HO.HMCH 13:40
PROVIDERS: PCP Internal Medicine; Visit Provider Internal Medicine
DX: E78.5 Hyperlipidemia, unspecified (principal); Z00.00 Encounter for general adult medical examination without abnormal findings; Z23 Encounter for immunization

== ENCOUNTER → 2024-11-24 13:39 | Outpatient (BNVA) | payer OTHER, SELFPAY | PROVIDERS: PCP Internal Medicine; Visit Provider Internal Medicine | DX: Z00.00 Encounter for general adult medical examination without abnormal findings (principal); E78.5 Hyperlipidemia, unspecified; M19.012 Primary osteoarthritis, left shoulder; Z23 Encounter for immunization | CPT/HCPCS: 90471; 90656; 96127 ==

== ENCOUNTER 2024-12-08 07:52 | Outpatient (REF) | payer OTHER, SELFPAY ==
--- OUTSIDE RECORDS SUMMARY | 2024-12-08 07:55 | XMS_ITS | Clinical Summary ---
Author Organization [facility] Address [address] [place] [address] Phone Care Team Providers Care County Historian Name Role Phone Unknown, Unknown Primary Care [...] topic Medical Devices Not on file Insurance [facility] PPO BLUE CROSS OUT OF STATE PPO BLUE CROSS OUT OF STATE PPO BLUE CROSS OUT OF [place] [address] [place] [address] [address] [place] [address] [place] [address] OUT OF [facility] PPO BLUE CROSS OUT OF STATE PPO Member Subscriber Plan / Payer (Ef fective 2014-Present) Name:Chauncey Saleem Relation to Subscriber:Spouse Name:DAVIDAUBREEESTELLA Date of :1901 (Home) Address: [address] [place] [address] Payer ID:[id number] (NAIC) Type:PPO Address: [address] [place] [phone] BLUE CROSS OUT OF STATE PPO BLUE CROSS OUT OF STATE PPO Care Teams County Historian Relationship Specialty Start Date End Date Unknown, Unknown, PCP - General 04/02/17 Additional Source Comments The information contained in this document represents components of the legal health record. It is not the complete legal health record.[facility]
[2024-12-08 08:25] LABS: Hematocrit 44.2 % (42.0-52.0); Hemoglobin 14.5 g/dl (14.0-18.0); Mean Corpuscular HGB Conc 32.8 g/dl (31.0-36.0); Mean Corpuscular Hemoglobin 30.3 pg (27.0-33.0); Mean Corpuscular Volume 92.5 fL (80.0-98.0); NRBC Abs Auto 0.000 X10*3/uL (0.0-0.012); NRBC Pct Auto 0.0 /100WBC (0.0-0.2); Platelet Count 328 X10*3/uL (160-400); Red Blood Count 4.78 X10*6/uL (4.60-5.80); White Blood Count 8.6 X10*3/uL (4.8-10.8)
[2024-12-08 09:04] LABS: Alanine Aminotransferase 29 U/L (0-40); Albumin Level 4.5 g/dL (3.5-5.0); Alkaline Phosphatase 92 U/L (39-117); Anion Gap 11 (12-20); Aspartate Amino Transferase 41 U/L (5-37); Blood Urea Nitrogen 14 mg/dL (9-16); Calcium 9.2 mg/dL (8.4-10.2); Carbon Dioxide 25 mmol/L (22-29); Chloride 111 mmol/L (96-108); Cholesterol 136 mg/dL (<200); Estimated Glomerular Filt Rate > 60; HDL Cholesterol 51 mg/dL (>40); Potassium 4.1 mmol/L (3.3-5.1); Sodium 143 mmol/L (135-145); Total Protein 7.4 g/dL (6.5-8.0); Triglycerides 59 mg/dL (<150)
[2024-12-08 09:21] LABS: Thyroid Stimulating Hormone 1.93 uIU/mL (0.32-4.0)
== END 2024-12-08 07:53 | disposition home or self-care (01) ==
LOC: HO.LAB 07:52
PROVIDERS: PCP Internal Medicine; Visit Provider Internal Medicine
DX: E78.5 Hyperlipidemia, unspecified (principal)
CPT/HCPCS: 36415; 80048; 80061; 80076; 84443; 85027; 85652

== ENCOUNTER → 2025-01-14 13:27 | Outpatient (AMB) | payer OTHER, SELFPAY ==
[2025-01-14 13:34] VITALS: BMI 18.3
--- NOTE | 2025-01-14 13:34 | A.OFFVIS_ITS ---
Vital Signs 01/14/25 13:34 Height 5 ft 7 in Weight 117 lb BMI 18.3 Intake Visit Reasons: OV-Pain in both shoulders/LT Shoulder worse Intake Note: Saleem is a 54 year old male who presents today for a follow up of bilateral shoulder pain. Patient was last seen on 05/20/22, he was given bilateral shoulder injections. Today patient reports that the injections did help he wants to repeat the injections right hand dominit lose of range of motion Allergies No Known Allergies Allergy (Verified 01/14/25 13:34) Medication List - Last Reconciled 01/14/25 by Berhane Cohen PA-C aspirin 81 mg PO DAILY 90 days atorvastatin 80 mg PO BEDTIME clopidogrel 75 mg PO DAILY HPI HPI OV-Pain in both shoulders/LT Shoulder worse: Details: 54-year-old gentleman returns to the office today for bilateral shoulder pain. He had seen me back in May of 2022 for both shoulders and had steroid injections which were helpful up until recently. 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 Also has difficulty with sleeping due to the pain. [facility] Medical History (Updated 01/14/25 @ 13:50 by Berhane Cohen PA-C) Encounter for colorectal cancer screening using Cologuard test (~12/30/22) Hypersomnia Snoring Hyperlipidemia Stroke Surgical History No pertinent past surgical history Family History Father Epilepsy Mother Esophageal cancer Maternal Aunt Breast CA Maternal Aunt Lung cancer Daughter No problems noted. Son No problems noted. 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 Tenderness over the bicipital groove and along the deltoid region of the shoulder. Forward flexion to 175, external rotation to 90, internal rotation to S1. 5/5 RTC strength. Positive Xiong and cross body abduction. NVI. Office Procedures AMB Joint Injection/Aspiration Joint Injection/Aspiration Primary Site: Right Shoulder Secondary Site: Left Shoulder Prep: site was prepped using aseptic technique, ethochloride spray was applied and injection warnings given Injected: 40 mg of, Decadron, with 3 mL of, 1% plain Lidocaine, 0.25% Bupivacaine and in the subcromial space Approach Used: posterolateral Procedure: The patient tolerated the procedure well and there was some relief with the local anesthesia Coding 02050 - Glenohumeral/Tronchanteric Bursa/Intraarticular Procedure code (CPT) selection complete Results Reviewed Results Reviewed: Xrays were obtained in the office today and personally reviewed by me of both shouldrs signficant for ac joint oa without signs of acute fracture or dislocation Assessment & Plan Assessment & Plan (1) Tendonitis of both rotator cuffs: Code(s): M75.81 - Other shoulder lesions, right shoulder; M75.82 - Other shoulder lesions, left shoulder Category: Medical Plan We discussed options today, which include steroid injection. The patient did consent to move forward with the bilat shoulder injection, which was tolerated well.? I recommended rest, ice and elevation and OTC antiinflammatories prn for discomfort. If symptoms persist over the next 6-8 weeks, they will contact our office, otherwise, prn Orders: Orders XR Shoulder Ahbilash min 2V Today M25.519 - Pain in unspecified shoulder Coding Level of Care Code Est Pt Level 3 (68386) Complex visit Add On G2211 Diagnoses Tendonitis of both rotator cuffs M75.81; M75.82 CPT Codes Coding - Joint 7: 47266 - Glenohumeral/Tronchanteric Bursa/Intraarticular ([id number])
--- OUTSIDE RECORDS SUMMARY | 2025-01-14 17:33 | XMS_ITS | Clinical Summary ---
Author Organization [facility] Address [address] [place] [address] Phone Care Team Providers Care Top Lift Compresser Name Role Phone Unknown, Unknown Primary Care [...] topic Medical Devices Not on file Insurance [facility] PPO BLUE CROSS OUT OF STATE PPO BLUE CROSS OUT OF STATE PPO BLUE CROSS OUT OF STATE [place] [address] [place] [address] [address] [place] [address] [place] [address] OUT OF [facility] PPO BLUE CROSS OUT OF STATE PPO Member Subscriber Plan / Payer (Ef fective 2014-Present) Name:Chauncey Saleem Relation to Subscriber:Spouse Name:DAVIDAUBREEESTELLA Date of :1901 (Home) Address: [address] [place] [address] Payer ID:[id number] (NAIC) Type:PPO Address: [address] [place] [id number] BLUE CROSS OUT OF STATE PPO BLUE CROSS OUT OF STATE PPO Care Teams Top Lift Compresser Relationship Specialty Start Date End Date Unknown, Unknown, PCP - General 04/02/17 Additional Source Comments The information contained in this document represents components of the legal health record. It is not the complete legal health record.[facility]
== END ==
LOC: HO.HOS 13:27
PROVIDERS: PCP Internal Medicine; Visit Provider Physician Assistant
DX: M75.81 Other shoulder lesions, right shoulder (principal); M75.82 Other shoulder lesions, left shoulder
CPT/HCPCS: 20610; 99213

== ENCOUNTER → 2025-01-14 13:29 | Outpatient (BNV) | payer OTHER, SELFPAY | PROVIDERS: Visit Provider Radiology Diagnostic Radiology | DX: M19.012 Primary osteoarthritis, left shoulder (principal); M19.011 Primary osteoarthritis, right shoulder | CPT/HCPCS: 73030 ==

== ENCOUNTER 2025-01-14 17:49 | Outpatient (REF) | payer OTHER, SELFPAY ==
--- NOTE | ~2025-01-14 | XR_ITS ---
EXAMINATION: XR SHOULDER, ABHILASH 3V CLINICAL INFORMATION: M25.519 - Pain in unspecified shoulder COMPARISON: 05/20/2022. TECHNIQUE: Three views of each shoulder. FINDINGS: RIGHT SHOULDER: Normal bone mineralization. No fracture, dislocation, or suspicious bone lesion. Normal alignment. The glenohumeral joint is normal. The AC joint demonstrates mild degenerative spurring. There is a type II acromion. No undersurface spurring. The subacromial space is preserved. Remainder of the soft tissue and bony structures appear normal. LEFT SHOULDER: Normal bone mineralization. No fracture, dislocation, or suspicious bone lesion. Normal alignment. The glenohumeral joint is normal. The AC joint demonstrates mild degenerative spurring. There is a type II acromion. No undersurface spurring. The subacromial space is preserved. Remainder of the soft tissue and bony structures appear normal. XR/XR Shoulder Abhilash min 2V IMPRESSION: 1. Bilateral shoulders demonstrating no acute bony or soft tissue abnormalities. 2. There is mild bilateral AC joint arthritis. Electronically signed by: Hugo Ray MD 01/14/2025 01:45 PM [facility]
--- OUTSIDE RECORDS SUMMARY | 2025-01-16 17:51 | XMS_ITS | Clinical Summary ---
Author Organization [facility] Address [address] [place] [address] Phone Care Team Providers Care Chop Saw Operator Name Role Phone Unknown, Unknown Primary [...] topic Medical Devices Not on file Insurance [facility] PPO BLUE CROSS OUT OF STATE PPO BLUE CROSS OUT OF STATE PPO BLUE CROSS OUT [place] [address] [place] [address] [address] [place] [address] [place] [address] OUT OF [facility] PPO BLUE CROSS OUT OF STATE PPO Member Subscriber Plan / Payer (Ef fective 2014-Present) Name:Chauncey Saleem Relation to Subscriber:Spouse Name:DAVIDAUBREEESTELLA Date of :1901 (Home) Address: [address] [place] [address] Payer ID:[id number] (NAIC) Type:PPO Address: [address] [place] [phone] BLUE CROSS OUT OF STATE PPO BLUE CROSS OUT OF STATE PPO Care Teams Chop Saw Operator Relationship Specialty Start Date End Date Unknown, Unknown, PCP - General 04/02/17 Additional Source Comments The information contained in this document represents components of the legal health record. It is not the complete legal health record.[facility]
== END 2025-01-14 17:50 | disposition home or self-care (01) ==
LOC: HO.HOSX 17:49
PROVIDERS: Visit Provider Physician Assistant
DX: M75.81 Other shoulder lesions, right shoulder (principal); M75.82 Other shoulder lesions, left shoulder
CPT/HCPCS: 20610; 73030; J0665; J1100; J2003